=== PATIENT | male | born 1985 | race Caucasian/White ===

== ENCOUNTER 2021-06-02 09:42 | Outpatient (REF) | payer MEDICAID, SELFPAY ==
[2021-06-02 10:25] LABS: Estimated Average Glucose 269 mg/dL
[2021-06-02 10:48] LABS: Anion Gap 13 (12-20); Blood Urea Nitrogen 10 mg/dL (9-16); Calcium 9.7 mg/dL (8.4-10.2); Carbon Dioxide 25 mmol/L (22-29); Chloride 104 mmol/L (96-108); Estimated Glomerular Filt Rate > 60; Glucose Fasting 270 mg/dL (60-99); Potassium 4.9 mmol/L (3.3-5.1); Sodium 137 mmol/L (135-145)
== END 2021-06-02 09:43 | disposition home or self-care (01) ==
LOC: HO.LAB 09:42
PROVIDERS: Visit Provider Psychiatry & Neurology Child & Adolescent Psychiatry
DX: F25.1 Schizoaffective disorder, depressive type (principal)
CPT/HCPCS: 36415; 80048; 83036

== ENCOUNTER 2021-09-20 09:02 | Outpatient (REF) | payer OTHER, SELFPAY ==
--- NOTE | ~2021-09-20 | XR_ITS ---
EXAMINATION: XR KNEE, LEFT CLINICAL INFORMATION: Sprain COMPARISON: None TECHNIQUE: Four views of the left knee. FINDINGS: Bones and soft tissues are normal. No fracture or joint effusion. Alignment is anatomic. Joint spaces are well maintained. No abnormal soft tissue calcification. XR/XR knee LT 4V IMPRESSION: Normal left knee.
== END 2021-09-20 09:03 | disposition home or self-care (01) ==
LOC: HO.HMGCX 09:02
PROVIDERS: Visit Provider Internal Medicine
DX: S83.92XD Sprain of unspecified site of left knee, subsequent encounter (principal)
CPT/HCPCS: 73564

== ENCOUNTER 2021-10-14 07:26 | Outpatient (REF) | payer OTHER, SELFPAY ==
--- NOTE | ~2021-10-14 | MR_ITS ---
EXAMINATION: MR SHOULDER WITHOUT CONTRAST, RIGHT CLINICAL INFORMATION: Pain in the right shoulder. COMPARISON: None TECHNIQUE: MRI of the shoulder without contrast was performed on a high-field scanner. FINDINGS: ROTATOR CUFF: There is a small articular sided insertional tear of the supraspinatus tendon measuring 0.8 cm AP and involving approximately one third of the tendon thickness. There is associated articular cortical irregularity at the footprint on the greater tuberosity. Subscapularis, infraspinatus, and teres minor are normal. No muscle atrophy or fatty infiltration. BICEPS: Normal. CORACOACROMIAL ARCH: The undersurface of the acromion is curved with no subacromial spur. The acromioclavicular joint is normal. Mild subacromial subdeltoid bursitis. LABRUM/CAPSULE: There is a subtle cleft of intermediate signal intensity undercutting the posteroinferior labrum between the 8 o'clock position and 7 o'clock position (image 13/24 of series 2). A small adjacent 2 mm paralabral cyst is suspected in this region. GLENOHUMERAL JOINT/MARROW: Small marginal osteophyte at the glenoid rim posteriorly. Articular cartilage appears well-preserved. No joint effusion. Subtle subcortical edema at the greater tuberosity humerus is reactive to the overlying rotator cuff tendinopathy. MR/MR shoulder RT wo con IMPRESSION: 1. Small 0.8 cm (AP) articular sided insertional tear of the supraspinatus tendon. 2. Possible small posteroinferior labral tear with a 2 mm paralabral cyst. 3. Mild subacromial subdeltoid bursitis.
== END 2021-10-14 07:27 | disposition home or self-care (01) ==
LOC: HO.MRI 07:26
PROVIDERS: Visit Provider Nurse Practitioner Family
DX: M25.511 Pain in right shoulder (principal)
CPT/HCPCS: 73221

== ENCOUNTER 2021-11-08 07:37 | Outpatient (REF) | payer OTHER, SELFPAY ==
--- NOTE | ~2021-11-08 | XR_ITS ---
EXAMINATION: XR SHOULDER, RIGHT CLINICAL INFORMATION: Pain. COMPARISON: Portions of the right shoulder MRI dated 10/14/2021. TECHNIQUE: AP neutral,, scapular Y, and axillary views of the right shoulder. FINDINGS: The bones and soft tissues are normal. No fracture. Glenohumeral and acromioclavicular alignment is anatomic with normal joint space. No abnormal soft tissue calcifications. XR/XR shoulder RT min 2V IMPRESSION: Normal right shoulder.
== END 2021-11-08 07:38 | disposition home or self-care (01) ==
LOC: HO.HOSX 07:37
PROVIDERS: Visit Provider Physician Assistant
DX: M75.101 Unspecified rotator cuff tear or rupture of right shoulder, not specified as traumatic (principal); M54.50 Low back pain, unspecified
CPT/HCPCS: 73030; 99202

== ENCOUNTER 2021-11-23 08:00 | Outpatient (REF) | payer OTHER, SELFPAY ==
[2021-11-23 11:41] LABS: MANUAL DIFF FLAG NO
[2021-11-23 11:44] LABS: Appearance Urine CLEAR; Color Urine YELLOW; Glucose Urine UA NEG (NEG); Leukocyte Esterase Urine NEG (NEG); Nitrite Urine NEG (NEG); Specific Gravity - Urine >= 1.030 (1.005-1.025); Urine Blood NEG (NEG); Urine Ketones NEG (NEG); Urine Protein NEG (NEG-TRACE)
[2021-11-23 11:52] LABS: Basophils Absolute Auto 0.1 X10*3/uL (0.0-0.2); Basophils Percent Auto 0.9 % (0-2); Eosinophils Absolute Auto 0.3 X10*3/uL (0.0-0.4); Eosinophils Percent Auto 2.5 % (0-4); Hematocrit 47.1 % (42.0-52.0); Hemoglobin 16.7 g/dl (14.0-18.0); Imm Gran Abs Auto 0.23 X10*3/uL (0.00-0.03); Imm Gran Pct Auto 2.3 % (0.0-0.4); Lymphocytes Absolute Auto 3.1 X10*3/uL (1.2-4.9); Lymphocytes Percent Auto 30.9 % (20-40); Mean Corpuscular HGB Conc 35.5 g/dl (31.0-36.0); Mean Corpuscular Hemoglobin 31.1 pg (27.0-33.0); Mean Corpuscular Volume 87.7 fL (80.0-98.0); Mean Platelet Volume 10.1 fL (9.4-12.4); Monocytes Absolute Auto 0.8 X10*3/uL (0.1-1.2); Monocytes Percent Auto 7.5 % (2-11); Neutrophils Absolute Auto 5.6 x10*3/uL (2.0-8.3); Neutrophils Percent Auto 55.9 % (45-73); Platelet Count 297 X10*3/uL (160-400); Red Blood Count 5.37 X10*6/uL (4.60-5.80); Red Cell Distribution Width 12.6 % (11.0-16.0)
[2021-11-23 12:00] LABS: Estimated Average Glucose 140 mg/dL; Hemoglobin A1c % 6.5 %
[2021-11-23 12:15] LABS: Alanine Aminotransferase 38 U/L (0-40); Albumin Level 4.6 g/dL (3.5-5.0); Alkaline Phosphatase 65 U/L (39-117); Anion Gap 15 (12-20); Aspartate Amino Transferase 27 U/L (5-37); Bilirubin Total 0.5 mg/dL (0.0-1.0); Blood Urea Nitrogen 13 mg/dL (9-16); Calcium 9.3 mg/dL (8.4-10.2); Carbon Dioxide 25 mmol/L (22-29); Chloride 104 mmol/L (96-108); Cholesterol 178 mg/dL; Estimated Glomerular Filt Rate > 60; Glucose Fasting 163 mg/dL (60-99); HDL Cholesterol 37 mg/dL; LDL Cholesterol Calculated 117 mg/dl; Potassium 4.7 mmol/L (3.3-5.1); Sodium 139 mmol/L (135-145); Total Protein 7.2 g/dL (6.5-8.0); Triglycerides 120 mg/dL
[2021-11-23 12:23] LABS: TSH reflex Free T4 1.52 uIU/mL (0.32-4.0)
[2021-11-23 12:26] LABS: Microalbum/Creatinine Ratio Ur 3.7 ug/mg cr
== END 2021-11-23 08:01 | disposition home or self-care (01) ==
LOC: HO.HMGCLDS 08:00
PROVIDERS: PCP Nurse Practitioner Family; Visit Provider Nurse Practitioner Family
DX: Z00.00 Encounter for general adult medical examination without abnormal findings (principal); E11.9 Type 2 diabetes mellitus without complications
CPT/HCPCS: 36415; 80053; 80061; 81003; 82043; 83036; 84443; 85025

== ENCOUNTER → 2021-12-12 09:23 | Outpatient (BNVA) | payer OTHER, SELFPAY | PROVIDERS: PCP Nurse Practitioner Family; Visit Provider Internal Medicine | DX: M54.50 Low back pain, unspecified (principal); M25.552 Pain in left hip; M53.3 Sacrococcygeal disorders, not elsewhere classified | CPT/HCPCS: 99202 ==

== ENCOUNTER 2022-01-18 09:00 | Outpatient (RCR) | payer OTHER, SELFPAY ==
--- NOTE | 2022-01-03 08:54 | MHC.PT.EP ---
[facility] [place] [facility] [place] [facility] [place] [facility] [address] Mai [address] [phone] F: [phone] F: [phone] F: [phone] F: [phone] Physical Therapy Plan of Care Date of Evaluation: Date of Surgery: n/a Diagnosis: low back pain, pain in L hip Assessment: Patient is a 36 year old male presenting to PT with complaints of pain in his low back and L hip. Pt reports onset of pain began as a child due to shattering his tailbone . He presents today with impairments in pain, lumbar ROM, hip strength, core strength, and posture. 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 Pt expresses terminal make up operator goal of reducing pain, and is motivated to work towards this in PT. Clinical presentation today is most consistent with signs and sx associated with chronic hip and back pain likely as a result of injuries as a child and pt will benefit from skilled PT to address the following problems and impairments noted upon evaluation: pain, lumbar ROM, hip strength, core strength, and posture. Recommend following up with ortho regarding his L hip and feeling like it is popping out at times. These problems limit the patient with the following functional activities: standing, sitting, ADLs, work. The prescribed treatment plan of care is medically necessary. Co-morbidities of DM were identified and taken into considerations of plan of care. Pt was educated on HEP, role of PT, prognosis, POC. Frequency and Duration: The patient will be seen 2 x week x 4 weeks Short Term Goals: Pt will demosntrate improved hip MMT strength by 1/3 grade in 2 weeks for improved lumbopelvic stability. Pt will demonstrate ability to perform PPT with good TA recruitment in 2 weeks. Pt will demonstrate improved postural awareness by sitting with biomechanically correct posture without cues throughout session to improve overall postural function in 2 weeks. Quality Process Lead Goals: Pt will demonstrate improved Herminio score by 10% in 4 weeks for improved functional mobility. Pt will demonstrate ability to stand with minimal to no pain in 4 weeks for improved tolerance to work. Pt will demonstrate ability to complete all ADLs with min to no pain in 4 weeks for return to PLOF. Treatment Plan: Modalities to reduce pain, spasms and effusion. Manual therapy to restore motion and function. Therapeutic exercise to improve strength and flexibility. Neuromuscular re-education for posture and balance. Therapeutic activities to return to functional activities of daily living. Electronically signed by: Dari Garza, PT, DPT, ATC Please sign and return to therapist. Thank you for your referral.
--- NOTE | 2022-01-27 08:54 | MHC.PT.DC ---
[facility] [place] [facility] [place] Office [place] Office [address] [phone] F: [phone] F: [phone] F: [phone] F: [phone] Physical Therapy Discharge Report Diagnosis: low back pain, pain in L hip Date of Surgery: n/a Date of Evaluation: 01/03/22 Date of Discharge: 01/27/22 Treatments to Date: 5 Cancellations to Date: 1 No Shows to Date: 0 Discharge Status: Patient Elected to Stop Discharge Summary: Pt self d/c. Called stating he would like to stop therapy at this time. Electronically signed by: Dari Garza, PT, DPT, ATC Please sign and return to therapist. Thank you for your referral.
== END 2022-01-27 08:55 | disposition home or self-care (01) ==
LOC: HO.PTCHIC 09:00
PROVIDERS: PCP Nurse Practitioner Family; Visit Provider Internal Medicine
DX: M54.50 Low back pain, unspecified (principal); M53.3 Sacrococcygeal disorders, not elsewhere classified; M25.552 Pain in left hip
CPT/HCPCS: 97110; 97161

== ENCOUNTER 2022-02-06 08:30 | Outpatient (REF) | payer OTHER, SELFPAY ==
--- NOTE | ~2022-02-06 | XR_ITS ---
EXAMINATION: XR HIP, LEFT CLINICAL INFORMATION: Pain. COMPARISON: None TECHNIQUE: AP and frog-leg lateral views of the left hip. FINDINGS: Bony alignment and mineralization are normal. The left acetabular joint space is well-maintained. There is minimal peripheral osteophyte formation of the left acetabular roof. The left femoral head appears smooth. There is no fracture or dislocation. A sclerotic, well marginated bone island is seen within the left ischium. No foreign body is seen. XR/XR hip LT min 2V IMPRESSION: Minimal osteoarthritic change is seen of the left hip. No fracture or dislocation is seen.
== END 2022-02-06 08:31 | disposition home or self-care (01) ==
LOC: HO.HMGCX 08:30
PROVIDERS: PCP Nurse Practitioner Family; Visit Provider Internal Medicine
DX: M25.552 Pain in left hip (principal); M54.50 Low back pain, unspecified; Z79.899 Other long term (current) drug therapy
CPT/HCPCS: 73502; 99212

== ENCOUNTER → 2022-04-10 15:31 | Outpatient (BNVA) | payer OTHER, SELFPAY | PROVIDERS: PCP Nurse Practitioner Family; Visit Provider Internal Medicine | DX: M54.50 Low back pain, unspecified (principal); M25.552 Pain in left hip | CPT/HCPCS: 99212 ==

== ENCOUNTER 2022-06-08 08:00 | Outpatient (RCR) | payer OTHER, SELFPAY ==
--- NOTE | 2022-05-17 16:17 | MHC.PT.EP ---
[facility] [place] Office [place] Office [place] Office [address] [phone] F: [phone] F: [phone] F: [phone] F: [phone] Physical Therapy Plan of Care Date of Evaluation: Date of Surgery: Diagnosis: LBP Assessment: Pt is a 36 y/o male referred to PT for eval and treat of low back pain resulting in decreased tolerance for sitting, walking and standing, performing heavy HH chores, as well as disturbed sleep secondary to decreased trunk ROM and strength, decreased hip strength, L LE radicular Sx, TTP of + L lower extremity neural tension test, and pain. Pt is deemed an appropriate candidate to receive skilled PT services to address their physical impairments in order to improve thier functional ability. Frequency and Duration: The patient will be seen 4 x/ wk x 4 wks. Short Term Goals: Initiate HEP LE radicular/ sciatic Sx abolished. Cap Blocker Goals: Initiate HEP Improve core strength to > good; initial Good (-) (diastasis recti noted) Pt will be able to sit > 1 hour with managed Sx; initial: < 10 min. Pt will be able to walk long distances with some pain; initial: Pain limits from walking even short distances. Treatment Plan: Modalities to reduce pain, spasms and effusion. Manual therapy to restore motion and function. Therapeutic exercise to improve strength and flexibility. Neuromuscular re-education for posture and balance. Therapeutic activities to return to functional activities of daily living. Electronically signed by: José Miguel Fine PT Please sign and return to therapist. Thank you for your referral.
--- NOTE | 2022-07-11 14:24 | MHC.PT.DC ---
[facility] [place] [facility] [place] [facility] [place] [facility] [address] Mai [address] [facility] [phone] F: [phone] F: [phone] F: [phone] F: [phone] Physical Therapy Discharge Report Diagnosis: LBP Date of Surgery: Date of Evaluation: 05/17/22 Date of Discharge: 07/11/22 Treatments to Date: 7 Cancellations to Date: 3 No Shows to Date: Discharge Status: Improved Function Independent with HEP Patient Elected to Stop Discharge Summary: Pt logged 3 cancellations at the end of his therapy electing to end his treatment after making some improvements. Electronically signed by: José Miguel Fine PT. Please sign and return to therapist. Thank you for your referral.
== END 2022-07-11 14:26 | disposition home or self-care (01) ==
LOC: HO.PTCHIC 08:00
PROVIDERS: PCP Nurse Practitioner Family; Visit Provider Internal Medicine
DX: M54.50 Low back pain, unspecified (principal)
CPT/HCPCS: 97110; 97161

== ENCOUNTER 2022-06-24 11:01 | Outpatient (REF) | payer OTHER, SELFPAY ==
--- NOTE | ~2022-06-24 | XR_ITS ---
EXAMINATION: XR CHEST CLINICAL INFORMATION: Cough. COMPARISON: None TECHNIQUE: 2 views of the chest were obtained. FINDINGS: No significant abnormality is noted involving the heart, lungs, mediastinum, bony thorax or soft tissues. XR/XR chest 2V IMPRESSION: Unremarkable chest examination.
== END 2022-06-24 11:02 | disposition home or self-care (01) ==
LOC: HO.HMGCX 11:01
PROVIDERS: PCP Nurse Practitioner Family; Visit Provider Physician Assistant Medical
DX: R05.9 Cough, unspecified (principal)
CPT/HCPCS: 71046

== ENCOUNTER 2022-06-24 11:14 | Outpatient (REF) | payer OTHER, SELFPAY ==
[2022-06-24 14:58] LABS: Influenza A PCR NEGATIVE (Negative); Influenza B PCR NEGATIVE (Negative); Resp Syncy Virus RNA Qual PCR NEGATIVE (Negative); SARS COV2 PCR INHOUSE NEGATIVE (Negative)
== END 2022-06-24 11:15 | disposition home or self-care (01) ==
LOC: HO.LAB 11:14
PROVIDERS: Visit Provider Physician Assistant Medical
DX: Z20.822 Contact with and (suspected) exposure to COVID-19 (principal); R05.9 Cough, unspecified
CPT/HCPCS: 0241U

== ENCOUNTER 2022-09-20 08:00 | Outpatient (REF) | payer OTHER, SELFPAY ==
[2022-09-20 11:13] LABS: Appearance Urine Turbid; Color Urine Yellow; Glucose Urine UA Negative (Negative); Leukocyte Esterase Urine Negative (Negative); Nitrite Urine Negative (Negative); PH 5.5 (5.0-9.0); Specific Gravity - Urine 1.025 (1.005-1.025); Urine Blood Negative (Negative); Urine Ketones Negative (Negative); Urine Protein Negative (Neg-Trace)
[2022-09-20 11:20] LABS: MANUAL DIFF FLAG NO
[2022-09-20 11:46] LABS: Basophils Absolute Auto 0.1 X10*3/uL (0.0-0.2); Basophils Percent Auto 0.8 % (0-2); Eosinophils Absolute Auto 0.1 X10*3/uL (0.0-0.4); Eosinophils Percent Auto 1.2 % (0-4); Hematocrit 44.3 % (42.0-52.0); Imm Gran Abs Auto 0.09 X10*3/uL (0.00-0.03); Lymphocytes Absolute Auto 2.7 X10*3/uL (1.2-4.9); Mean Corpuscular HGB Conc 36.1 g/dl (31.0-36.0); Mean Corpuscular Hemoglobin 30.5 pg (27.0-33.0); Mean Corpuscular Volume 84.5 fL (80.0-98.0); Mean Platelet Volume 10.3 fL (9.4-12.4); Monocytes Absolute Auto 0.6 X10*3/uL (0.1-1.2); Monocytes Percent Auto 6.8 % (2-11); Neutrophils Absolute Auto 5.8 x10*3/uL (2.0-8.3); Neutrophils Percent Auto 61.2 % (45-73); Platelet Count 283 X10*3/uL (160-400); Red Blood Count 5.24 X10*6/uL (4.60-5.80); Red Cell Distribution Width 12.3 % (11.0-16.0); White Blood Count 9.4 X10*3/uL (4.8-10.8)
[2022-09-20 11:57] LABS: Estimated Average Glucose 128 mg/dL; Hemoglobin A1c % 6.1 %
[2022-09-20 12:01] LABS: Alanine Aminotransferase 38 U/L (0-40); Albumin Level 4.7 g/dL (3.5-5.0); Alkaline Phosphatase 72 U/L (39-117); Anion Gap 14 (12-20); Aspartate Amino Transferase 27 U/L (5-37); Bilirubin Total 0.7 mg/dL (0.0-1.0); Blood Urea Nitrogen 15 mg/dL (9-16); Calcium 9.5 mg/dL (8.4-10.2); Carbon Dioxide 22 mmol/L (22-29); Chloride 109 mmol/L (96-108); Cholesterol 165 mg/dL; Estimated Glomerular Filt Rate > 60; Glucose Fasting 145 mg/dL (60-99); HDL Cholesterol 33 mg/dL; LDL Cholesterol Calculated 116 mg/dl; Potassium 4.5 mmol/L (3.3-5.1); Sodium 140 mmol/L (135-145); TSH reflex Free T4 1.52 uIU/mL (0.32-4.0); Total Protein 7.1 g/dL (6.5-8.0); Triglycerides 82 mg/dL
== END 2022-09-20 08:01 | disposition home or self-care (01) ==
LOC: HO.HMGCLDS 08:00
PROVIDERS: Absent Provider Clinical Nurse Specialist Psychiatric/Mental Health, Adult; PCP Nurse Practitioner Family; Visit Provider Nurse Practitioner Family
DX: F25.1 Schizoaffective disorder, depressive type (principal); E11.9 Type 2 diabetes mellitus without complications
CPT/HCPCS: 36415; 80053; 80061; 81003; 83036; 84443; 85025

== ENCOUNTER → 2022-09-20 09:37 | Outpatient (REF) | payer OTHER, SELFPAY ==
--- NOTE | 2022-09-20 09:43 | ECG_ITS ---
Test Reason : 279.899 Blood Pressure : / mmHG Vent. Rate : 070 BPM Atrial Rate : 070 BPM P-R Int : 178 ms QRS Dur : 082 ms QT Int : 384 ms P-R-T Axes : -05 -05 016 degrees QTc Int : 414 ms Sinus rhythm with marked sinus arrhythmia Otherwise normal ECG No previous ECGs available Referred By: Salina Gil Electronically Signed By:Jamir Orozco
== END ==
LOC: HO.CARD 09:37
PROVIDERS: PCP Nurse Practitioner Family; Visit Provider Clinical Nurse Specialist Psychiatric/Mental Health, Adult
DX: Z79.899 Other long term (current) drug therapy (principal)
CPT/HCPCS: 93005

== ENCOUNTER 2023-04-11 07:52 | Outpatient (REF) | payer OTHER, SELFPAY ==
[2023-04-11 11:31] LABS: MANUAL DIFF FLAG NO
[2023-04-11 11:37] LABS: Basophils Absolute Auto 0.1 X10*3/uL (0.0-0.2); Basophils Percent Auto 1.1 % (0-2); Eosinophils Absolute Auto 0.2 X10*3/uL (0.0-0.4); Eosinophils Percent Auto 1.9 % (0-4); Hematocrit 45.6 % (42.0-52.0); Hemoglobin 16.6 g/dl (14.0-18.0); Imm Gran Abs Auto 0.44 X10*3/uL (0.00-0.03); Imm Gran Pct Auto 4.2 % (0.0-0.4); Lymphocytes Absolute Auto 3.8 X10*3/uL (1.2-4.9); Mean Corpuscular HGB Conc 36.4 g/dl (31.0-36.0); Mean Corpuscular Hemoglobin 31.2 pg (27.0-33.0); Mean Corpuscular Volume 85.7 fL (80.0-98.0); Monocytes Absolute Auto 0.6 X10*3/uL (0.1-1.2); Neutrophils Absolute Auto 5.4 x10*3/uL (2.0-8.3); Neutrophils Percent Auto 50.8 % (45-73); Platelet Count 262 X10*3/uL (160-400); Red Blood Count 5.32 X10*6/uL (4.60-5.80); Red Cell Distribution Width 12.7 % (11.0-16.0); White Blood Count 10.6 X10*3/uL (4.8-10.8)
[2023-04-11 11:39] LABS: Appearance Urine Clear; Color Urine Yellow; Glucose Urine UA Negative (Negative); Leukocyte Esterase Urine Negative (Negative); Nitrite Urine Negative (Negative); PH 5.5 (5.0-9.0); Urine Blood Negative (Negative); Urine Ketones Negative (Negative); Urine Protein Negative (Neg-Trace)
[2023-04-11 12:39] LABS: Creatinine Urine 190.67 mg/dL; Microalbum/Creatinine Ratio Ur 5.7 ug/mg cr (<30)
[2023-04-11 12:40] LABS: Alanine Aminotransferase 59 U/L (0-40); Albumin Level 4.5 g/dL (3.5-5.0); Alkaline Phosphatase 63 U/L (39-117); Anion Gap 15 (12-20); Aspartate Amino Transferase 39 U/L (5-37); Bilirubin Total 0.6 mg/dL (0.0-1.0); Blood Urea Nitrogen 12 mg/dL (9-16); Calcium 9.4 mg/dL (8.4-10.2); Carbon Dioxide 22 mmol/L (22-29); Chloride 104 mmol/L (96-108); Cholesterol 184 mg/dL (<200); Estimated Glomerular Filt Rate > 60; Glucose Fasting 199 mg/dL (60-99); HDL Cholesterol 37 mg/dL (>40); LDL Cholesterol Calculated 105 mg/dL (<100); Potassium 4.2 mmol/L (3.3-5.1); Sodium 137 mmol/L (135-145); Total Protein 7.5 g/dL (6.5-8.0); Triglycerides 213 mg/dL (<150)
[2023-04-11 13:00] LABS: TSH reflex Free T4 1.75 uIU/mL (0.32-4.0)
[2023-04-16 15:07] LABS: Testosterone, Total 226 ng/dL (250-1100)
== END 2023-04-11 07:53 | disposition home or self-care (01) ==
LOC: HO.HMGCLDS 07:52
PROVIDERS: PCP Nurse Practitioner Family; Visit Provider Nurse Practitioner Family
DX: Z00.00 Encounter for general adult medical examination without abnormal findings (principal); E11.9 Type 2 diabetes mellitus without complications; R53.83 Other fatigue
CPT/HCPCS: 36415; 80053; 80061; 81003; 82043; 82570; 84402; 84403; 84443; 85025

== ENCOUNTER 2023-04-11 08:42 | Outpatient (AMB) | payer OTHER, SELFPAY ==
--- NOTE | 2023-04-11 08:44 | MHC.PC.OV ---
Vital Signs 04/11/23 08:46 Height 5 ft 4 in Weight 222 lb 2 oz BMI 38.1 BP 118/78 Blood Pressure Location Lt brachial Position Sitting Pulse 102 H Pulse Source Pulse Oximeter Pulse Oximetry (%) 98 Oxygen Delivery Method Room Air Intake Visit Reasons: 4M follow up Allergies cefaclor [From Ceclor] Allergy (Mild, Verified 04/11/23 08:47) Rash sulfamethoxazole [From Bactrim] Allergy (Mild, Verified 04/11/23 08:47) Rash trimethoprim [From Bactrim] Allergy (Mild, Verified 04/11/23 08:47) Rash metformin Adverse Reaction (Intermediate, Verified 04/11/23 08:47) Nausea cillins Allergy (Intermediate, Uncoded 04/11/23 08:47) Anaphylaxis Medication List - Last Reconciled 04/11/23 by Luis Rojas [employer] W[employer] ATTENDANT- paliperidone palmitate (Invega Sustenna) mg IM Tobacco use date assessed: 12/13/22 HPI 4M follow up HPI Details Pt is a diabetic. A1C in office today is 7.0. Due for microalbumin, will order. Denies polyuria, polydipsia, and neuropathy. Pt denies any signs and symptoms of hypoglycemia and does know how to correct it. Due for eye exam, will refer to optometry. Pt has not been checking his blood sugar. Refuses pneumonia vaccine. Will start jardiance today. awaiting lab results, which were drawn this am. Highly encouraged pt start taking his sugars more often PFSH Social History Housing: House Patient Tobacco Use Status: Former Tobacco user Cigarettes Per Day: 4 e-Cigarette/Vaping Use: Currently Using Second Hand Smoke Exposure: No service: No Current occupational status: employed Cognitive needs: No Hearing needs: No Vision needs: No Questionnaire Thrive Questionnaire Date Thrive assessed: 08/15/22 KATIE-7 AMB Questionnaire KATIE-7 Date KATIE - 7 assessed: 08/15/22 Source: Developed by Drs. Ld Miller, Talia Gu, Isaac Hooks and colleagues, with an educational alfonso from [employer]. Review of Systems Const Reports as per HPI Physical exam (Primary Care) Vital Signs: Last Vital Signs Pulse 102 H 04/11/23 08:46 BP 118/78 04/11/23 08:46 Pulse Ox 98 04/11/23 08:46 Oxygen Delivery Method Room Air 04/11/23 08:46 BMI result Body Mass Index 38.1 Tobacco/Smoking Status: Tobacco use Status Tobacco use date assessed 12/13/22 04/11/23 08:46 Patient Tobacco Use Status Former Tobacco user 04/11/23 08:46 e-Cigarette/Vaping Use Currently Using 04/11/23 08:46 Thrive Assessment: Date of Thrive Assessment Date Thrive assessed 08/15/22 04/11/23 08:46 Const General: cooperative Nutritional Appearance: obese Orientation/consciousness: patient oriented x3 Resp Effort & Inspection: normal respiratory effort Auscultation: clear to auscultation bilaterally Cardio Rate: regular rate Rhythm: regular rhythm Heart sounds: S1 normal heart sound present and S2 normal heart sound present Neuro General: patient oriented x3 Extrem Other: bilat feet: + sensation of use of monofilament, no ulcerations or lesions Psych Appearance: grossly normal Mental Status: mental status grossly normal Speech and movement: Normal speech and movement present Affect: normal affect Attitude: cooperative Thought process: Normal thought process present Thought content: Normal thought content present Insight: Good insight present (Psych) Judgement: Good judgement present (Psych) Results AMB Hemoglobin A1c AMB Hemoglobin A1c 7.0 % Last Edit by EMANUEL Herring on 04/11/23 09:06 Assessment and Plan Assessment & Plan (1) Diabetes: Code(s): E11.9 - Type 2 diabetes mellitus without complications Plan: Labs ordered Plan The patient agreed to the use of a medical management specialist for this encounter. Scribed for SERGIO Summers by Cyndy Olivo medical management specialist, on 04/11/2023 at 08:55 EST Orders: Orders AMB Hemoglobin A1c Today Z13.9 - Encounter for screening, unspecified Referrals Optometry Referral E11.9 - Type 2 diabetes mellitus without complications Medications: New empagliflozin (Jardiance) 10 mg PO DAILY 30 days 30 tabs 3RF Coding Level of Care Code Est Pt Level 3 (77122) Diagnoses Diabetes E11.9
[2023-04-11 08:46] VITALS: BP 118/78; PULSE 102; O2SAT 98; BMI 38.1
== END 2023-04-11 11:38 | disposition home or self-care (01) ==
PROVIDERS: PCP Nurse Practitioner Family; Visit Provider Nurse Practitioner Family
DX: E11.9 Type 2 diabetes mellitus without complications (principal)
CPT/HCPCS: 83036; 99213

== ENCOUNTER 2023-05-18 07:58 | Outpatient (AMB) | payer OTHER, SELFPAY ==
--- NOTE | 2023-05-18 08:13 | MHC.OFFWIV ---
Intake Vital Signs 05/18/23 08:14 Height 5 ft 4 in Weight 222 lb BMI 38.1 BP 120/70 Blood Pressure Location Lt brachial Position Sitting Pulse 73 Pulse Source Pulse Oximeter Temp 98.0 F Temp Source Oral Pulse Oximetry (%) 98 Oxygen Delivery Method Room Air Intake Visit Reasons: EST/back pain right side (lobby) Intake Note: Pt is here today c/o lower Rt back pain, woke up with pain x1week ago Patient Tobacco Use Status: Former Tobacco user Allergies cefaclor [From Ceclor] Allergy (Mild, Verified 05/18/23 08:15) Rash sulfamethoxazole [From Bactrim] Allergy (Mild, Verified 05/18/23 08:15) Rash trimethoprim [From Bactrim] Allergy (Mild, Verified 05/18/23 08:15) Rash metformin Adverse Reaction (Intermediate, Verified 05/18/23 08:15) Nausea cillins Allergy (Intermediate, Uncoded 05/18/23 08:15) Anaphylaxis Do you need a note to return to daycare/school/sports/work: No HPI HPI Comments History of Present Illness Details This is a 37-year-old male who presents to the office today for sick visit. Patient complaining of right-sided low back pain x1 week. patient states he has a history of left-sided sciatica, which has been under good control with physical therapy and stretching exercises. He states that he has been extremely busy for the past 1 month and he has not been doing his exercises as much as he should be. He started to develop mild right-sided low back pain with radiation into his right buttock. He denies any specific trauma or injury that occurred 1 week ago. he denies any red flag symptoms such as fever/chills, saddle anesthesias, numbness/weakness / paresthesias of extremities, or bowel / bladder incontinence/ retention. He has no urinary symptoms such as urinary frequency/ urgency or hematuria. Patient is requesting a physical therapy referral. [facility] Social History Housing: House Patient Tobacco Use Status: Former Tobacco user Cigarettes Per Day: 4 e-Cigarette/Vaping Use: Currently Using Second Hand Smoke Exposure: No service: No Current occupational status: employed Cognitive needs: No Hearing needs: No Vision needs: No Review of Systems Const All systems reviewed & are unremarkable except as noted in HPI and below Reports no additional complaints Eyes Reports no additional complaints ENT Reports no additional complaints Card Reports no additional complaints Resp Reports no additional complaints GI Reports no additional complaints Reports no additional complaints Musc Reports no additional complaints Skin/Breast Reports system reviewed and no additional complaints, except as documented Neuro Reports no additional complaints Psych Reports no additional complaints Endo Reports no additional complaints Tomy/Lymph Reports no additional complaints Aller/Immun Reports no additional complaints Physical Exam Vital Signs: Last Vital Signs Temp 98.0 F 05/18/23 08:14 Pulse 73 05/18/23 08:14 BP 120/70 05/18/23 08:14 Pulse Ox 98 05/18/23 08:14 Oxygen Delivery Method Room Air 05/18/23 08:14 BMI result Body Mass Index 38.1 Const Other: Vital signs reviewed. Constitutional: Non-toxic appearing. No acute distress. Well-developed and well-nourished. HEENT: Normocephalic and atraumatic. Skin: Warm and dry. No rashes or lesions noted. Neck: Full and painless range of motion. No cervical lymphadenopathy. Cardio: Regular rate. No lower extremity edema. No JVD. Pulmonary: No respiratory distress. No accessory muscle usage. Gastrointestinal: Soft, nontender, and nondistended in all 4 quadrants. Normoactive bowel sounds in all 4 quadrants. Genitourinary: No CVA tenderness. Musculoskeletal: Mild tenderness to palpation of the right lumbar paraspinal musculature. No midline or spinous process tenderness to palpation. Neuro: Alert and oriented x4. Cranial nerves 2-12 grossly intact. No focal deficits appreciated. Psych: Normal mood and affect. Assessment & Plan Assessment & Plan (1) Right sided sciatica: Code(s): M54.31 - Sciatica, right side Plan: This is a 37-year-old male presenting to the office complaining of right-sided low back pain x1 week. on physical examination, he is mild tenderness to palpation of the right lumbar paraspinal musculature but no midline / spinous process tenderness to palpation. Patient has no red flag symptoms to suggest a neurosurgical emergency. Patient has been given a referral to physical therapy. Patient has been given a prescription for p.o. cyclobenzaprine 10 mg every night at bedtime as needed for muscle spasms. Recommended acetaminophen/ibuprofen for pain management. Recommended heat to the area. Patient was advised to follow-up here or proceed to the emergency room if he were to develop persistent/worsening symptoms. Patient verbalizes understanding and he is in agreement with the plan. Orders: Orders PT Evaluation and Treatment Today M54.31 - Sciatica, right side Medications: New cyclobenzaprine 10 mg PO BEDTIME PRN 30 tabs 0RF muscle spasm Coding Level of Care Code Est Pt Level 3 (53729) Diagnoses Right sided sciatica M54.31
[2023-05-18 08:14] VITALS: BP 120/70; PULSE 73; TEMP 36.7; O2SAT 98; BMI 38.1
== END 2023-05-18 08:40 | disposition home or self-care (01) ==
PROVIDERS: PCP Nurse Practitioner Family; Visit Provider Physician Assistant Medical
DX: M54.31 Sciatica, right side (principal); F17.290 Nicotine dependence, other tobacco product, uncomplicated
CPT/HCPCS: 99213

== ENCOUNTER 2023-05-25 08:15 | Outpatient (REF) | payer OTHER, SELFPAY ==
[2023-05-25 12:22] LABS: MANUAL DIFF FLAG NO
[2023-05-25 12:31] LABS: Basophils Absolute Auto 0.1 X10*3/uL (0.0-0.2); Basophils Percent Auto 1.2 % (0-2); Eosinophils Absolute Auto 0.1 X10*3/uL (0.0-0.4); Eosinophils Percent Auto 1.4 % (0-4); Hematocrit 46.5 % (42.0-52.0); Hemoglobin 16.6 g/dl (14.0-18.0); Imm Gran Abs Auto 0.41 X10*3/uL (0.00-0.03); Imm Gran Pct Auto 4.1 % (0.0-0.4); Lymphocytes Absolute Auto 3.8 X10*3/uL (1.2-4.9); Lymphocytes Percent Auto 38.1 % (20-40); Mean Corpuscular HGB Conc 35.7 g/dl (31.0-36.0); Mean Corpuscular Hemoglobin 30.5 pg (27.0-33.0); Mean Corpuscular Volume 85.3 fL (80.0-98.0); Mean Platelet Volume 9.8 fL (9.4-12.4); Monocytes Absolute Auto 0.6 X10*3/uL (0.1-1.2); Monocytes Percent Auto 6.4 % (2-11); Neutrophils Absolute Auto 4.9 x10*3/uL (2.0-8.3); Neutrophils Percent Auto 48.8 % (45-73); Platelet Count 269 X10*3/uL (160-400); Red Blood Count 5.45 X10*6/uL (4.60-5.80); Red Cell Distribution Width 12.8 % (11.0-16.0)
[2023-05-25 14:58] LABS: Alanine Aminotransferase 63 U/L (0-40); Albumin Level 4.7 g/dL (3.5-5.0); Alkaline Phosphatase 59 U/L (39-117); Anion Gap 17 (12-20); Aspartate Amino Transferase 41 U/L (5-37); Bilirubin Total 0.7 mg/dL (0.0-1.0); Blood Urea Nitrogen 17 mg/dL (9-16); Calcium 9.6 mg/dL (8.4-10.2); Carbon Dioxide 20 mmol/L (22-29); Chloride 108 mmol/L (96-108); Estimated Glomerular Filt Rate > 60; Glucose Fasting 175 mg/dL (60-99); Potassium 4.4 mmol/L (3.3-5.1); Sodium 141 mmol/L (135-145); Thyroid Stimulating Hormone 1.03 uIU/mL (0.32-4.0); Total Protein 7.8 g/dL (6.5-8.0)
== END 2023-05-25 08:16 | disposition home or self-care (01) ==
LOC: HO.HMGCLDS 08:15
PROVIDERS: PCP Nurse Practitioner Family; Visit Provider Clinical Nurse Specialist Psychiatric/Mental Health, Adult
DX: F43.21 Adjustment disorder with depressed mood (principal); F25.1 Schizoaffective disorder, depressive type; Z79.899 Other long term (current) drug therapy
CPT/HCPCS: 36415; 80053; 84443; 85025

== ENCOUNTER 2023-08-07 08:19 | Outpatient (AMB) | payer OTHER, SELFPAY ==
--- NOTE | 2023-08-07 08:20 | AM.OFFWIN_ITS ---
Intake Intake Visit Reasons: 4 Month follow up Patient Tobacco Use Status: Former Tobacco user Allergies cefaclor [From Ceclor] Allergy (Mild, Verified 05/18/23 08:15) Rash sulfamethoxazole [From Bactrim] Allergy (Mild, Verified 05/18/23 08:15) Rash trimethoprim [From Bactrim] Allergy (Mild, Verified 05/18/23 08:15) Rash metformin Adverse Reaction (Intermediate, Verified 05/18/23 08:15) Nausea cillins Allergy (Intermediate, Uncoded 05/18/23 08:15) Anaphylaxis PFSH Social History Housing: House Patient Tobacco Use Status: Former Tobacco user Cigarettes Per Day: 4 e-Cigarette/Vaping Use: Currently Using Second Hand Smoke Exposure: No service: No Current occupational status: employed Cognitive needs: No Hearing needs: No Vision needs: No Coding
[2023-08-07 08:21] VITALS: BP 120/74; PULSE 83; O2SAT 98; BMI 37.7
--- NOTE | 2023-08-07 08:22 | MHC.PC.OV ---
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 Allergies cefaclor [From Ceclor] Allergy (Mild, Verified 08/07/23 08:37) Rash sulfamethoxazole [From Bactrim] Allergy (Mild, Verified 08/07/23 08:37) Rash trimethoprim [From Bactrim] Allergy (Mild, Verified 08/07/23 08:37) Rash metformin Adverse Reaction (Intermediate, Verified 08/07/23 08:37) Nausea cillins Allergy (Intermediate, Uncoded 08/07/23 08:37) Anaphylaxis Medication List - Last Reconciled 08/07/23 by SERGIO Ray atorvastatin 10 mg PO BEDTIME 90 days blood sugar diagnostic (FreeStyle Lite Strips) tid testing blood-glucose meter (FreeStyle Lite Meter kit) TID testing cyclobenzaprine 10 mg PO BEDTIME PRN empagliflozin 25 mg PO DAILY 30 days lancets (FreeStyle Lancets) TID testing losartan 25 mg PO DAILY 90 days paliperidone palmitate (Invega Sustenna) mg IM Tobacco use date assessed: 08/07/23 Dental Screening Dental Screen Date: 08/07/23 Did you have a dental visit in the last 12 months?: Yes Did you have a dental problem in the last 6 months where you did not have access to dental care?: No Was dental information given to patient?: Patient has dentist HPI 4 Month follow up HPI Details Pt is a diabetic, on an ARB and a statin. A1C in office today is 7.5. Microalbumin is up to date. Denies polyuria, polydipsia, and neuropathy. Pt denies any signs and symptoms of hypoglycemia and does know how to correct it. Pt has not been checking his blood sugar. Will increase jardiance from 10mg to 25mg. Pt reports eating more fast food lately. Pt verbalizes understanding the consequences of a poor diet Optometry referral has already been placed. refuses pneumo-vaccines currently [facility] Surgical History S/P tonsillectomy S/P panniculectomy Social History Housing: House Patient Tobacco Use Status: Former Tobacco user Cigarettes Per Day: 4 e-Cigarette/Vaping Use: Currently Using Second Hand Smoke Exposure: No service: No Current occupational status: employed Cognitive needs: No Hearing needs: No Vision needs: No Questionnaire PHQ-9 Over the last 2 weeks, how often have you been bothered by any of the following problems? 1. Little interest or pleasure in doing things: not at all 2. Feeling down, depressed, or hopeless: not at all 3. Trouble falling or staying asleep, or sleeping too much: not at all 4. Feeling tired or having little energy: not at all 5. Poor appetite or overeating: not at all 6. Feeling bad about yourself - or that you are a failure or have let yourself or your family down: not at all 7. Trouble concentrating on things, such as reading the newspaper or watching television: not at all 8. Moving or speaking so slowly that other people could have noticed. Or the opposite - being so fidgety or restless that you have been moving around a lot more than usual: not at all 9. Thoughts that you would be better off or of hurting yourself in some way: not at all Total score: 0 Depression Screening Interpretation: Negative Depression Screening Done: Yes 52784 - PHQ-9 Billing: Yes Source: Developed by Drs. Ld Miller, Talia Gu, Isaac Hooks and colleagues, with an educational alfonso from [employer]. Thrive Questionnaire Date Thrive assessed: 08/07/23 I am a: Patient What is your living situation today?: I have a steady place to live Within the past 12 months, did the food you bought not last and you didn't have the money to get more?: Never true Within the past 12 months, did you worry whether your food would run out before you got money to buy more?: Never true Do you have trouble paying for medicines?: No Do you have trouble getting transportation to medical appointments?: No Do you have trouble paying your heating and electricity bill?: No Do you have trouble taking care of your child, family member or friend?: No Do you have trouble with day-to-day activities such as bathing, preparing meals, shopping, managing finances, etc.?: No Are you currently unemployed and looking for a job?: No Are you interested in more education?: No Please select the resources that you would like help with: None Currently or been in a relationship where the following occur: no concerns reported THRIVE Score: 0 AUDIT C Alcohol Use Questionnaire (AUDIT-C) 1. How often do you have a drink containing alcohol?: Never 3. How often do you have six or more drinks on one occasion?: Never Total Score: 0 Score Reviewed/Action Taken: Yes KATIE-7 AMB Questionnaire KATIE-7 Date KATIE - 7 assessed: 08/07/23 Feeling nervous, anxious, or on edge: 0 = Not at all Not being able to stop or control worryin = Not at all Worrying too much about different things: 1 = Several days Trouble relaxin = Not at all Being so restless that it is hard to sit still: 0 = Not at all Becoming easily annoyed or irritable: 0 = Not at all Feeling afraid as if something awful might happen: 0 = Not at all Total KATIE-7 score (0-4 normal; 5-9 mild; 10-14 moderate; 15-21 severe): 1 Source: Developed by Drs. Ld Miller, Talia Gu, Isaac Hooks and colleagues, with an educational alfonso from [employer]. KATIE-7 Assessment Billing KATIE-7 Assessment Tool: KATIE-7 Assessment 59951 Review of Systems Const Reports as per HPI Physical exam (Primary Care) Vital Signs: Last Vital Signs Pulse 83 08/07/23 08:21 BP 120/74 08/07/23 08:21 Pulse Ox 98 08/07/23 08:21 Oxygen Delivery Method Room Air 08/07/23 08:21 BMI result Body Mass Index 37.7 Tobacco/Smoking Status: Tobacco use Status Tobacco use date assessed 08/07/23 08/07/23 08:25 Patient Tobacco Use Status Former Tobacco user 08/07/23 08:25 e-Cigarette/Vaping Use Currently Using 08/07/23 08:25 Depression Screening Interpretation: Negative Thrive Assessment: Date of Thrive Assessment Date Thrive assessed 08/15/22 08/07/23 08:25 Currently or been in a relationship where the following occur: no concerns reported Const General: cooperative Nutritional Appearance: obese Orientation/consciousness: patient oriented x3 Resp Effort & Inspection: normal respiratory effort Auscultation: clear to auscultation bilaterally Cardio Rate: regular rate Rhythm: regular rhythm Heart sounds: S1 normal heart sound present and S2 normal heart sound present Neuro General: patient oriented x3 Extrem Other: bilat feet: + sensation with use of monofilament, feet intact Psych Appearance: grossly normal Mental Status: mental status grossly normal Speech and movement: Normal speech and movement present Affect: normal affect Attitude: cooperative Thought process: Normal thought process present Thought content: Normal thought content present Insight: Good insight present (Psych) Judgement: Good judgement present (Psych) Assessment and Plan Assessment & Plan (1) Diabetes: Code(s): E11.9 - Type 2 diabetes mellitus without complications Plan work on diet, increase jardiance from 10mg to 25mg daily. Orders: Orders Complete Blood Count Auto Diff Today E11.9 - Type 2 diabetes mellitus without complications TSH reflex Free T4 Today E11.9 - Type 2 diabetes mellitus without complications Lipid Panel Today E11.9 - Type 2 diabetes mellitus without complications Comprehensive [place]. Panel Fast Today E11.9 - Type 2 diabetes mellitus without complications UA CC w/rflx Micro + Cult Today E11.9 - Type 2 diabetes mellitus without complications Medications: Changed From empagliflozin (Jardiance) 10 mg PO DAILY 30 days 30 tabs 3RF To empagliflozin 25 mg PO DAILY 30 days 30 tabs 3RF Coding Level of Care Code Est Pt Level 3 (14885) Diagnoses Diabetes E11.9 Additional Codes KATIE-7 Assessment Billing - KATIE-7 Assessment Tool: KATIE-7 Assessment 12131 ([id number])
== END 2023-08-07 09:26 | disposition home or self-care (01) ==
PROVIDERS: PCP Nurse Practitioner Family; Visit Provider Nurse Practitioner Family
DX: E11.9 Type 2 diabetes mellitus without complications (principal)
CPT/HCPCS: 83036; 99213

== ENCOUNTER 2023-12-25 07:27 | Outpatient (AMB) | payer OTHER, SELFPAY ==
[2023-12-25 07:40] VITALS: BP 112/70; PULSE 86; O2SAT 97; BMI 35.7
--- NOTE | 2023-12-25 07:40 | A.OFFPC_ITS ---
Vital Signs 12/25/23 07:40 Height 5 ft 4 in Weight 208 lb BMI 35.7 BP 112/70 Blood Pressure Location Lt brachial Position Sitting Pulse 86 Pulse Source Pulse Oximeter Pulse Oximetry (%) 97 Oxygen Delivery Method Room Air Intake Visit Reasons: PE Intake Note: Pt is here today for his PE Allergies cefaclor [From Ceclor] Allergy (Mild, Verified 12/25/23 07:41) Rash sulfamethoxazole [From Bactrim] Allergy (Mild, Verified 12/25/23 07:41) Rash trimethoprim [From Bactrim] Allergy (Mild, Verified 12/25/23 07:41) Rash metformin Adverse Reaction (Intermediate, Verified 12/25/23 07:41) Nausea cillins Allergy (Intermediate, Uncoded 12/25/23 07:41) Anaphylaxis Tobacco use date assessed: 12/25/23 Dental Screening Dental Screen Date: 12/25/23 Did you have a dental visit in the last 12 months?: No Did you have a dental problem in the last 6 months where you did not have access to dental care?: No Was dental information given to patient?: Patient has dentist HPI PE HPI Details Pt is here for a PE. Will order labs. Pt was recently admitted to psych with passive SI and intentional overdose, see notes. Pt is doing better and currently has no SI. Pt is a diabetic, on an ARB and a statin. A1C in office today is 6.5. Microalbumin is up to date. Denies polyuria, polydipsia, and neuropathy. Pt denies any signs and symptoms of hypoglycemia and does know how to correct it. Due for eye exam, will refer. [facility] Medical History (Updated 12/25/23 @ 08:22 by SERGIO Ray) Suicidal ideation Schizo affective schizophrenia Surgical History S/P tonsillectomy S/P panniculectomy Social History Housing: House Patient Tobacco Use Status: Former Tobacco user Cigarettes Per Day: 4 e-Cigarette/Vaping Use: Currently Using Second Hand Smoke Exposure: No service: No Current occupational status: employed Cognitive needs: No Hearing needs: No Vision needs: No Questionnaire PHQ-9 Over the last 2 weeks, how often have you been bothered by any of the following problems? 63579 - PHQ-9 Billing: Patient declined-do not bill Source: Developed by Drs. Ld Miller, Talia Gu, Isaac Hooks and colleagues, with an educational alfonso from [employer]. Thrive Questionnaire Date Thrive assessed: 08/07/23 KATIE-7 AMB Questionnaire KATIE-7 Date KATIE - 7 assessed: 08/07/23 Source: Developed by Drs. Ld Miller, Talia Gu, Isaac Hooks and colleagues, with an educational alfonso from [employer]. KATIE-7 Assessment Billing KATIE-7 Assessment Tool: pt declined-do not bill Review of Systems Const Denies chills and Denies fever(s) Eyes Denies blurry vision ENT Denies vertigo, Denies dizziness and Denies sore throat Card Denies chest pain at rest, Denies chest pain with activity, Denies diaphoresis, Denies dyspnea and Denies dyspnea on exertion Resp Denies cough, Denies dyspnea, Denies dyspnea on exertion and Denies wheezing GI Denies abdominal pain, Denies melena, Denies hematochezia, Denies constipation, Denies diarrhea and Denies loose stools Denies hematuria Musc Denies numbness and Denies tingling Skin/Breast Denies lesions Neuro Denies vertigo, Denies dizziness, Denies numbness and Denies tingling Psych Denies anxiety, Denies depression, Denies homicidal ideation, Denies suicidal ideation and Denies other (substance abuse) Aller/Immun Denies wheezing Physical exam (Primary Care) Vital Signs: Last Vital Signs Pulse 86 12/25/23 07:40 BP 112/70 12/25/23 07:40 Pulse Ox 97 12/25/23 07:40 Oxygen Delivery Method Room Air 12/25/23 07:40 BMI result Body Mass Index 35.7 Tobacco/Smoking Status: Tobacco use Status Tobacco use date assessed 12/25/23 12/25/23 07:54 Patient Tobacco Use Status Former Tobacco user 12/25/23 07:41 e-Cigarette/Vaping Use Currently Using 12/25/23 07:41 Thrive Assessment: Date of Thrive Assessment Date Thrive assessed 08/07/23 12/25/23 07:41 Const General: cooperative Nutritional Appearance: obese Orientation/consciousness: patient oriented x3 HENMT Head: Yes normal to inspection, Yes normocephalic and Yes atraumatic Ears: TM's normal bilaterally Eyes General: appearance normal, both eyes and all related structures Alignment and Position: alignment normal and position normal Neck Neck: Yes normal visual inspection and Yes no lymphadenopathy Thyroid: Thyroid normal Resp Effort & Inspection: normal respiratory effort Auscultation: clear to auscultation bilaterally Cardio Rate: regular rate Rhythm: regular rhythm Heart sounds: S1 normal heart sound present, S2 normal heart sound present and no murmurs GI Palpation (GI): Soft to palpation and nontender Auscultation: normal bowel sounds Male General Exam: Yes normal external exam Penis: normal penis Scrotum: scrotum normal, testes descended bilaterally and no inguinal hernias Testes: no testicular mass Skin Rashes: no rashes Neuro General: patient oriented x3, moves all extremities, no focal motor deficits and deep tendon reflexes 2+ bilaterally Romberg Test: Negative Extrem Other: bilat feet: + sensation with use of monofilament, feet intact Psych Appearance: grossly normal Mental Status: mental status grossly normal Speech and movement: Normal speech and movement present Affect: normal affect Attitude: cooperative Thought process: Normal thought process present Thought content: Normal thought content present Insight: Good insight present (Psych) Judgement: Good judgement present (Psych) Results AMB Hemoglobin A1c AMB Hemoglobin A1c 6.5 % Last Edit by Brittany Christiansen CMA on 12/25/23 08:08 Immunizations pneumoc 20-venkat conj-dip cr(PF) 0.5 mL IM syringe Performing Provider: SERGIO Ray Performing Location: [facility] Administered by: Brittany Christiansen CMA on 12/25/23 08:13 Dose Route Admin Location Dispensed Lot Number Expiration Date NDC [employer] 0.5 mL IM Left Deltoid 0.5 mL [id number] 02/15/25 1244-5520-70 [employer]el[employer] VIS Given Date VIS Provided VIS Publication Date 12/25/23 Single Vaccine 21 Eligibility Eligibility Date Funding Source Not VFC Eligible 12/25/23 Private Results Reviewed Results Reviewed: Laboratory Last Values Hgb A1c (Clinic) 6.5 % (4.0-6.0) H 12/25/23 08:05 Assessment and Plan Assessment & Plan (1) Encounter for routine adult physical exam with abnormal findings: Code(s): Z00.01 - Encounter for general adult medical examination with abnormal findings (2) Diabetes: Code(s): E11.9 - Type 2 diabetes mellitus without complications (3) Suicidal ideation: Code(s): R45.851 - Suicidal ideations Plan: no signs of SI, pt reports doing we Plan The patient agreed to the use of a medical insurance collector for this encounter. Scribed for KRISTAL Summers-BLAKE by Cyndy Olivo medical insurance collector, on 12/25/2023 at 07:55 EST. Orders: Orders Complete Blood Count Auto Diff Today Z00.01 - Encounter for general adult medical examination with abnormal findings Comprehensive [place]. Panel Fast Today Z00.01 - Encounter for general adult medical examination with abnormal findings TSH reflex Free T4 Today Z00.01 - Encounter for general adult medical examination with abnormal findings UA CC w/rflx Micro + Cult Today Z00.01 - Encounter for general adult medical examination with abnormal findings AMB Hemoglobin A1c Today E11.9 - Type 2 diabetes mellitus without complications Lipid Panel Today Z00.01 - Encounter for general adult medical examination with abnormal findings Microalbumin, Random (w Creat) Today Z00.01 - Encounter for general adult medical examination with abnormal findings Referrals Ophthalmology Referral E11.9 - Type 2 diabetes mellitus without complications Coding Level of Care Code Est Pt Level 3 (20255) Complex EM visit Add On G2211 Diagnoses Encounter for routine adult physical exam with abnormal findings Z00.01 Diabetes E11.9 Suicidal ideation R45.851
== END 2023-12-25 08:18 | disposition home or self-care (01) ==
PROVIDERS: PCP Nurse Practitioner Family; Visit Provider Nurse Practitioner Family
DX: Z00.00 Encounter for general adult medical examination without abnormal findings (principal); E11.9 Type 2 diabetes mellitus without complications; R45.851 Suicidal ideations; Z23 Encounter for immunization
CPT/HCPCS: 83036; 90471; 90677; 99395

== ENCOUNTER 2024-03-06 08:03 | Outpatient (AMB) | payer OTHER, SELFPAY ==
[2024-03-06 08:08] VITALS: BP 126/80; PULSE 73; O2SAT 98; BMI 36.6
--- NOTE | 2024-03-06 08:08 | AM.OFFWIN_ITS ---
Intake Vital Signs 03/06/24 08:08 Height 5 ft 4 in Weight 213 lb BMI 36.6 BP 126/80 Blood Pressure Location Lt brachial Position Sitting Pulse 73 Pulse Source Pulse Oximeter Pulse Oximetry (%) 98 Oxygen Delivery Method Room Air Intake Visit Reasons: EP-rt arm lump Intake Note: Patient here lumo on right arm that has been present for some time now and ellis and can be itchy. Patient Tobacco Use Status: Former Tobacco user Allergies cefaclor [From Ceclor] Allergy (Mild, Verified 03/06/24 08:14) Rash sulfamethoxazole [From Bactrim] Allergy (Mild, Verified 03/06/24 08:14) Rash trimethoprim [From Bactrim] Allergy (Mild, Verified 03/06/24 08:14) Rash metformin Adverse Reaction (Intermediate, Verified 03/06/24 08:14) Nausea cillins Allergy (Intermediate, Uncoded 03/06/24 08:14) Anaphylaxis Do you need a note to return to daycare/school/sports/work: No HPI HPI Comments History of Present Illness Details Patient is a 38-year-old male complaining of a hard lump on his right forearm that has been present for 2 weeks. He said he tried to squeeze it several times and have it come to ahead so he could get the fluid out but he has been unable to do that. He states now it is just hard but still is tender. He states he thinks it is an ingrown hair that got infected, he denies any bug bites or fevers. [facility] Medical History (Updated 03/06/24 @ 09:09 by Mallory Kyle PA-C) Suicidal ideation Schizo affective schizophrenia Surgical History S/P tonsillectomy S/P panniculectomy Social History Housing: House Patient Tobacco Use Status: Former Tobacco user Cigarettes Per Day: 4 e-Cigarette/Vaping Use: Currently Using Second Hand Smoke Exposure: No service: No Current occupational status: employed Cognitive needs: No Hearing needs: No Vision needs: No Review of Systems Const All systems reviewed & are unremarkable except as noted in HPI and below Physical Exam Vital Signs: Last Vital Signs Pulse 73 03/06/24 08:08 BP 126/80 03/06/24 08:08 Pulse Ox 98 03/06/24 08:08 Oxygen Delivery Method Room Air 03/06/24 08:08 BMI result Body Mass Index 36.6 Const General: cooperative, healthy appearing, comfortable, no acute distress and well developed Orientation/consciousness: patient oriented x3 Limitations: no limitations Eyes General: appearance normal, both eyes and all related structures Resp Effort & Inspection: normal respiratory effort and able to speak in complete sentences Skin Other: Right forearm has a 1 cm circular raised indurated area of erythema, no purulence noted, no warmth however it is tender to touch Neuro General: patient oriented x3 Assessment & Plan Assessment & Plan (1) Abscess: Code(s): L02.91 - Cutaneous abscess, unspecified Plan: As this abscesses not drainable, we will treat with antibiotics, patient has Bactrim and penicillin allergies so I have sent clindamycin. Plan see above Medications: New clindamycin HCl 450 mg (3 x 150 mg) PO Q8H 15 caps 0RF Coding Level of Care Code Est Pt Level 3 (17376) Diagnoses Abscess L02.91
== END 2024-03-06 09:11 | disposition home or self-care (01) ==
PROVIDERS: PCP Nurse Practitioner Family; Visit Provider Physician Assistant
DX: L02.91 Cutaneous abscess, unspecified (principal)

== ENCOUNTER → 2024-03-06 08:03 | Outpatient (BNVA) | payer OTHER, SELFPAY | PROVIDERS: PCP Nurse Practitioner Family | DX: L02.91 Cutaneous abscess, unspecified (principal) | CPT/HCPCS: 99212 ==

== ENCOUNTER 2024-03-12 08:02 | Outpatient (AMB) | payer OTHER, SELFPAY ==
[2024-03-12 08:03] VITALS: BP 114/76; PULSE 78; TEMP 36.8; O2SAT 98; BMI 37.1
--- NOTE | 2024-03-12 08:03 | AM.OFFWIN_ITS ---
Intake Vital Signs 3 03/12/24 08:03 Height 5 ft 4 in Weight 216 lb BMI 37.1 BP 114/76 Blood Pressure Location Lt brachial Position Sitting Pulse 78 Pulse Source Pulse Oximeter Temp 98.3 F Temp Source Oral Pulse Oximetry (%) 98 Oxygen Delivery Method Room Air Intake Visit Reasons: EP-rt arm lump Intake Note: pt c/o abscess RT forearm. Clindamycin did not clear Patient Tobacco Use Status: Former Tobacco user Allergies cefaclor [From Ceclor] Allergy (Mild, Verified 03/12/24 08:15) Rash sulfamethoxazole [From Bactrim] Allergy (Mild, Verified 03/12/24 08:15) Rash trimethoprim [From Bactrim] Allergy (Mild, Verified 03/12/24 08:15) Rash metformin Adverse Reaction (Intermediate, Verified 03/12/24 08:15) Nausea cillins Allergy (Intermediate, Uncoded 03/12/24 08:15) Anaphylaxis Medication List - Last Reconciled 03/12/24 by Scout Schmid MD aripiprazole 5 mg PO DAILY atorvastatin 10 mg PO BEDTIME 90 days blood sugar diagnostic (FreeStyle Lite Strips) tid testing blood-glucose meter (FreeStyle Lite Meter kit) TID testing empagliflozin 25 mg PO DAILY lamotrigine 50 mg PO DAILY lancets (FreeStyle Lancets) TID testing losartan 25 mg PO DAILY 90 days paliperidone ER 3 mg PO BEDTIME paliperidone palmitate (Invega Sustenna) mg IM potassium chloride ER 20 mEq PO DAILY Do you need a note to return to daycare/school/sports/work: Yes HPI EP-rt arm lump 2 HPI0 Details Patient is a 38-year-old gentleman who has developed an abscess cyst right forearm He was given clindamycin few days ago which did not help him Patient says that he get the cyst frequently at different locations in his body On examination the cyst feels like walled There is mild fluctuation but there is no surrounding erythema Patient does not want me to Suman the cyst He would rather see a surgeon to have it removed completely. I am prescribing doxycycline while he wait to see the surgery Patient tells me that he has taken doxycycline before [facility] Medical History Suicidal ideation Schizo affective schizophrenia Surgical History S/P tonsillectomy S/P panniculectomy Social History Housing: House Patient Tobacco Use Status: Former Tobacco user Cigarettes Per Day: 4 e-Cigarette/Vaping Use: Currently Using Second Hand Smoke Exposure: No service: No Current occupational status: employed Cognitive needs: No Hearing needs: No Vision needs: No Review of Systems Const All systems reviewed & are unremarkable except as noted in HPI and below Physical Exam Vital Signs: Last Vital Signs Temp 98.3 F 03/12/24 08:03 Pulse 78 03/12/24 08:03 BP 114/76 03/12/24 08:03 Pulse Ox 98 03/12/24 08:03 Oxygen Delivery Method Room Air 03/12/24 08:03 BMI result Body Mass Index 37.1 Const General: no acute distress Orientation/consciousness: patient oriented x3 Eyes General: appearance normal, both eyes and all related structures Resp Effort & Inspection: normal respiratory effort and able to speak in complete sentences Neuro General: patient oriented x3 Extrem Elbow/forearm/wrist images: 2 1. lump size of covarrubias, without surrounding erythema, slightly fluctuant in the middle Psych Mental Status: mental status grossly normal Assessment & Plan Assessment & Plan (1) Abscess of forearm: Code(s): L02.419 - Cutaneous abscess of limb, unspecified Plan Patient is a 38-year-old gentleman who has developed an abscess cyst right forearm He was given clindamycin few days ago which did not help him Patient says that he get the cyst frequently at different locations in his body On examination the cyst feels like walled There is mild fluctuation but there is no surrounding erythema Patient does not want me to Suman the cyst He would rather see a surgeon to have it removed completely. I am prescribing doxycycline while he wait to see the surgery Patient tells me that he has taken doxycycline before Orders: Referrals 2 General Surgery Referral L02.419 - Cutaneous abscess of limb, unspecified Medications: New 2 doxycycline hyclate 100 mg PO BID 10 days 20 caps 0RF Coding Level of Care Code Est Pt Level 4 (46961) Diagnoses Abscess of forearm L02.419
== END 2024-03-12 12:05 | disposition home or self-care (01) ==
PROVIDERS: PCP Nurse Practitioner Family; Visit Provider Internal Medicine
DX: L02.419 Cutaneous abscess of limb, unspecified (principal)

== ENCOUNTER → 2024-03-12 08:02 | Outpatient (BNVA) | payer OTHER, SELFPAY | PROVIDERS: PCP Nurse Practitioner Family | DX: L02.415 Cutaneous abscess of right lower limb (principal) | CPT/HCPCS: 99212 ==

== ENCOUNTER 2024-03-19 08:04 | Outpatient (AMB) | payer OTHER, SELFPAY ==
--- NOTE | 2024-03-19 08:05 | MHC.OFFWIV ---
Intake Vital Signs 03/19/24 08:06 Height 5 ft 4 in Weight 215 lb BMI 36.9 BP 128/84 Blood Pressure Location Rt brachial Position Sitting Pulse 81 Pulse Source Pulse Oximeter Pulse Oximetry (%) 98 Oxygen Delivery Method Room Air Intake Visit Reasons: EP-h Intake Note: Patient here for elevated BP which he noticed late last night, Patient Tobacco Use Status: Former Tobacco user Allergies cefaclor [From Ceclor] Allergy (Mild, Verified 03/19/24 08:14) Rash sulfamethoxazole [From Bactrim] Allergy (Mild, Verified 03/19/24 08:14) Rash trimethoprim [From Bactrim] Allergy (Mild, Verified 03/19/24 08:14) Rash metformin Adverse Reaction (Intermediate, Verified 03/19/24 08:14) Nausea cillins Allergy (Intermediate, Uncoded 03/19/24 08:14) Anaphylaxis Do you need a note to return to daycare/school/sports/work: No HPI HPI Comments History of Present Illness Details Patient is a 38-year-old male complaining of an elevated blood pressure yesterday. He states he is not quite sure why he decided to check his blood pressure but he did and it was 148 systolic, he was not sure what the diastolic number was. He states he did eat a little bit more salt the previous day than he normally does. He denies any headaches dizziness lightheadedness or visual changes. He states he was in respite and had 0.1 mg of clonidine which he tells me was prescribed for sleep and anxiety, so when he noticed his blood pressure being that high, he took 3 tablets of clonidine and it did not bring down his blood pressure. [facility] Medical History Suicidal ideation Schizo affective schizophrenia Surgical History S/P tonsillectomy S/P panniculectomy Social History Housing: House Patient Tobacco Use Status: Former Tobacco user Cigarettes Per Day: 4 e-Cigarette/Vaping Use: Currently Using Second Hand Smoke Exposure: No service: No Current occupational status: employed Cognitive needs: No Hearing needs: No Vision needs: No Review of Systems Const All systems reviewed & are unremarkable except as noted in HPI and below Physical Exam Vital Signs: Last Vital Signs Pulse 81 03/19/24 08:06 BP 128/84 03/19/24 08:06 Pulse Ox 98 03/19/24 08:06 Oxygen Delivery Method Room Air 03/19/24 08:06 BMI result Body Mass Index 36.9 Const General: cooperative, healthy appearing, comfortable, no acute distress and well developed Orientation/consciousness: patient oriented x3 Limitations: no limitations HEENT Head: Yes normal to inspection Ears: hearing grossly normal bilaterally General nose exam: Normal external nose present Face and sinus: Yes normal facial exam Eyes General: appearance normal, both eyes and all related structures Neck Neck: Yes normal visual inspection and Yes full ROM Resp Effort & Inspection: normal respiratory effort and able to speak in complete sentences Skin General skin exam: no rashes or lesions noted Neuro General: patient oriented x3 Extrem General: Yes normal to inspection Assessment & Plan Assessment & Plan (1) Elevated blood pressure reading: Code(s): R03.0 - Elevated blood-pressure reading, without diagnosis of hypertension Plan: Today, the patient's blood pressure is within normal limits. Educated patient on limiting his intake of salt. I asked him to keep a log of his blood pressures 2 to 3 times a day over the next few days and he will follow up with his PCP on Sunday. Plan See above Coding Level of Care Code Est Pt Level 3 (12056) Diagnoses Elevated blood pressure reading R03.0
[2024-03-19 08:06] VITALS: BP 128/84; PULSE 81; O2SAT 98; BMI 36.9
== END 2024-03-19 09:15 | disposition home or self-care (01) ==
PROVIDERS: PCP Nurse Practitioner Family; Visit Provider Physician Assistant
DX: R03.0 Elevated blood-pressure reading, without diagnosis of hypertension (principal)

== ENCOUNTER → 2024-03-19 08:04 | Outpatient (BNVA) | payer OTHER, SELFPAY | PROVIDERS: PCP Nurse Practitioner Family | DX: R03.0 Elevated blood-pressure reading, without diagnosis of hypertension (principal) | CPT/HCPCS: 99212 ==

== ENCOUNTER 2024-03-24 10:16 | Outpatient (AMB) | payer OTHER, SELFPAY ==
[2024-03-24 10:19] VITALS: BP 110/70; PULSE 77; O2SAT 97; BMI 37.6
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
== END 2024-03-24 11:31 | disposition home or self-care (01) ==
PROVIDERS: PCP Nurse Practitioner Family; Visit Provider Nurse Practitioner Family
DX: E11.9 Type 2 diabetes mellitus without complications (principal); Z13.9 Encounter for screening, unspecified

== ENCOUNTER → 2024-03-24 10:16 | Outpatient (BNVA) | payer OTHER, SELFPAY | PROVIDERS: PCP Nurse Practitioner Family; Visit Provider Nurse Practitioner Family | DX: E11.9 Type 2 diabetes mellitus without complications (principal) | CPT/HCPCS: 83036; 96127; 99212 ==

== ENCOUNTER 2024-04-30 08:00 | Outpatient (AMB) | payer OTHER, SELFPAY ==
[2024-04-30 08:06] VITALS: BP 130/78; PULSE 82; TEMP 37.4; O2SAT 98; BMI 37.6
--- NOTE | 2024-04-30 08:06 | MHC.OFFWIV ---
Intake Vital Signs 04/30/24 08:06 Height 5 ft 4 in Weight 219 lb BMI 37.6 BP 130/78 Blood Pressure Location Lt brachial Position Sitting Pulse 82 Pulse Source Pulse Oximeter Temp 99.4 F Temp Source Oral Pulse Oximetry (%) 98 Oxygen Delivery Method Room Air Intake Visit Reasons: EP Sore throat, cough, fever Intake Note: Pt is here for sore throat and cough and fever Patient Tobacco Use Status: Former Tobacco user Allergies cefaclor [From Ceclor] Allergy (Mild, Verified 04/30/24 08:06) Rash sulfamethoxazole [From Bactrim] Allergy (Mild, Verified 04/30/24 08:06) Rash trimethoprim [From Bactrim] Allergy (Mild, Verified 04/30/24 08:06) Rash metformin Adverse Reaction (Intermediate, Verified 04/30/24 08:06) Nausea cillins Allergy (Intermediate, Uncoded 03/19/24 08:14) Anaphylaxis Do you need a note to return to daycare/school/sports/work: No HPI EP Sore throat, cough, fever HPI Details This note is constructed using voice recognition software. While every effort has been made to ensure accuracy, shells inspector errors may have been included. The patient is a 38 year old male who presents to the clinic today with cough, sore throat, fever, body aches since Sunday. He states that he had mild symptoms on Sunday, but they worsened done Sunday with a temperature of 100.5 degrees. He has been taking Tylenol and Motrin around the clock to help with his symptoms. The symptoms are staying about the same, not improving. He denies dyspnea. [facility] Medical History Suicidal ideation Schizo affective schizophrenia Surgical History S/P tonsillectomy S/P panniculectomy Social History Housing: House Patient Tobacco Use Status: Former Tobacco user Cigarettes Per Day: 4 e-Cigarette/Vaping Use: Currently Using Second Hand Smoke Exposure: No service: No Current occupational status: employed Cognitive needs: No Hearing needs: No Vision needs: No Review of Systems Const All systems reviewed & are unremarkable except as noted in HPI and below Physical Exam Vital Signs: Last Vital Signs Temp 99.4 F 04/30/24 08:06 Pulse 82 04/30/24 08:06 BP 130/78 04/30/24 08:06 Pulse Ox 98 04/30/24 08:06 Oxygen Delivery Method Room Air 04/30/24 08:06 BMI result Body Mass Index 37.6 Const General: cooperative, healthy appearing, comfortable and no acute distress Orientation/consciousness: patient oriented x3 Limitations: no limitations HEENT Head: Yes normal to inspection Ears: hearing grossly normal bilaterally, external ears normal, TM normal on the left and TM abnormal bulging on the right and erythematous on the right General nose exam: Normal external nose present, Normal nares present and No nasal discharge present Face and sinus: Yes normal facial exam and Yes sinuses nontender Mouth: Normal oral and palatal mucosa present and moist mucous membranes Throat: Yes tonsils normal, Yes uvula midline and Yes posterior oropharynx abnormal (Erythema) Eyes General: appearance normal, both eyes and all related structures Neck Neck: Yes normal visual inspection Resp Effort & Inspection: normal respiratory effort, able to speak in complete sentences, Actively coughing, no respiratory distress, not tachypneic, no tripod positioning and no use of accessory muscles Auscultation: clear to auscultation bilaterally Cardio Jugular venous distension: no JVD Rate: regular rate Rhythm: regular rhythm Heart sounds: S1 normal heart sound present, S2 normal heart sound present, no click, no gallops, no murmurs and no rubs Skin General skin exam: no rashes or lesions noted, elasticity normal and turgor normal Neuro General: patient oriented x3 Extrem General: Yes normal to inspection and Yes no clubbing, cyanosis or edema Assessment & Plan Assessment & Plan (1) Otitis media: Code(s): H66.90 - Otitis media, unspecified, unspecified ear Qualifiers: Otitis media type: suppurative Chronicity: acute Laterality: right Recurrence: non-recurrent Spontaneous tympanic membrane rupture: without spontaneous rupture Qualified Code(s): H66.001 - Acute suppurative otitis media without spontaneous rupture of ear drum, right ear Plan: Supportive measures encouraged and reviewed. Antibiotic sent to requested pharmacy, advised patient to take antibiotics until completed and not to stop if feeling better, unless the patient has side effects. Advised patient to follow up with primary care provider with worsening or failure to resolve. (2) URI (upper respiratory infection): Code(s): J06.9 - Acute upper respiratory infection, unspecified Qualifiers: URI type: unspecified URI Qualified Code(s): J06.9 - Acute upper respiratory infection, unspecified Plan: Likely leading to otitis media. Viral swab obtained to rule out Covid based on symptoms. Advised mask wearing while symptomatic and quarantine per current CDC guidelines. Reviewed at home support methods including hydration, humidification, vix vapor rub, sinus rinse. Advised to consider Mucinex for symptomatic management. Advised follow up with worsening symptoms such as dyspnea at rest, which would require emergent evaluation. Plan See above for full details and plan. Orders: Orders SARS-CoV2/FLU/RSV Today J06.9 - Acute upper respiratory infection, unspecified Medications: New doxycycline hyclate 100 mg PO BID 10 days 20 caps 0RF Coding Level of Care Code Est Pt Level 3 (41323) Diagnoses Non-recurrent acute suppurative otitis media of right ear without spontaneous rupture of tympanic membrane H66.001 Otitis media type: suppurative Chronicity: acute Laterality: right Recurrence: non-recurrent Spontaneous tympanic membrane rupture: without spontaneous rupture Upper respiratory tract infection, unspecified type J06.9 URI type: unspecified URI
== END 2024-04-30 08:24 | disposition home or self-care (01) ==
PROVIDERS: PCP Nurse Practitioner Family; Visit Provider Registered Nurse
DX: H66.001 Acute suppurative otitis media without spontaneous rupture of ear drum, right ear (principal); J06.9 Acute upper respiratory infection, unspecified

== ENCOUNTER 2024-04-30 08:00 | Outpatient (REF) | payer OTHER, SELFPAY ==
[2024-04-30 12:43] LABS: Influenza A PCR NEGATIVE (Negative); Influenza B PCR NEGATIVE (Negative); Resp Syncy Virus RNA Qual PCR NEGATIVE (Negative); SARS COV2 PCR INHOUSE NEGATIVE (Negative)
== END 2024-04-30 08:01 | disposition home or self-care (01) ==
LOC: HO.LNP 08:00
PROVIDERS: PCP Nurse Practitioner Family; Visit Provider Registered Nurse
DX: J06.9 Acute upper respiratory infection, unspecified (principal); H66.001 Acute suppurative otitis media without spontaneous rupture of ear drum, right ear
CPT/HCPCS: 0241U; 99212

== ENCOUNTER 2024-05-21 07:44 | Outpatient (REF) | payer OTHER, SELFPAY ==
[2024-05-24 21:14] LABS: TS Negative Control Passed; TS Panel A 2; TS Panel B 1; TS Positive Control Passed; TSpotTB Negative (Negative)
== END 2024-05-21 07:45 | disposition home or self-care (01) ==
LOC: HO.HMGCLDS 07:44
PROVIDERS: PCP Nurse Practitioner Family; Visit Provider Nurse Practitioner Family
DX: Z11.1 Encounter for screening for respiratory tuberculosis (principal)
CPT/HCPCS: 36415; 86481

== ENCOUNTER 2024-06-12 08:02 | Outpatient (AMB) | payer OTHER, SELFPAY ==
--- NOTE | 2024-06-12 08:10 | MHC.OFFWIV ---
Intake Vital Signs 06/12/24 08:11 Weight 220 lb BP 110/72 Blood Pressure Location Lt brachial Position Sitting Pulse 81 Pulse Source Pulse Oximeter Temp 98.4 F Temp Source Oral Pulse Oximetry (%) 95 Oxygen Delivery Method Room Air Intake Visit Reasons: EP-rt upper abd pain Intake Note: Patient here for upper right quad pain that started earlier this week. Denies any nausea, vomiting or diarrhea. Patient Tobacco Use Status: Former Tobacco user Allergies cefaclor [From Ceclor] Allergy (Mild, Verified 06/12/24 08:24) Rash sulfamethoxazole [From Bactrim] Allergy (Mild, Verified 06/12/24 08:24) Rash trimethoprim [From Bactrim] Allergy (Mild, Verified 06/12/24 08:24) Rash metformin Adverse Reaction (Intermediate, Verified 06/12/24 08:24) Nausea cillins Allergy (Intermediate, Uncoded 06/12/24 08:24) Anaphylaxis Do you need a note to return to daycare/school/sports/work: Yes HPI HPI Comments History of Present Illness Details History of Present Illness - The patient is a 38-year-old male presenting with abdominal pain and discomfort. - Initial abdominal discomfort began weeks ago, worsening significantly two days prior to this consultation. - Postprandial exacerbation is noted by the patient. - With a history of an eating disorder, these symptoms may be intertwined with his longstanding condition. - He has been breathing shallowly to minimize discomfort, with an accompanying drop in oxygen saturation, previously noted at 95%. - Additional symptoms include transient chills but absent fever, nausea, vomiting, or diarrhea. - Attempts to alleviate the pain with ibuprofen have shown some success. Physical Exam General: Cooperative, healthy appearing, comfortable, no acute distress and well developed Orientation: Patient oriented x3 Limitations: No limitations Head: Normal to inspection Ears: Hearing grossly normal bilaterally Nose: Normal external nose present Face and sinus: Normal facial exam Eyes: Appearance normal, both eyes and all related structures Neck: Normal visual inspection and Yes full ROM Respiratory: Shallow breathing due to pain, able to speak in complete sentences. GI: RUQ TTP, + Toro's, otherwise unremarkable Skin: No rashes or lesions noted Neuro: Patient oriented x3 Extremities: Normal to inspection [facility] Medical History Suicidal ideation Schizo affective schizophrenia Surgical History S/P tonsillectomy S/P panniculectomy Social History Housing: House Patient Tobacco Use Status: Former Tobacco user Cigarettes Per Day: 4 e-Cigarette/Vaping Use: Currently Using Second Hand Smoke Exposure: No service: No Current occupational status: employed Cognitive needs: No Hearing needs: No Vision needs: No Review of Systems Const All systems reviewed & are unremarkable except as noted in HPI and below Physical Exam Vital Signs: Last Vital Signs Temp 98.4 F 06/12/24 08:11 Pulse 81 06/12/24 08:11 BP 110/72 06/12/24 08:11 Pulse Ox 94 06/12/24 08:11 Oxygen Delivery Method Room Air 06/12/24 08:11 Assessment & Plan Assessment & Plan (1) Postprandial RUQ pain: Code(s): R10.11 - Right upper quadrant pain Plan: The clinical presentation aligns with a likely gallbladder pathology, requiring diagnostic imaging via ultrasound to confirm the suspicion of cholecystitis or other gallbladder disease. Upon confirmation, treatment may range from antibiotics to surgical intervention, depending on severity. Coordination with [facility] for expedited care is planned. The patient's use of ibuprofen is discouraged until further evaluation is completed to avoid adverse kidney impacts. Patient was informed and verbally consented to the use of an ambient scribe for clinic note documentation during this visit. Coding Level of Care Code Est Pt Level 5 (78104) Diagnoses Postprandial RUQ pain R10.11
[2024-06-12 08:11] VITALS: BP 110/72; PULSE 81; TEMP 36.9; O2SAT 95
== END 2024-06-12 08:51 | disposition home or self-care (01) ==
PROVIDERS: PCP Nurse Practitioner Family; Visit Provider Physician Assistant
DX: R10.11 Right upper quadrant pain (principal)

== ENCOUNTER → 2024-06-12 08:02 | Outpatient (BNVA) | payer OTHER, SELFPAY | PROVIDERS: PCP Nurse Practitioner Family; Visit Provider Physician Assistant | DX: R10.11 Right upper quadrant pain (principal) | CPT/HCPCS: 99212 ==

== ENCOUNTER 2024-08-02 06:41 | Outpatient (REF) | payer OTHER, SELFPAY ==
[2024-08-02 11:20] LABS: MANUAL DIFF FLAG NO
[2024-08-02 11:30] LABS: Basophils Absolute Auto 0.1 X10*3/uL (0.0-0.2); Eosinophils Absolute Auto 0.2 X10*3/uL (0.0-0.4); Eosinophils Percent Auto 2.1 % (0-4); Hematocrit 51.1 % (42.0-52.0); Hemoglobin 18.2 g/dl (14.0-18.0); Imm Gran Pct Auto 4.8 % (0.0-0.4); Lymphocytes Absolute Auto 3.6 X10*3/uL (1.2-4.9); Lymphocytes Percent Auto 34.3 % (20-40); Mean Corpuscular HGB Conc 35.6 g/dl (31.0-36.0); Mean Corpuscular Hemoglobin 30.9 pg (27.0-33.0); Mean Corpuscular Volume 86.8 fL (80.0-98.0); Mean Platelet Volume 9.9 fL (9.4-12.4); Monocytes Absolute Auto 0.6 X10*3/uL (0.1-1.2); Monocytes Percent Auto 6.1 % (2-11); Neutrophils Absolute Auto 5.4 x10*3/uL (2.0-8.3); Neutrophils Percent Auto 51.7 % (45-73); Platelet Count 296 X10*3/uL (160-400); Red Blood Count 5.89 X10*6/uL (4.60-5.80); Red Cell Distribution Width 12.5 % (11.0-16.0); White Blood Count 10.5 X10*3/uL (4.8-10.8)
[2024-08-02 11:39] LABS: Appearance Urine Clear; Color Urine Yellow; Glucose Urine UA >=1000 mg/dL (Negative); Leukocyte Esterase Urine Negative (Negative); Nitrite Urine Negative (Negative); PH 5.5 (5.0-9.0); Specific Gravity - Urine >= 1.030 (1.005-1.025); UMIC TRIGGER UACC YES; Urine Blood Negative (Negative); Urine Ketones Negative (Negative); Urine Protein Negative (Neg-Trace)
[2024-08-02 11:46] LABS: Bacteria Urine None Seen (None Seen); Hyaline Casts Urine 0-2 /LPF (0-2); RBC Urine 0-2 /HPF (0-2); Squamous Epithelial Cell Urine 0-2 /HPF (0-2); WBC Urine 0-5 /HPF (0-5)
[2024-08-02 11:52] LABS: Alanine Aminotransferase 69 U/L (0-40); Albumin Level 4.5 g/dL (3.5-5.0); Alkaline Phosphatase 84 U/L (39-117); Anion Gap 16 (12-20); Aspartate Amino Transferase 38 U/L (5-37); Bilirubin Total 0.5 mg/dL (0.0-1.0); Blood Urea Nitrogen 13 mg/dL (9-16); Calcium 9.4 mg/dL (8.4-10.2); Carbon Dioxide 18 mmol/L (22-29); Chloride 111 mmol/L (96-108); Cholesterol 173 mg/dL (<200); Estimated Glomerular Filt Rate > 60; Glucose Fasting 198 mg/dL (60-99); HDL Cholesterol 34 mg/dL (>40); LDL Cholesterol Calculated 92 mg/dL (<100); Potassium 4.2 mmol/L (3.3-5.1); Sodium 141 mmol/L (135-145); Total Protein 7.5 g/dL (6.5-8.0); Triglycerides 237 mg/dL (<150)
[2024-08-02 12:00] LABS: Creatinine Urine 83.41 mg/dL; Microalbum/Creatinine Ratio Ur 11.9 ug/mg cr (<30)
== END 2024-08-02 06:42 | disposition home or self-care (01) ==
LOC: HO.HMGCLDS 06:41
PROVIDERS: PCP Nurse Practitioner Family; Visit Provider Nurse Practitioner Family
DX: E11.9 Type 2 diabetes mellitus without complications (principal)
CPT/HCPCS: 36415; 80053; 80061; 81001; 82043; 82570; 84443; 85025

== ENCOUNTER 2024-08-04 13:52 | Outpatient (AMB) | payer OTHER, SELFPAY ==
--- OUTSIDE RECORDS SUMMARY | 2024-08-04 13:55 | XMS_ITS | Data Portability ---
Author Organization [facility], , [facility] Address [address] [place] [address] Assessment Encounter Date Assessment Date Assessment LastModified by Organization Details LastModified Time 02/25/2021 02/25/2021 Same day prep time start: 1236 Same day prep time end: 1251 total 15 Same day prep time start: 1522 Same day prep time end: 1533 total 11 Visit start time: 1533 Visit end time: 1554 total 21 Same day documentation start: 1702 Same day documentation end: 1713 total 11 My total time spent today documenting and providing coordinated care for this patient is 58 minutes. I have reviewed, collected, and updated relevant history and performed a physical exam. I have coordinated care with IBH, Nutrition, Specialist and or family members I have reviewed labs, x-rays and/or specialty notes Below is my assessment and plan for this patient? s care today. [email or web address] Not available 02/25/2021 17:13:12 Plan of Treatment Reminders Order Date Submit Date Provider Last Modified By Organization Details Last Modified Time Details Appointments None recorded. Lab None recorded. Referral dermatolog ist referral - Worsening Hydradenit is despite systemic antibiotic s 2020 021 RENAE Crooks MD, [address] [place] [address] Rd, Professional [address], [place], [address], 14:31:16 Procedures None recorded. Surgeries None recorded. Imaging None recorded. Medication Orders cyclobenza grzegorz 10 mg tablet 2020 021 [email or web address] [facility]/Pharmacy #[id number], [address] [facility] [place], [address], 1 10:50:58 cyclobenza grzegorz 10 mg tablet 2020 021 [facility]/Pharmacy #[id number], [address] [facility] [place], [address], 12:00:33 clindamyci n 1 % topical gel 2020 021 [email or web address] [facility]/Pharmacy #[id number], [address] [facility] [place], [address], 1 12:00:50 clindamyci n HCl 300 mg capsule 2020 021 [facility]/Pharmacy #[id number], [address] [facility] [place], [address], 15:53:19 rifampin 300 mg capsule 2020 021 [facility]/Pharmacy #[id number], [address] [place], [address], 15:53:19 doxycyclin e hyclate 100 mg capsule 2020 021 [email or web address] [facility]/Pharmacy #[id number], [address] [place], [address], 10:20:49 Patient TargetsNo targets recorded. Patient Instructions Encounter Date Encounter Id Patient Instructions Last Modified By Organization Details Last Modified Time 02/02/2021 [id number] Counseling done {{Patient not ready to quit Contemplatin g quitting Tapering Cigarettes signed up for support prescript ion for stop smoking medication given}} {{Patient not ready to quit Contemplatin g quitting Tapering Cigarettes signed up for support prescript ion for stop smoking medication given}} Goal for follow up visit {{adding exercise regular meals stress management improv ing sleep therapist identifying sponsor}} {{adding exercise regular meals stress management improv ing sleep therapist identifying sponsor}} {{adding exercise regular meals stress management improv ing sleep therapist identifying sponsor}}My Inspirotec To Do List {{go to [employer] [email or web address] or call si gn up for robbie text 2 quit or other stop smoking robbie contact [email or web address]}} {{go to [employer] or call si gn up for robbie text 2 quit or other stop smoking robbie contact [email or web address]}} {{go to [employer] or call si gn up for robbie text 2 quit or other stop smoking robbie contact [email or web address]}} Not available 02/02/2021 07:46:45 02/21/2021 [id number] deciding about using medicines to quit smoking [email or web address] Not available 02/21/2021 10:41:08 Quitting Tobacco : Care Instructions [email or web address] Not available 02/21/2021 10:41:08 The care for thi s patient today involved the following: I have reviewed, collected, and updated relevant history and performed a physical exam. An independent historian was used to obtain history . My assessment of Social Determinants of health: . At risk due to . My care of this patient involved: straightforward l ow Assessment of problems. Review of data straightforward l ow Complexity of risk from disease or treatments Below is my assessment and plan for this patient? s care today. [email or web address] Not available 02/21/2021 10:44:02 Counseling done {{Patient not ready to quit Contemplatin g quitting Tapering Cigarettes signed up for support prescript ion for stop smoking medication given}} {{Patient not ready to quit Contemplatin g quitting Tapering Cigarettes signed up for support prescript ion for stop smoking medication given}} Goal for follow up visit {{adding exercise regular meals stress management improv ing sleep therapist identifying sponsor}} {{adding exercise regular meals stress management improv ing sleep therapist identifying sponsor}} {{adding exercise regular meals stress management improv ing sleep therapist identifying sponsor}}My Health To Do List {{go to [employer] or call si gn up for robbie text 2 quit or other stop smoking robbie contact [email or web address]}} {{go to [employer] or call si gn up for robbie text 2 quit or other stop smoking robbie contact [email or web address]}} {{go to [employer] or call si gn up for robbie text 2 quit or other stop smoking robbie contact [email or web address]}} [email or web address] Not available 02/21/2021 10:21:19 03/10/2021 [id number] Counseling done {{Patient not ready to quit Contemplatin g quitting Tapering Cigarettes signed up for support prescript ion for stop smoking medication given}} {{Patient not ready to quit Contemplatin g quitting Tapering Cigarettes signed up for support prescript ion for stop smoking medication given}} Goal for follow up visit {{adding exercise regular meals stress management improv ing sleep therapist identifying sponsor}} {{adding exercise regular meals stress management improv ing sleep therapist identifying sponsor}} {{adding exercise regular meals stress management improv ing sleep therapist identifying sponsor}}My Health To Do List {{go to [employer] or call si gn up for robbie text 2 quit or other stop smoking robbie contact [email or web address]}} {{go to [employer] or call si gn up for robbie text 2 quit or other stop smoking robbie contact [email or web address]}} {{go to [employer] or call si gn up for robbie text 2 quit or other stop smoking robbie contact [email or web address]}} [email or web address] Not available 03/10/2021 11:49:27 03/17/2021 [id number] healthy upper back: exercises [email or web address] Not available 03/17/2021 10:56:10 Reason for Referral 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 Tripper Referral for H idradenitis suppurativa Worsening Hydradenitis despite systemic antibiotics Referring Physician: Raj Blair, Family Medicine, Encounter Date: 02/25/2021 Problems Name Problem SNOMED Code Status Onset Date Resolution Date Notes Provider Name and Address Organization Details Recorded Time Diabetes mellitus 03542876 Completed 201503/28/2019 Ruth Ann young [facility] 9 08:55:51 Schizoaf fective disorder 71893443 Active 2016 Stiven Whitley PA-C [address] [place] [address], , [facility] 7 16:26:06 Tobacco user 415704061 Completed 201710/14/2018 Betsy Mcneal NP [address] [place] [address], , [facility] 9 16:06:19 Benign essentia l hyperten brittnee 1968375 Completed 201703/01/2018 Sohail Hassan Jr. MD [address] [place] [address], , [facility] 8 12:40:48 Proteinu juna 63802535 Active 2017 Stiven Whitley PA-C [address] [place] [address], , [facility] 8 15:32:45 Renal disorder due to type 2 diabetes mellitus 457698799 Completed 201803/28/2019 Mable Alcantara MD [address] [place] [address], , [facility] 9 09:28:03 Cigarett e smoker 62492074 Active 2018 Betsy Mcneal NP [address] [place] [address], , [facility] 9 16:06:12 Diabetes mellitus 13017551 Active 2018 [facility] 08:55:51 Uncontro lled type 2 diabetes mellitus 682718835 Active 2020 Jacqui Vega PA-C [address] [place] [address], , [facility] 1 08:06:43 Hidraden itis suppurat fede 02696973 Active 2020 RAJ Carrillo MD [address] [place] [address], , [facility] 1 12:41:15 Morbid obesity 419356663 Active 2021 BMI > or = 35 plus diagnosi s of diabetes . PETRA Hussein, [facility] 2 08:00:44 Headache 80307869 Completed 200006/22/2016 Stiven Whitley PA-C [address] [place] [address], [phone] , [facility] 7 09:04:03 Obesity 549375592 Completed 03/28/2022 PETRA Hussein, [facility] 2 08:00:13 Major depressi on, melancho lic type 954218325 Completed 05/11/2019 Mable Alcantara MD [address] [place] [address], [phone] , [facility] 9 13:43:57 Neck pain 35246461 Completed 199905/07/2013 Not Available [facility] 3 02:00:34 Disorder of upper respirat ory system 232211547 Completed 200005/07/2013 Not Available [facility] 3 02:03:48 Problem Notes None recorded. Procedures Surgical History Date Name Laterality Status Provider Name and Address Organization Details Recorded Time 01/01/20 21 Smoking cessation counseling completed Silvia Macdonald [facility] 12/31/2020 14:26:25 01/01/20 21 Smoking cessation counseling cancelled Silvia Macdonald [facility] 12/31/2020 13:30:30 01/01/20 21 Carbon Monoxide Testing cancelled Silvia Macdonald [facility] 12/31/2020 13:30:30 02/10/20 20 24856: Therapeutic Exercise cancelled Jerrell Mar PT [address] [place], [address], [facility] 02/10/2020 14:31:26 02/03/20 20 55397: Therapeutic Exercise completed Jerrell Mar PT [address] [place], [address], [facility] 02/04/2020 15:39:51 01/27/20 20 Physical Activity Counselling completed Jerrell Mar, PT [address] [place], [address], [facility] 01/27/2020 14:08:37 01/27/20 20 33346: PT Eval, Moderate Complexity completed Jerrell Mar, PT [address] [place], [address], [facility] 01/27/2020 14:08:40 01/21/20 20 Smoking cessation counseling completed Leslie Turk [facility] 01/21/2020 13:49:26 09/02/19 20 Smoking cessation counseling completed Sohail Hassan Jr. MD [address] [place] [address], [phone], [facility] 09/03/2019 05:17:21 02/08/20 19 Smoking cessation counseling completed Sohail Hassan Jr. MD [address] [place] [address], [phone], [facility] 02/09/2019 09:55:50 02/01/20 19 Smoking cessation counseling completed Lelia Young MD [address] [place] [address], [phone], [facility] 01/31/2019 13:03:40 02/01/20 19 Carbon Monoxide Testing completed Lelia Young MD [address] [place], [address], [facility] 01/31/2019 13:03:40 02/01/20 19 POC HA1C completed TRAVIS Gutierrez [facility] 01/31/2019 13:01:08 10/15/19 19 Smoking cessation counseling completed Aliza Bhat [facility] 10/14/2018 14:43:25 09/10/19 19 Smoking cessation counseling completed Zakiya Lane LPN [facility] 09/09/2018 12:54:43 07/08/19 19 Smoking cessation counseling completed Sohail Hassan Jr. MD [address] [place] [address], [phone], [facility] 07/09/2018 05:06:04 03/01/20 18 Smoking cessation counseling completed Elaine Quinonez MA [facility] 03/01/2018 09:10:24 03/01/20 18 Carbon Monoxide Testing completed Elaine Quinonez MA [facility] 03/01/2018 09:10:25 03/01/20 18 Diabetic Retinal Exam completed Roslyn Aguirre LPN [facility] 03/04/2018 09:58:19 02/07/20 18 Smoking cessation counseling completed Shantell Mariscal MA [facility] 02/06/2018 12:59:57 02/07/20 18 Carbon Monoxide Testing completed Shantell Mariscal MA [facility] 02/06/2018 12:59:57 12/04/19 18 Smoking cessation counseling completed Talia Watts MA [facility] 12/03/2017 15:44:21 12/04/19 18 Carbon Monoxide Testing completed Talia Watts MA [facility] 12/03/2017 15:44:21 11/07/19 18 Smoking cessation counseling completed HEAVENLY Soto [address] [place] [address], [phone], [facility] 11/06/2017 12:57:34 11/07/19 18 Carbon Monoxide Testing completed HEAVENLY Soto [address] [place] [address], [phone], [facility] 11/06/2017 12:57:34 09/14/19 18 Smoking cessation counseling completed Talia Watts MA [facility] 09/13/2017 11:06:55 09/14/19 18 Carbon Monoxide Testing completed Talia Watts MA [facility] 09/13/2017 11:06:55 09/14/19 18 POC Urinalysis Testing completed Talia Watts MA [facility] 09/13/2017 11:08:30 07/27/19 18 Smoking cessation counseling completed Prabha Son LPN [facility] 07/27/2017 08:45:12 07/27/19 18 Carbon Monoxide Testing completed Prabha Son LPN [facility] 07/27/2017 08:45:12 04/03/20 17 Smoking cessation counseling completed TRAVIS Romo [facility] 04/03/2017 14:59:49 04/03/20 17 Carbon Monoxide Testing completed Darrion BarrettkelTRAVIS gamboa [facility] 04/03/2017 14:59:49 03/08/20 17 Smoking cessation counseling completed Saritha Garnetttron [facility] 03/08/2017 15:51:38 03/08/20 17 Carbon Monoxide Testing completed Saritha Kruse [facility] 03/08/2017 15:51:38 09/12/19 17 Smoking cessation counseling completed Talia Watts MA [facility] 09/11/2016 08:59:57 09/12/19 17 Carbon Monoxide Testing completed Talia Watts MA [facility] 09/11/2016 09:06:03 08/02/19 17 Smoking cessation counseling completed Talia Watts MA [facility] 08/02/2016 13:49:57 08/02/19 17 Carbon Monoxide Testing completed Talia Watts MA [facility] 08/02/2016 14:02:46 06/22/19 17 Smoking cessation counseling completed Talia Watts MA [facility] 06/22/2016 08:55:11 06/22/19 17 Carbon Monoxide Testing completed Talia Watts MA [facility] 06/22/2016 08:58:07 05/03/20 16 Smoking cessation counseling completed Stiven Whitley PA-C [address] [place] [address], [address], [facility] 05/03/2016 09:56:53 02/08/20 16 Smoking cessation counseling completed Jurgen Whitehead LPN [facility] 02/08/2016 14:45:40 02/08/20 16 Carbon Monoxide Testing completed Jurgen Whitehead LPN [facility] 02/08/2016 14:58:52 07/23/19 15 Smoking cessation counseling completed Talia Watts MA [facility] 07/23/2014 11:08:07 05/14/20 13 Smoking cessation counseling completed Lory Arreguin MA [facility] 05/14/2013 09:21:01 08/13/19 13 Smoking cessation counseling completed Sukumar Chavez [facility] 08/13/2012 09:18:46 02/15/20 12 Smoking cessation counseling completed Chidi Mcallister MD [address] [place], [address], [facility] 02/15/2012 11:52:15 06/13/20 11 Smoking cessation counseling completed Karly Cobos [facility] 06/13/2011 14:04:49 02/04/20 11 vasectomy/Esric k completed Mabel Mckenna [facility] 02/03/2011 15:00:52 Imaging Results None recorded. Procedure Notes None recorded. Medical Equipment None Reported. Allergies Allergen ID Allergen Name Allergen Category Reaction Reaction Severity Criticality Documentation Date Start Date Code Code System Note Provider Name and Address Organization Details Recorded Time 060913 risperido ne medicatio n Not available Not available Not available 05/14/2013 17335 RxNorm ?seiz ure activ ity 04/30 Stiven Whitley PA-C [address] [place], [address], [facility] 3 09:35:56 85316 Product containin g penicilli n (product) medicatio n anaphylax is Not available Not available 05/25/2009 90717 8001 SNOMED Not Available [facility] 1 06:05:20 08829 amoxicill in medicatio n anaphylax is Not available Not available 05/25/2009 723 RxNorm Not Available [facility] 1 06:05:20 200253 Ceclor medicatio n Not available Not available Not available 05/03/2016 25663 5 RxNorm TRAVIS Romo, [facility] 6 09:37:43 08295 Bactrim medicatio n rash Not available Not available 02/08/2011 05780 9 RxNorm Not Available [facility] 1 06:05:41 Medications Name Sig Start Date Stop Date Status Note LastModified by Organization Details LastModified Time olanzapin e 10 mg tabs active Not Available Not Available Not Available azithromy junito 250 mg tabs active Not Available Not Available Not Available sf 5000 plus 1.1 % crea active Not Available Not Available Not Available oxycodone /acetamin ophen 5-325 mg tabs active Not Available Not Available Not Available diclofena c sodium dr 75 mg tbec active Not Available Not Available Not Available clindamyc in hcl 150 mg caps active Not Available Not Available Not Available hydroxyzi ne hcl 25 mg tabs active Not Available Not Available Not Available cyclobenz aprine 10 mg tablet TAKE 1 TABLET BY MOUTH THREE TIMES A DAY NEEDED FOR 7 DAYS active Not Available Not Available No t Available metformin 500 mg tablet TAKE 2 TABLETS BY MOUTH TWICE A DAY 12/31 completed 2 tablets once per day 01/21/20 * 1=not taking. Pt reports he gets stomach upset and diarrhea . Not Available Not Available Not Available hydrocodo ne 7.5 mg-ibupro fen 200 mg tablet take 1 tablet by mouth four times a day if needed for pain 02/07 completed Not Available Not Available Not Available doxycycli ne hyclate 100 mg capsule TAKE 1 CAPSULE BY MOUTH TWICE A DAY FOR 7 DAYS 02/21 completed Not Available Not Available Not Available clindamyc in HCl 300 mg capsule TAKE 1 CAPSULE BY MOUTH TWICE A DAY active Not Available Not Available No t Available trazodone 50 mg tablet take 1 tablet by mouth at bedtime if needed for insomnia 08/02 completed Not Available Not Available Not Available clarithro mycin 250 mg tablet Take 1 tablet every 12 hours by oral route for 7 days. 09/13 completed Not Available Not Available Not Available Risperdal 1 mg tablet Take 1 tablet twice a day by oral route. 2013 active Is waiting for a call from [facility] for an intake appt. Last PHA 06/19 Not Available Not Available Not Available ibuprofen 800 mg tablet TAKE 1 TABLET BY MOUTH 3 TO 4 TIMES A DAY 12/30 completed Not Available Not Available Not Available tramadol 37.5 mg-acetam inophen 325 mg tablet Take 1 tablet every 4 hours by oral route as needed. 06/06 completed Not Available Not Available Not Available Risperdal 2 mg tablet Take 1 tablet twice a day by oral route. 2013 active LAST PHA 06/19/13 LABS 09/26/13 Not Available Not Available Not Available benzonata te 200 mg capsule Take 1 capsule 3 times a day by oral route as needed. 08/02 completed Not Available Not Available Not Available clarithro mycin 500 mg tablet take 1 tablet by mouth every 12 hours for 10 days 12/03 completed Not Available Not Available Not Available FreeStyle Lancets 28 gauge active Not Available Not Available Not Available sertralin e 100 mg tablet Take 1 tablet every day by oral route. 2013 active LAST PHA 06/19/13 LABS 09/26/13 Not Available Not Available Not Available olanzapin e 5 mg tablet take 1 tablet by mouth once daily 02/07 completed Not Available Not Available Not Available Zithromax Z-Erich 250 mg tablet Take 2 tablets (500 mg) by oral route once daily for 1 day then 1 tablet (250 mg) by oral route once daily for 4 days 10/14 completed Not Available Not Available Not Available Lantus U-100 Insulin 100 unit/mL subcutane ous solution INJECT 15 UNITS SUBCUTAN EOUSLY EVERY MORNING 2020 active Not Available Not Available Not Avai lable clindamyc in HCl 150 mg capsule TAKE 2 CAPSULES 4 TIMES A DAY 01/07 completed Not Available Not Available Not Available olanzapin e 10 mg tablet take 1 tablet by mouth once daily active Not Available Not Available No t Available hydroxyzi ne HCl 50 mg tablet take 1 tablet by mouth three times a day active Not Available Not Available No t Available Nicotrol 10 mg inhalatio n cartridge INHALE DIRECTED 11/29 completed Not Available Not Available Not Available tramadol 50 mg tablet Take 1 tablet every 6 hours by oral route as needed. 06/06 completed Not Available Not Available Not Available acetamino phen ER 650 mg tablet,ex tended release TAKE 1 TABLET BY MOUTH EVERY 6 8 HOURS NEEDED PAIN MAX 4 TABLETS PER DAY 12/30 completed Not Available Not Available Not Available K-Efferve scent 25 mEq tablet take 1 tablet by mouth once daily active Not Available Not Available No t Available oxycodone -acetamin ophen 5 mg-325 mg tablet TAKE 1 TO 2 TABLETS BY MOUTH EVERY 4 TO 6 HOURS NEEDED FOR PAIN 12/03 completed Not Available Not Available Not Available rifampin 300 mg capsule TAKE 1 CAPSULE BY MOUTH TWICE A DAY active Not Available Not Available No t Available ofloxacin 0.3 % ear drops INSTILL 10 DROPS INTO THE AFFECTED EAR(S) TWICE DAILY FOR 7 DAYS 09/13 completed Not Available Not Available Not Available clindamyc in 1 % topical gel active Not Available Not Available Not Available trazodone 100 mg tablet take 1 tablet by mouth at bedtime if needed for sleep 10/14 completed reports he is no longer taking 09/09/18 Not Available Not Available Not Available Humalog U-100 Insulin 100 unit/mL subcutane ous solution Injected 10units of Humalog SC into the RUQ of Abdomen 12/03 completed Not Available Not Available Not Available Nicoderm CQ 14 mg/24 hr daily transderm al patch Apply 1 PATCH EVERY DAY by transder mal route. IF EFFECTIV E THEN 7 MG PATCN 2012 active Not Available Not Available Not Avai lable omeprazol e 20 mg capsule,d elayed release take 1 capsule by mouth once daily 12/30 completed Not Available Not Available Not Available diclofena c sodium 75 mg tablet,de layed release take 1 tablet by mouth twice a day for 10 days active Not Available Not Available No t Available hydroxyzi ne HCl 25 mg tablet TAKE 1 TABLET BY MOUTH FOUR TIMES A DAY active Not Available Not Available No t Available Culturell e 10 billion cell capsule Take 1 capsule 3 times a day by oral route for 14 days. 02/14 completed Not Available Not Available Not Available lisinopri l 5 mg tablet take 1 tablet by mouth once daily 10/14 completed Not Available Not Available Not Available mupirocin 2 % topical ointment APPLY TO AFFECTED AREA 3 TIMES A DAY 02/25 completed Not Available Not Available Not Available levofloxa junito 500 mg tablet take 1 tablet by mouth every 24 hours for 5 days 02/14 completed Not Available Not Available Not Available Valium 10 mg tablet Take 1 tablet (10 mg) by oral route 1 hour prior to procedur e 2010 active Not Available Not Available Not Avai lable SF 5000 Plus 1.1 % dental cream BRUSH WITH TOOTHPAS TE TWICE DAILY FOR 2 MINUTES , DO NOT EAT, DRINK OR RINSE FOR 30 MINUTES 12/31 completed one time Rx*lb Not Available Not Available Not Available fluticaso ne propionat e 50 mcg/actua tion nasal spray,mary beth pension instill 2 sprays into each nostril once daily for 10 days 03/08 completed Not Available Not Available Not Available clotrimaz ole 1 % topical cream APPLY TO THE AFFECTED AND SURROUND ING AREAS OF SKIN BY TOPICAL ROUTE 2 TIMES PER DAY IN THE MORNING AND EVENING 11/29 completed Not Available Not Available Not Available doxycycli ne hyclate 100 mg tablet TAKE 1 TABLET BY MOUTH EVERY 12 HOURS FOR 7 DAYS 02/25 completed Not Available Not Available Not Available hydroxyzi ne pamoate 25 mg capsule take 1 capsule by mouth twice a day 02/07 completed Not Available Not Available Not Available clindamyc in 1 % lotion 03/08 completed Not Available Not Available Not Available potassium 25 mEq effervesc ent tablet Take 1 tablet every day by oral route. 2014 active LAST PHA 06/19/13 LABS 09/26/13 Not Available Not Available Not Available cyclobenz aprine 5 mg tablet TAKE 1 TABLET BY MOUTH THREE TIMES A DAY NEEDED 12/31 completed one time Rx Not Available Not Available Not Available Alcohol Wipes Use twice daily as directed for monitori ng glucose, Dx Code E11.9 2019 active Not Available Not Available Not Avai lable Flovent HFA 110 mcg/actua tion aerosol inhaler inhale 2 puffs by mouth twice a day 11/29 completed Not Available Not Available Not Available trazodone 5 mg 1 tab daily active Not Available Not Available No t Available potassium 20 daily active Not Available Not A vailable Not Available metformin 05/03 completed Not Available Not Available Not Available ProAir HFA 90 mcg/actua tion aerosol inhaler Inhale 2 puffs every 4-6 hours by inhalati on route as needed. 12/30 completed Not Available Not Available Not Available quetiapin e 50 mg tablet take 1 tablet by mouth once daily at bedtime 08/02 completed Not Available Not Available Not Available FreeStyle Lite Meter kit USE DIRECTED active Not Available Not Available No t Available FreeStyle Lite Strips Use twice daily as directed for monitori ng glucose, Dx Code E11.9 2019 active 12/31/20 =not currentl y using. Not Available Not Available Not Available Invega Sustenna 39 mg/0.25 mL intramusc ular syringe Inject 0.5 mL every month by intramus cular route. active Not Available Not Available No t Available Gavilax 17 gram/dose oral powder TAKE 17 GRAMS DISSOLVE D IN WATER AND DRINK DAILY 02/07 completed Not Available Not Available Not Available BD Insulin Syringe Ultra-Fin e 0.3 mL 31 gauge x 5/16 use to inject INSULIN once daily in THE AM active Not Available Not Available No t Available Vitals Date Recorded Body height Body mass index (BMI) Body weight Oxygen saturation Oxygen saturation in Arterial blood by Pulse oximetry Heart rate Systolic blood pressure Diastolic blood pressure Provider Name and Address Organization Details Last Updated DateTime 1 161.29 cm 37.8 kg/m2 68204.5 4 g 97 % 97 % 87 /min 120 mm[Hg] 90 mm[Hg] Shantell Mariscal [facility] 1 07:49:57 Date Recorded Systolic blood pressure Diastolic blood pressure Provider Name and Address Organization Details Last Updated DateTime 02/02/2021 138 mm[Hg] 86 mm[Hg] Jacqui Vega PA-C [address] [place] [address], [id number], [facility] 02/02/2021 08:03:30 Date Recorded Body height Body mass index (BMI) Body weight Systolic blood pressure Diastolic blood pressure Provider Name and Address Organization Details Last Updated DateTime 02/21/2021 161.29 cm 37.7 kg/m2 59055.35 g 124 mm[Hg] 76 mm[Hg] Ryann Almonte [facility] 1 10:23:14 Date Recorded Body height Body mass index (BMI) Body weight Oxygen saturation Oxygen saturation in Arterial blood by Pulse oximetry Heart rate Systolic blood pressure Diastolic blood pressure Provider Name and Address Organization Details Last Updated DateTime 1 161.29 cm 37.2 kg/m2 02448.5 7 g 97 % 97 % 102 /min 136 mm[Hg] 90 mm[Hg] Lashaun Pham LPN [facility] 1 15:29:48 Date Recorded Body height Body mass index (BMI) Body weight Heart rate Systolic blood pressure Diastolic blood pressure Provider Name and Address Organization Details Last Updated DateTime 1 161.29 cm 36.6 kg/m2 75806.4 g 88 /min 98 mm[Hg] 60 mm[Hg] Dagoberto Augustin MA [facility] 1 11:51:32 Date Recorded Body height Body mass index (BMI) Body weight Systolic blood pressure Diastolic blood pressure Provider Name and Address Organization Details Last Updated DateTime 03/17/2021 161.29 cm 36.6 kg/m2 55306.4 g 124 mm[Hg] 80 mm[Hg] Elaine Quinonez MA [facility] 1 10:33:41 Social History Question Answer Notes LastModified by Organizat ion Details LastModified Time Tobacco Smoking Status Current Every Day Smoker 06/21 PPD Not Available [facility] 11/10/2010 02:08:28 Do You Have An Advance Directive? No Given Form @ [facility] On 05/27/2009, 06/19/13 [email or web address] Information not available 05/27/2009 What Is Your Level Of Alcohol Consumption? None <1/month. Had Some Trouble W/etoh Early 20s Information not available 08/02/2016 Do You Wear A Helmet When Biking? No [email or web address] Information not available 08/26/2015 How Much Tobacco Do You Chew? None [email or web address] Information not available 05/04/2011 What Type Of Diet Are You Following? REGULAR [email or web address] Information not available 05/04/2011 Which Illicit Or Recreational Drugs Have You Used? MJ Weekly Past Hx Of Percocet Abuse/nasal Heroin. No Hx IVDA [email or web address] Information not available 04/07/2010 Do You Or Have You Ever Used E-cigarettes Or Vape? Former User Of Electronic Cigarettes Not Current 12/31/2019 Tmg Information not available 01/31/2019 Education 12 [place] [employer] [place]-gra d 04/01 Information not available 07/23/2014 How Many Days In The Past Year Have You Had A Heavy Drinking Consumption (4+ Female, 5+ Male)? 0 [email or web address] Information not available 08/13/2012 Are There Any Guns Present In Your Home? No [email or web address]_[email or web address] Information not available 05/04/2011 Live Alone Or With Others? With Others Parents. Partial Custody Of Kids [email or web address] Information not available 06/19/2013 Patient Has Health Care Proxy Signed And In Chart Yes Manjula Winslow [email or web address] Information not available 02/10/2019 DM Disease Process Post-needs More Instruction Information not available 02/14/2016 Nutrition Post-needs More Instruction Information not available 02/14/2016 Physical Activity Post-needs More Instruction Information not available 02/14/2016 Medications Post-needs Review Information not available 02/14/2016 Monitoring Post-needs Review Information not available 02/14/2016 Acute Complications Post-needs More Instruction Information not available 02/14/2016 Chronic Complications Post-needs More Instruction Information not available 02/14/2016 Coping Post-needs Review Information not available 02/14/2016 Behavior Change Post-needs More Instruction Information not available 02/14/2016 DSME Plan Goal Healthy Eating: Information not available 02/14/2016 DSME Plan Goal Success 50%-half The Time: Information not available 02/14/2016 DSME Plan Goal Evaluation: 02/14/2016 Information not available 02/14/2016 DSME 2nd Goal Monitoring Information not available 02/14/2016 DSME 2nd Goal Success 50%-half The Time: Information not available 02/14/2016 DSME 2nd Goal Evaluation: 02/14/2016 Information not available 02/14/2016 DSME Plan Status In Progress - Infor mation not available 02/14/2016 Marital Status '15 [email or web address] Informatio n not available 07/23/2014 Mosquito Repellent Used Routinely Yes [email or web address] Information not available 08/26/2015 What Was The Date Of Your Most Recent Tobacco Screening? 02/21/2021 [email or web address] Information not available 02/21/2021 How Many Children Do You Have? 2 Sons B' [email or web address] Information not available 05/25/2009 What Is Your Current Pack Years? [email or web address] Information not available 08/02/2016 Seat Belts Used Routinely Yes [email or web address] Information not available 05/04/2011 Are You Sexually Active? Yes DBA_[email or web address] Information not available 05/04/2011 Smoke Alarm In Home Yes [email or web address]_[email or web address] Information not available 05/04/2011 At What Age Did You Start Smoking Tobacco? 18 Information not available 07/23/2014 Do You Or Have You Ever Used Smokeless Tobacco? Never Used Smokeless Tobacco Information not available 01/31/2019 How Much Tobacco Do You Smoke? 0.25 PPD [email or web address] Information not available 09/02/2019 General Stress Level Medium Information not available 02/14/2016 Do You Use Sunscreen Routinely? Yes [email or web address] Information not available 05/04/2011 How Many Years Have You Smoked Tobacco? 25 Smoked Since Age 18 Information not available 02/07/2019 Sex: Unknown Functional Status None recorded. Mental Status None recorded. Family History Relationship Description Onset Age of this Age Resolved Age Notes LastModified by Organization Details LastModified Time Mother Diabetes mellitus type II, smoker [email or web address] Not available 03/28/2019 09:33:05 Maternal Grandmother Malignant neoplastic disease mother piverson Not available 03/28/2019 09:34:04 Father Diabetes mellitus type II piverson Not available 03/28/2019 09:33:09 Son Problem A&W [email or web address] Not available 0 09/26/2013 13:46:42 Paternal Grandfather Myocardial infarction x 6 [email or web address] Not available 09/26 13:46:42 Paternal Grandfather Malignant tumor of lung welder production line combination , remove d asbest os. non-sm oker piverson Not available 03/28/2019 09:34:18 Brother Problem obesit y rmidler Not available 09/26/2013 13:46:42 Paternal Grandmother Cerebrovascu lar accident as an older woman piverson Not available 03/28/2019 09:34:29 Paternal Grandmother Diabetes mellitus type II piverson Not available 03/28/2019 09:33:12 Paternal Aunt Diabetes mellitus type II piverson Not available 03/28/2019 09:33:22 Notes:No known family h/o HT N, hyperlipidemia, breast cancer, prostate cancer, colon cancer. Mother adopted d/t substance abuse in parents. Father's side with substance abuse. Medical History No medical history recorded. Immunizations Vaccine Type Date Status Note Provider Nam e and Address Organization Details Recorded Time Influenza, split virus, trivalent, preservative 1 completed Not Available [facility] 07/05/2019 02:18:31 OPV 08/25/198 6 completed Not Available [facility] 05/03/2011 05:22:13 Td(adult) unspecified formulation 0 completed Not Available [facility] 05/03/2011 05:22:13 Hep B, unspecified formulation 7 completed Not Available [facility] 05/03/2011 05:22:13 OPV 6 completed Not Available [facility] 05/03/2011 05:22:41 Hep B, unspecified formulation 7 completed Not Available [facility] 05/03/2011 05:22:13 OPV 8 completed Not Available [facility] 05/03/2011 05:22:13 DTP 6 completed Not Available [facility] 05/03/2011 05:22:13 OPV 0 completed Not Available [facility] 05/03/2011 05:22:13 MMR 1 completed Not Available [facility] 05/03/2011 05:22:13 DTP 6 completed Not Available [facility] 05/03/2011 05:22:13 MMR 7 completed Not Available [facility] 05/03/2011 05:22:13 DTP 7 completed Not Available [facility] 05/03/2011 05:22:13 Hep B, unspecified formulation 8 completed Not Available [facility] 05/03/2011 05:22:13 Hib, unspecified formulation 8 completed Not Available [facility] 05/03/2011 05:22:13 DTP 8 completed Not Available [facility] 05/03/2011 05:22:13 DTP 1 completed Not Available [facility] 05/03/2011 05:22:41 Novel [id number] 9 completed Not Available [facility] 07/05/2019 02:28:15 Td (adult), 5 Lf tetanus toxoid, preservative free, adsorbed 9 completed Not Available [facility] 07/05/2019 02:36:22 influenza, unspecified formulation 0 completed Not Available [facility] 05/03/2011 05:22:41 Influenza, split virus, trivalent, PF 4 completed Not Available [facility] 07/05/2019 02:36:26 Influenza, split virus, quadrivalent, PF 5 completed Not Available [facility] 07/05/2019 02:26:43 pneumococcal polysaccharide PPV23 6 completed Not Available [facility] 07/05/2019 02:20:41 Influenza, split virus, quadrivalent, PF 6 completed Not Available [facility] 07/05/2019 02:33:42 Influenza, split virus, quadrivalent, PF 8 completed Not Available [facility] 07/05/2019 02:22:59 pneumococcal polysaccharide PPV23 0 completed TRAVIS Gutierrez, [facility] 09/04/2019 10:46:18 COVID-19, mRNA, LNP-S, PF, 30 mcg/0.3 mL dose 1 completed ZEENAT Keita [facility] 02/02/2021 07:48:06 COVID-19, mRNA, LNP-S, PF, 30 mcg/0.3 mL dose 1 completed ZEENAT Keita, [facility] 02/02/2021 07:48:18 Past Encounters Encounter ID Performer Location Encounter Start Date Encounter Closed Date Diagnosis/Indication Diagnosis SNOMED-CT Code Diagnosis ICD10 Code Diagnosis Note [id number] Radiology , [address] [place] [address] 08/23/2000 16:30:00 07/08/2008 02:02:29 [id number] Radiology , [address] [place] [address] 04/19/2000 13:30:00 07/08/2008 02:02:29 [id number] , [facility], OFFICE [address] [place] [address] 05/25/2009 09:42:40 05/25/2009 10:40:44 [id number] [facility], OFFICE [address] [place] [address] 05/27/2009 08:10:52 05/27/2009 09:44:16 [id number] , [facility], [address] [facility] [place] [address] 01/14/2010 13:25:53 01/17/2010 10:45:55 [id number] [facility], OFFICE [address] [place] [address] 04/07/2010 10:30:43 04/07/2010 12:46:32 [id number] [facility], OFFICE [address] [place] [address] 08/30/2010 08:09:14 08/30/2010 10:46:30 [id number] [facility], OFFICE [address] [place] [id number] 01/02/2011 11:01:29 01/03/2011 12:37:40 [id number] [facility], OFFICE [address] [place] [address] 02/03/2011 14:30:48 02/03/2011 16:13:45 [id number] [facility], OFFICE [address] [place] [address] [place] [address] 02/08/2011 09:38:28 02/08/2011 10:42:06 [id number] [facility], OFF[address] [place], [place] [address] 06/13/2011 13:57:16 06/13/2011 15:35:30 [id number] ZEENAT Loo, [facility], OFFICE [address] [place] [address] 02/15/2012 11:12:47 02/15/2012 11:49:36 [id number] Annabel Miller LPN , [facility], OFFICE [address] [place] [address] 08/13/2012 09:07:21 08/13/2012 10:38:26 [id number] Dayna Mcpherson Physical Therapy, [facility] [address] [place] [address] 08/20/2012 09:01:15 08/21/2012 09:54:13 [id number] ZEENAT Loo, [facility], OFFICE [address] [place] [address] 04/29/2013 16:46:14 04/30/2013 09:34:28 Tobacco user [id number] Seizure 60680330 ?Seiszu re twice over the weekend. Denies drug/alcoh ol use. Unclear exactly what happened. Will get records. Mom will dispense ativan one at a time so he can take it. Has hx opiate abuse. Will get recoerds from [facility] and [facility] and try to get in stat to neuro. Pt cannot drive until this is cleared by neuro. Pt and mom understand this. >50% 45 min coordinati care [id number] [facility], [place]ICE [address] [place] [address] 05/14/2013 09:14:15 05/19/2013 09:08:59 Tobacco user [id number] encouraged to quit Seizure 49209272 Still unclear what exactly happened. Aileen and I both seem to think this is less likely true seizure and perhaps a response to stress/anx iety, sleeplessn ess, benadryl, other meds, etc. Will be getting testing for Jane within the next few weeks. Will follow his lead on this. Encouraged to avoid benadryl. Does have sleepig issues. I informed him can try otc valerian or melatonin at lowest possible dose. [id number] [facility], OFFICE [address] [place] [address] 06/19/2013 13:41:50 06/19/2013 15:52:36 Adult health examination 100950151 Benign exam. FHx DM and very high TGL Influenza vaccine needed [id number] 106 Seizure 02908026 Still unclear what exactly happened. Aileen is following him. [id number] Stiven Whitley PA-C [facility], OFFICE [address] [place] [address] 09/03/2013 08:59:22 09/03/2013 09:37:47 Anxiety 80020994 Seems more stable since admission and new meds. To call [facility] to make sure has routine f/u for adjustment of meds as needed Epidermoid cyst of skin 907055180 not much to see here. If recurs, use warm compresses , abx ointment and band aid to avoid chaffing and return to let me see it. [id number] Jelly Chappell RN , [facility], OFFICE [address] [place] [address] 09/26/2013 13:08:12 09/29/2013 08:24:11 Epidermoid cyst of skin 021508343 [id number] Diaz [facility], OFFICE [address] [place] [address] 07/23/2014 11:06:01 07/23/2014 12:00:58 Adult health examination 845395151 Exam done. Check labs Was on K+ for low potassium. now off it 3 days. Will repeat next week. Tobacco user 017649514 E ncouragd to quit Influenza vaccine needed [id number] 106 Anxiety 31607027 Startin g partial hospitaliz ation tomorrow to help adjust meds/suppo rt. On hydroxyzin e/zyprexa/ trazodone now. Risperadal was stopped. [id number] Sunil Rodríguez , [facility], OFFICE [address] [place] [address] 03/11/2015 16:18:28 03/11/2015 21:43:53 Insomnia 698697502 Trazodone has helped in past, I'd rx this but now ok with hydroxyzin e only Urge incon tinence of urine 99628630 Suspect distractio n plus cayenne peppers or nicotine. Cut out these and see how doing. If not improving, consider uro referral Hypokalemia 44721770 omid ck today. If low, consider repleting again. [id number] Ld Faith MD , [facility], OFFICE [address] [place] [address] 07/07/2015 08:26:05 07/07/2015 14:47:32 Insomnia 951049547 G47.00 told to take atarax just at bedtime to aid in sleep Trazodone has helped in past, I'd rx this but now ok with hydroxyzin e only Schizoaffe ctive disorder 95355198 F25.9 needs Rx from [facility] restarted Daytime somnolence 47156 81523 00 R40.0 likely due to taking atarax thrice daily, poss concurrren t viral syndrome asked him to take only at night as needed He and i agree he is too sleepy to drive, we will call mother to pick him up observe him [id number] Yen Harper , [facility], [address]ICE [address] [place] [address] 07/12/2015 14:37:40 07/13/2015 08:47:14 Schizoaffective disorder 88940197 F25.9 Seems to do well with zyprexa 5mg bid and hydroxyzin e 25mg tid. Continue working on getting a therapist/ psychiatri st. [id number] Ld Faith MD , [facility], OFFICE [address] [place] [address] 08/16/2015 08:48:03 08/18/2015 09:20:20 Schizoaffective disorder 62216502 F25.9 Seems to do well with zyprexa 5mg bid and hydroxyzin e 25mg tid. Continue working on getting a therapist/ psychiatri st. Excessive somnolence 372 660333 R40.0 likely med related i asked him to stop the hydroxyzin e, though surely he is getting the common over sedation/m asked facies/hyp okinesia/ parkinsons gait from zyprexa. his father came here to pick him up., he again, as has been his habit, came here from work, slept some in an exam room and left without c/o. f/u with PCP to consider changing from zyprexa, i am to unfamiliar with his Hx to make such change. zyprexa=ol anzapine 10% Central nervous system: Drowsiness (dose dependent; adolescent s and adults 20% to 39%), extrapyram idal reaction (dose dependent; adults ?32%; adolescent s ?10%), akathisia (adolescen ts and adults 3% to 27%), parkinsoni an-like syndrome (14% to 20%; includes akinesia, cogwheel rigidity, extrapyram idal syndrome, hypertonia , hypokinesi a, maked facies, and tremor), [id number] Yen Harper , [facility], [address] [place] [address] 08/18/2015 14:35:24 08/18/2015 15:22:05 Schizoaffective disorder 75494494 F25.9 Feels like getting too tired but also anxiety is up. Try olanzepine 5mg at night and hydroxyzin e in am and in afternoon prn. If still too sleepy, stop olanzepine . Continue working on getting a psychiatri st. Excessive somnolence 372 354284 R40.0 likely med related [id number] Yen Vallecillo Leroy , [facility], [address] [place] [address] 08/26/2015 08:46:27 08/26/2015 09:59:28 Acute upper respiratory infection 70120118 J06.9 Seems like sinusitis. Will tx. continue mucinex and nasal saline [id number] Stiven Whitley PA-C , [facility], [address]ICE [address] [place] [address] 02/08/2016 14:40:58 02/08/2016 15:22:50 Cigarette smoker 21267249 F17.210 Tobacco user 481244913 Z 72.0 Encouragd to quit Diabetes mellitus 375885 09 E11.9 New dx. Now on metformin and lantus. He will call w/ needles and lancets when he knows specs.Refe r to DM ed. Standing orders Cellulitis and abscess of thigh 213830173 L02.415 Repacked. Still quite indurated. Repack at home q2 days and fu 1 week. [id number] KRISTAL Ramon DM Education , [facility] [address] [place] [address] 02/14/2016 13:16:57 02/22/2016 13:54:06 Uncontrolled type 2 diabetes mellitus 675554244 E11.65 [id number] Stiven Whitley PA-C , [facility], OFFICE [address] [place] [address] 02/15/2016 10:27:15 02/15/2016 11:05:38 Active or passive immunization 537981051 Z23 Diabetes mellitus 122086 09 E11.9 Improving. On lantus. Will max metformin. Informed s/s of low sugarsBook ing f/u w/ DM ed Cellulitis and abscess of thigh 152681791 L02.415 Improving. Will not pack again. If worsening, return Cigarette smoker 2265307 7 F17.210 Tobacco user 793807575 Z 72.0 Encouraged to quit. Precontemp lative [id number] Stiven Whitley PA-C , [facility], [address]ICE [address] [place] [address] 05/03/2016 09:28:17 05/03/2016 11:10:56 Acute upper respiratory infection 56245230 J06.9 Viral illness. Some RAD. Try albuterol and tesalon Diabetes mellitus 038498 09 E11.9 due for labs- will do today Cigarette smoker 5161420 7 F17.210 Tobacco user 967465028 Z 72.0 Encouraged to quit. Precontemp lativeHas decreased. Encouraged to keep this up [id number] CYNTHIA Miles, [facility], OFFICE [address] [place] [address] 06/22/2016 08:44:05 06/22/2016 14:35:21 Cigarette smoker 11073751 F17.210 Tobacco user 612405008 Z 72.0 Encouraged to quit. Has decreased. Encouraged to keep this up Diabetes mellitus 806510 09 E11.9 A1C 7.6. Now on 20 units for past month. Will wait til next A1C Acute otitis media 12304 03 H66.92 improving. finish abx [id number] CYNTHIA Miles, [facility], OFFICE [address] [place] [address] 08/02/2016 13:46:58 08/03/2016 13:52:34 Adult health examination 421142899 Z00.00 Exam done Counseling 058280709 Z71 .9 Cigarette smoker 0627875 7 F17.210 see below Tobacco user 841297832 Z 72.0 Encouraged to quit. 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 Can help w/ job options and clothing Diabetes mellitus 088167 09 E11.9 A1C 7.6. Now on 20 units for past month. Due for A1C Gastroesop hageal reflux disease 107216811 K21.9 on and off for a while now. Try PPI regularly for 2 wks then as needed. [id number] Stiven Whitley PA-C , [facility], OFFICE [address] [place] [address] 09/11/2016 08:55:58 09/12/2016 08:31:14 Cigarette smoker 75049950 F17.210 see below Tobacco user 554504980 Z 72.0 Encouraged to quit. Working with his son to decrease his moking and get healthier. Cellulitis and abscess of groin 814142581 L03.044 [id number] Prabha Son LPN , [facility], [address] [place] [address] 03/08/2017 15:45:41 03/09/2017 09:27:53 Cigarette smoker 82934715 F17.210 see below Tobacco user 877125059 Z 72.0 Encouraged to decrease Diabetes mellitus 378357 09 E11.9 Tolerating meds well. Come for labs. Major depr ession, melancholic type 741839790 F32.9 improved after psych admit Seizure 19256448 R56.9 Unclear dx, but seen by neurology for this Schizoaffe ctive disorder 92853027 F25.9 Followed by psych. on invega sustana with good response. [id number] Talia Watts MA , [facility], OFFICE [address] [place] [address] 04/03/2017 14:50:16 04/03/2017 15:26:15 Cigarette smoker 95375955 F17.210 Tobacco user 628845465 Z 72.0 Encouraged to quit Abdominal pain 94931112 R10.9 Unclear cause. Will repeat LFTs from ER and make sure not worsening. Get into GI- appt was made for a month or so Diabetes mellitus 758298 09 E11.9 Increase lantus to 12 units from 10 for now. Address more in 2 mos [id number] Angie Pollock PA-C , [facility], OFFICE [address] [place] [address] 07/27/2017 08:35:56 07/30/2017 08:22:22 Cigarette smoker 15290865 F17.210 Did not address today.Smok ing increases infection risk & prolongs healing. Tobacco user 333028629 Z 72.0 Otitis media 03032525 H6 6.92 L OM with ruptured TM. Infection still present after finishing azithromyc in course. Will use clarithrom ycin due to numerous allergies & topical ear drops to protect ruptured TM. Insomnia 589627624 G47.0 0 Needs refill. [id number] Stiven Whitley PA-C , [facility], OFFICE [address] [place] [address] 09/13/2017 10:55:25 09/13/2017 14:28:00 Diabetes mellitus 09702250 E11.9 Increase lantus to 12 units from 10 for now. Address more in 2 mos Schizoaffe ctive disorder 02218629 F25.9 Followed by psych. refill Cigarette smoker 4067438 7 F17.210 Tobacco user 526618817 Z 72.0 Encouraged to quit [id number] HEAVENLY Soto , [facility], OFFICE [address] [facility] [place] [address] 11/06/2017 12:31:51 11/06/2017 13:37:45 Cigarette smoker 00770642 F17.210 We discussed the [employer] program. Handout was provided. We discussed the health risks of smoking and the benefits of quitting. : smoking 1-2 cigs daily; started age 18; quit cold turkey in past We discussed text message support from [employer].Farshad lobato will consider signing up Tobacco user 620112403 Z 72.0 Acute otitis media 90583 03 H66.91 A: right TM is red and bulging; patient having worsening right ear pain the past 2 days Patient is allergic to penicillin s and bactrim and ceclor P: will prescribe clarithrom ycin 500 mg bid x 10 days [id number] Talia Watts MA , [facility], OFFICE [address] [place] [address] 12/03/2017 15:03:06 12/03/2017 16:11:35 Benign essential hypertension 8436163 I10 See JOANNE below Mixed hyperlipidemia 267 327727 E78.2 Still a bit elevated Diabetes mellitus 449578 09 E11.9 Increase lantus to 18 units from 15 for now. Schizoaffe ctive disorder 29618434 F25.9 [facility]ed by [facility] . Last Invega Sustina shot was midd Jul 2017, usually monthly.Ne w therapist at [facility] . Luis Mehta. Last saw him 11/28 and another 12/05. After that thinks will be able to see prescriber . Will see if [facility] can help move this ahead Proteinuria 41563592 R80 .9 start JOANNE Cigarette smoker 7266032 7 F17.210 Tobacco user 365557484 Z 72.0 Encouraged to quit [id number] Sohail Hassan Jr. MD , [facility], OFFICE [address] [facility] [place] [address] 02/06/2018 12:57:08 02/06/2018 15:07:01 Cigarette smoker 82451193 F17.210 Encouraged patient to cut back and consider cessation. Discussed risks associated with prolonged tobacco exposure. Discussed possibilit y of medication options to assist in cessation. Reviewed cessation support options available through [facility]. Approximat jj 3 minutes spent discussing smoking and strategies / reasons to quit. Long-term drug therapy 598455728 Z79.899 Normal QT intervals. [id number] Roslyn Aguirre LPN , [facility], OFFICE [address] [facility] [place] [address] 03/01/2018 09:04:23 03/01/2018 12:51:39 Cigarette smoker 36452924 F17.210 Encouraged patient to cut back and consider cessation. Discussed risks associated with prolonged tobacco exposure. Discussed possibilit y of medication options to assist in cessation. Reviewed cessation support options available through [facility]. Approximat jj 3 minutes spent discussing smoking and strategies / reasons to quit. Mixed hyperlipidemia 267 843629 E78.2 continue to work on diet and exercise as discussed Active or passive immunization 139323589 Z23 Proteinuria 89708968 R80 .9 Improved. Encouraged patient to resume lisinopril and take regularly. Diabetes mellitus 951552 09 E11.9 Reviewed results of A1c. Discussed importance of remaining physically active. Suggested taking metformin 4 tablets all at the same time once a day to improve compliance . Foot exam and retinal exam updated today. [id number] Jr. MD ED Mckeon, [facility], OFF[address] [facility] [place] [address] 06/27/2018 14:50:06 06/27/2018 17:07:00 Schizoaffective disorder 76222011 F25.9 Symptomati c. Meets with therapist regularly. Would benefit from resuming medication s. May require evaluation by horticultural worker. Diabetes mellitus 255587 09 E11.9 Poorly controlled . Does not appear to be taking metformin regularly. Proteinuria 31061922 R80 .9 Encouraged patient to resume lisinopril Chest pain 34177123 R07. 9 In the setting of poorly controlled diabetes and history of cocaine abuse. Patient is agreeable to emergency room evaluation . Spoke with emergency room physician regarding patient's symptoms and potential workup. [id number] Sohail Hassan Jr. MD , [facility], [address] [place] [address] 07/08/2018 12:52:33 07/08/2018 13:42:43 Acute bronchospasm 9768508487 9100 J98.01 Discussed treatment options to include prednisone burst versus inhaled corticoste roid. Reviewed risks and benefits of both medication s as well as red flag symptoms and when to seek emergency care. Decision made to avoid prednisone at this time due to potential side effects of insomnia, exacerbati on of mood symptoms, and hyperglyce donna. Will initiate Flovent. Advised rinsing mouth with water after each use to avoid thrush. Thoracic back pain 19659 8004 M54.6 Advise conservati ve measures including stretching , massage, Acetaminop hen. Suggested options of chiropract ic care versus to physical therapy if symptoms persist. Nicotine dependence 5629 4008 F17.200 Encouraged patient to cut back and consider complete cessation. Discussed risks associated with prolonged tobacco exposure. Discussed possibilit y of medication options to assist in cessation. Reviewed cessation support options available through [facility]. Fredy gardner 3 minutes spent discussing smoking and strategies / reasons to quit. Schizoaffe ctive disorder 33092253 F25.9 Symptomati c/Improved . Meets with therapist regularly. Verbally contracts for safety. Further management as determined by psychiatry .. Proteinuri a due to type 2 diabetes mellitus 4068843312 46987 E11.29 Blood sugar control has improved now that medication s are being taken more regularly. Plan to update labs prior to next visit. Patient requested to bring glucose monitoring log to that visit. Patient to continue with regular exercise. Will update urine microalbum in. If positive, may need to consider resuming lower dose of lisinopril versus alternativ e agent. At this point he has had only one positive result. [id number] CYNTHIA Sepulveda, [facility], [address] [place] [address] 07/15/2018 17:06:44 07/15/2018 17:46:01 Acute otitis media 6182709 H66.92 left otitis media [id number] Sohail Hassan Jr. MD , [facility], [address] [place] [address] 09/09/2018 12:39:54 09/09/2018 18:03:20 Cigarette smoker 24948816 F17.210 Encouraged patient to cut back and consider cessation. Discussed risks associated with prolonged tobacco exposure. Discussed possibilit y of medication options to assist in cessation. Reviewed cessation support options available through [facility]. Fredy gardner 3 minutes spent discussing smoking and strategies / reasons to quit. Cellulitis of foot 98660 6007 L03.119 Clinically improving with clindamyci n. Encouraged completing antibiotic s. Infection complicate d by presence of diabetes diagnosis. Tinea pedis 5508656 B35. 3 Could consider additional prescripti on for topical corticoste roid. Lateral epicondylitis 20 9558461 M77.11 Advised relative rest, stretching , anti-infla mmatory medication s. Tennis elbow strap during work hours. Could consider formal physical therapy evaluation and treatment if symptoms not improving Diabetes mellitus 397995 09 E11.9 Has been taking metformin more consistent ly. Denies hypoglycem ia. Will update A1c test today. [id number] Betsy Mcneal NP , [facility], [address] [place] [address] 10/14/2018 14:32:33 10/14/2018 16:54:24 Cigarette smoker 57924980 F17.210 3+ minutes spent in smoking josé miguel liz. Rx given for nicotrol inhalers. Right uppe r quadrant pain 922586838 R10.11 Reviewed ddx including gastritis, GERD, cholelithi asis, kidney stone. Pt is nontoxic in appearance . Reviewed red flag sxs and when to RTO. Labs and ultrasound pending. [id number] DAVE Petreson, [facility], OFFICE [address] [place] [address] 11/29/2018 07:46:21 11/29/2018 12:53:20 Abscess 249207922 L02.91 s/p I&D in the ER. Healing well. Continue routine wound care. [id number] MD ED Peterson, [facility], [address] [place] [address] 01/31/2019 12:37:31 01/31/2019 13:15:33 Renal disorder due to type 2 diabetes mellitus 073414000 E11.22 POC A1C is 9 today. Reports missing diabetes medication a couple times a week and not checking blood sugars regularly. Would likely benefit from nutrition DM/Ed Cigarette smoker 5146834 7 F17.210 cutting back; only 1-2 cig a day; recommend complete cessation! Tobacco user 508729448 Z 72.0 Cellulitis of upper limb 277948071 L03.119 concerning for cellulitis ; I don't feel a clearly fluctuant abscess that can be drained. This has been a recurrent issue for He and I emphasized the fact that uncontroll ed sugars and smoking can put him more at risk-start doxy-start warm compresses x 20 min 3-4 times a day-f/u in 1 week-discu ssed reasons to go to ER Discussed indication s for new prescripti on, risks and benefits of medication , common side effects and how to manage, and reasons to notify prescriber of adverse effects or discontinu ation. [id number] Sohail Hassan Jr. MD FP, [facility], [address] [place] [address] 02/07/2019 09:19:23 02/07/2019 10:24:15 Cigarette smoker 85298601 F17.210 Encouraged patient to cut back and consider cessation. Discussed risks associated with prolonged tobacco exposure. Discussed possibilit y of medication options to assist in cessation. Reviewed cessation support options available through [employer]. Fredy gardner 3 minutes spent discussing smoking and strategies / reasons to quit. Abscess of upper limb 31 9831116 L02.419 Without evidence of abscess. Suspect diabetes is complicati ng symptom resolution . Patient with multiple medication allergies. Would recommend extending doxycyclin e as well as adding clindamyci n. Reviewed red flag symptoms and when to seek emergency care Body mass index 30+ - obesity 319324069 Z68.39 Discussed importance of increased physical activity. Encouraged eating regularly/ not skipping meals. Discussed importance of pain attention to portion size and making healthier selections with fresh fruits and vegetables . Encouraged minimizing empty calories found in soft drinks and alcoholic beverages. Discussed availabili ty of weight loss shared medical appointmen ts available through [employer]. Renal diso rder due to type 2 diabetes mellitus 536096743 E11.22 Continue with metformin and Lantus. Requested close follow-up for further evaluation and management of diabetes. [id number] Mable Alcantara MD , [facility], [address] [place] [address] 03/28/2019 08:56:22 03/28/2019 14:28:43 Acute upper respiratory infection 62932932 J06.9 Educated patient that URI is a viral illness of the upper airways. It is not bacterial and does not benefit from antibiotic s. Average duration of URI is 7-10 days but in a recent trial, treatment at 7-10 days of illness with antibiotic s, intranasal steroids, or placebo did not alter natural history at 3 weeks. Recommende d symptomati c treatments including NSAIDS, semi-uprig ht sleep position, antihistam beba at HS, limited course of nasal sympathomi metics and/or cough syrups, and nasal saline rinses with soft squeeze bottle or Neti pot. Return for fevers > 101 for 3 days, worsening sinus pain, or failure to resolve in 2-4 weeks. Given OOW note and reminded to push water daily. Cigarette smoker 9358800 7 F17.210 Recommend cessation Schizoaffe ctive disorder 85929893 F25.9 Clinically stable on qmo Invega, prn hydroxyzin e. Uncontroll ed type 2 diabetes mellitus 047343956 E11.65 Last A1c 6wks ago high at 10. No known lows on current regimen. Increase Lantus to 20U qd and f/u with Dr Hassan as planned next month. Do lipid panel, BMP today. Wheezing 67565381 R06.2 ProAir inhaler renewed [id number] Sohail Hassan Jr. MD , [facility], [address] [place] [address] 09/02/2019 08:40:50 09/02/2019 09:21:17 Diabetes mellitus 50643388 E11.9 Noncomplia nt with medication s. Refill sent to pharmacy. A1c attempted today. Plan to address further labs at follow-up visit in 2 days Cigarette smoker 3299646 7 F17.210 Encouraged patient to cut back and consider cessation. Discussed risks associated with prolonged tobacco exposure. Discussed possibilit y of medication options to assist in cessation. Reviewed cessation support options available through [facility]. Approximat jj 3 minutes spent discussing smoking and strategies / reasons to quit. Abscess of skin and/or subcutaneous tissue 38787645 L02.91 Reviewed culture results, advised to continue doxycyclin e & warm compresses . Requested follow up in two days. will speak ID specialist regarding antibiotic changes. Hidradenit is suppurativa 05517840 L73.2 Patient with recurrent infections and axilla and inguinal fold. Clinically suspicious for hidradenit is. In discussion with infectious disease specialist , will initiate topical clindamyci n. May require further evaluation by dermatolog y. [id number] Sohail Hassan Jr. MD , [facility], OFF[address] [facility] [place] [address] 09/04/2019 10:40:29 09/04/2019 11:05:30 Abscess of skin and/or subcutaneous tissue 67279040 L02.91 Clinically improving. Patient to complete course of doxycyclin e. Diabetes mellitus 198468 09 E11.9 Noncomplia nt with medication s. Patient to resume medication s. Would benefit from medical management follow-up within the next 3 months. Hidradenit is suppurativa 81533679 L73.2 Patient with recurrent infections and axilla and inguinal fold. Clinically suspicious for hidradenit is. In discussion with infectious disease specialist , will initiate topical clindamyci n. May require further evaluation by dermatolog y. [id number] KRISTAL Bee , [facility], OFFICE [address] [place] [address] 12/31/2019 15:16:51 01/01/2020 11:53:25 Type 2 diabetes mellitus 77136673 E11.9 Pt feeling weak, fatigued, dizzy, lightheade d, nauseous, chest discomfort , polyuria, SOB x several daysEviden ce of slowed speech over phone visit, unable to visually evaluate patient Has not taken DM meds in > 1 weekCannot find testing supplies at homeConcer n for hyperglyce donna or DKA, recommend he go to the ERMother is home, will drive himReport called to [facility] to notify of his arrivalWil l order new DM supplies and routine labsPlan for f/u with PCP Cigarette smoker 3986743 7 F17.210 did not address given current medical status Tobacco user 587465528 Z 72.0 as above [id number] Sohail Hassan Jr. MD FP, [facility], [address] [place] [address] 01/08/2020 14:42:10 01/08/2020 16:08:49 Schizoaffective disorder 48825678 F25.9 Symptomati c/Improved . Meets with therapist regularly. Verbally contracts for safety. Further management as determined by psychiatry .. Diabetes mellitus 923672 09 E11.9 Noncomplia nt with medication s. Patient to resume medication s. Advised appropriat e way to titrate metformin to avoid diarrhea symptoms. Continue with Lantus. Requested patient schedule labs soon and arrange medical management visit in 8 weeks. [id number] Yuliya Reilly , [facility], OFFICE [address] [place] [address] 01/21/2020 13:43:30 01/21/2020 15:25:23 Pain of right shoulder joint 2911635153 0191902 M25.511 continue ice, aleve--PT- -is work related injury, no lifting/ov erhead work for a week [id number] Jerrell Mar, PT Physical Therapy, [address] [address] 01/27/2020 14:02:18 01/28/2020 08:05:42 Tendinitis of right shoulder 3442069802 753780 M75.91 [id number] Jerrell Mar PT Physical Therapy, [address] [address] 02/03/2020 15:13:30 02/04/2020 16:06:19 Tendinitis of right shoulder 4998898491 418521 M75.91 [id number] Rosmery Aleman DNP , [facility], [address] [place] [address] 12/31/2020 14:24:40 01/03/2021 06:42:50 Cigarette smoker 45559808 F17.210 Tobacco user 807579801 Z 72.0 Nausea and vomiting 1693 1999 R11.2 mild nausea persists, emesis x 2 this am Diabetes mellitus 362651 09 E11.9 Diarrhea 11061590 R19.7 took one dose pepto this morning but did not help. will repeat. reports 10 BMs today, decreasing in frequency as day progressed . [id number] Jacqui Vega PA-C FP, [facility], OFFICE [address] [facility] [place] [address] 02/02/2021 07:38:24 02/02/2021 08:07:47 Cigarette smoker 29399480 F17.210 2-3 cigarettes a day, he works at [employer] discussed adverse effects coupled with DM, Obesity and how that leads to heart disease. Tobacco user 750914165 Z 72.0 above Infection of skin and/or subcutaneous tissue 04621481 L08.9 on the mons ubis there are 2 areas of erythema, mild induration , no drainage,a febrile Obesity 131368626 E66.9 BMI today 37.8 discussed need for decreasing , will follow up with dr. Hassan EMR/Labs/M edications /Consults reviewed Hypertriglyceridemia 302 477229 E78.1 last lipids 12/2019 167/343/28 LDL 89 discussed adverse effects of elevated triglyceri carrol, will get new labs fasting and follow up with Dr. Collazo/ Labs/Medic ations/Con sults reviewed Uncontroll ed type 2 diabetes mellitus 778612091 E11.65 A1c 10.4 12/2019 will repeat labs ( his brother recently , pneumonia and covid) He has not been taking. EMR/Labs/M edications /Consults reviewed [id number] KRISTAL Robles , [facility], OFFICE [address] [facility] [place] [address] 02/21/2021 09:57:37 02/21/2021 11:00:11 Cigarette smoker 20245137 F17.210 Currently smoking 3-4 cigarettes per day. Reviewed associatio n between HS and tobacco use. Has tried gum, patch. Declines additional support at this time. Tobacco user 086773622 Z 72.0 Hidradenit is suppurativa 43102308 L73.2 C/W hidradenit is suppurativ e. Reviewed diagnosis, management . Continue oral doxycyclin e, topical clindamyci n. Work note provided for today. Suspect that patient will be able to return 02/22/21. [id number] RAJ Carrillo MD , [facility], OFFICE [address] [facility] [place] [address] 02/25/2021 15:18:03 02/25/2021 17:19:40 Hidradenitis suppurativa 71963783 L73.2 Now seen for this issue for the 4th time in the last 3 weeks, with 2 prior clinic visits and an ED visit. His L axillary abscess has continued to worsen despite doxycyclin e, but he is still not having any signs or symptoms of systemic infection. We discussed risks and benefits of I+D today, and he would like to avoid this at all costs due to anxiety about the procedure. I will therefore attempt to adjust his oral antibiotic regimen: DC doxycyclin e, start daily clinda+rif ampin now. I will also switch back to topical clinda and DC mupirosin as this seemed to be helping more. He was referred to dermatolog y 08/2019 for this, but never made appt so will resend referral now. I gave him strict ED visit parameters for worsening symptoms and antibiotic side effects. Follow up with us if worsening or not improving. [id number] Brian Asnecio PA-C , [facility], OFFICE [address] [facility] [place] [address] 03/10/2021 11:42:23 03/10/2021 12:21:07 Cigarette smoker 68765683 F17.210 Considerin g quitting. Has the inhaler at home.Reinf orced benefits of quitting and reviewed NRT options. Tobacco user 092640456 Z 72.0 Thoracic back pain 95673 8004 M54.6 Discussed pathophysi ology of acute back pain/strai n. Natural history of gradual resolution over weeks to months reviewed. Recommend PT for review of ergonomics , strengthen ing, stretching , and modalities . May use over the counter nonsteroid al anti-infla mmatories as needed for pain; I suggest Ibuprofen 400-600 mg every 6 hours with food or Alleve 1-2 tabs twice a day with food unless contraindi cations exist. Discussed risks and benefits of muscle relaxants like cyclobenza grzegorz; recent data suggest they add little benefit when compared to NSAIDs. They can cause dizziness and sleepiness . They should not be mixed with alcohol or sedating drugs. Those under their influence should not drive or operate machinery as risk of injury or accident is increased. Avoid complete bed rest. Avoid lifting > 10 lbs repeatedly if this worsens pain. May participat e in usual activities unless they make pain worse. Follow-up if numbness, tingling, weakness, incontinen ce, or fever develop or if pain fails to resolve with conservati ve care. [id number] Jerrell Colbert MD , [facility], OFFICE [address] [facility] [place] [address] 03/17/2021 10:18:21 03/17/2021 11:37:36 Thoracic back pain 183144804 M54.6 resume flexeril. Reommend PT, will check into [place] area, lives there now. Continue heat/ice. Health Concerns Section Related Observation LastModified by Organization Detai ls LastModified Time None Recorded Concern Status LastModified by Organization Details LastModified Time None Recorded Advance Directives Directive N: Given Form @ [facility] on 05/27, 06/19/13 Payers Encounter Date Sequence Insurance Name Policy Number Policy Leonardo Covered Member ID Leonardo Member ID Guarantor Name 02/02/2021 1 [place] PR[place] 20[place] - [facility] (MEDICAID) He D Goldy [id number] He D Goldy 02/21/2021 1 [place] - [facility] (MEDICAID) He D [place] [id number] He D [place] 02/25/2021 1 [place] 20[place] - [facility] (MEDICAID) He D Goldy [id number] He D [place] 03/10/2021 1 [place] 20[place] - [facility] (MEDICAID) He D [place] [id number] He D [place] 03/17/2021 1 [place] - [facility] (MEDICAID) He D [place] [id number] He D Goldy Notes Date Note Type Note Provider Name and Address Organization Details Recorded Time 02/02/2021 text/html a/vmg-smoking [id number] bypatient.ImportanceOn a scale of 1-10 with 1 being not important and 10 being very important the patient rates importance of stopping smoking as 7 ConfidenceOn a scale of 1-10 with 1 being not confident and 10 being very confident the patient rates confidence on stopping smoking as 3 Readiness to quit smokingOn a scale of 1-10 with 1 being not ready and 10 being very ready the patient rates readiness to stop smoking as 3 Physiological Dependence/Health RiskCurrently smoking 5 cigarettes per day; Patient has first cigarette within 30 minutes after awakeningNotes:2-3 cigarettes a day 2 sores around his genital area, has been using some clindamycin creamno fever chills drainage. He is a diabetic and has not been taking any medications for this. Last labs 12/2019not checking sugar at home. His brother just from pneumonia and covid. he was diabetic and did not have control of it. He wants to get back on track.continues to smoke, only about 2-3 a day. Jacqui Vega PA-C [address] [place] [address], [phone] [facility] [place] 08:16:05 02/21/2021 text/html a/vmg-smoking [id number] bypatient.ImportanceOn a scale of 1-10 with 1 being not important and 10 being very important the patient rates importance of stopping smoking as 5 ConfidenceOn a scale of 1-10 with 1 being not confident and 10 being very confident the patient rates confidence on stopping smoking as 5 Readiness to quit smokingOn a scale of 1-10 with 1 being not ready and 10 being very ready the patient rates readiness to stop smoking as 5 Physiological Dependence/Health RiskCurrently smoking 5 cigarettes per day; Patient has first cigarette within 30 minutes after awakeningNotes:Currentl y smoking 3-4 cigarettes per day. Reviewed association between HS and tobacco use. Has tried gum, patch. Declines additional support at this time. 35-year-old male w/ PMH of T2DM.Seen in ED over the weekend for groin and axilla abscesses.Suspicious for hydranitus suppurita.Now having symptoms in his axilla.Placed on ABX.No drainage completed.Still having alot of pain.Doesnt feel like he can go to work today. Works at [employer]. Supposed to go in at 10:30am today.Started medication on Sunday. KRISTAL Robles [address] [place] [address], [phone], [facility] [place]/21/[place]21 10:44:44 02/25/2021 text/html 35M patient of Rambo Hassan with PMH DM2, obesity, schizoaffective DO, active smoker presents for same-day visit to discuss: #Hidradenitis suppurativaPatient with visits 02/02/21 and 02/21/21 for this same issueTaking doxycycline and mupirocin, stopped clindamycin.Never followed up with dermatology.No fevers, no nausea/vomiting. RAJ BLAIR MD [address] [place] [address], [phone], [facility] [place] 02/25/2021 17:13:27 03/10/2021 text/html a/VMG-Back PainR eported bypatient.Duration:Pres ent for 1-2 days Location:pain: in the lower back: midline; pain: in the upper back: midline Quality:Pain is constant;Pain is dull ache Severity:pain level 8/10 Context:Pt woke up with pain yesterday Aggravating factors:movement/positi oning Alleviating factors:Improved by rest; relieved by changing position; heating pad, IBU/naproxen helped a little Associated Symptoms:no fever; no weak limbs; no tingling; no numbness of the legs/feet; no incontinenceNotes:Worst pain between shoulder blades, radiating to neckRegular heavy lifting at work at [employer].No obvious injury.After high school injury 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; fractured tailbone around age 11a/vmg-smoking [id number] bypatient.ImportanceOn a scale of 1-10 with 1 being not important and 10 being very important the patient rates importance of stopping smoking as 9 ConfidenceOn a scale of 1-10 with 1 being not confident and 10 being very confident the patient rates confidence on stopping smoking as 1 Readiness to quit smokingOn a scale of 1-10 with 1 being not ready and 10 being very ready the patient rates readiness to stop smoking as 1 Physiological Dependence/Health RiskCurrently smoking 5 cigarettes per day Brian Asencio PA-C [address] [place] [address], [phone], [facility] [place] 03/10/[place]21 12:06:31 03/17/2021 text/html Started 03/08/21D oes a lot of lifting at work/[employer]. Doesn't recall specific injury but next day awoke with pain. Fx tailbone when younger, compressed vertebrae in neck. OOW since 03/09. Was to rtw today, was feeling better but now worse. Tried heat/cold. Finished flexeril yesterday. Was taking ibup & naproxen. Always carries stress in shoulders. Worse in car. No leg weakness/numbness. Jerrell Colbert MD [address] [place] [address], [phone], [facility] [place] 03/17/[place]21 10:56:39
[2024-08-04 14:03] VITALS: BP 124/80; PULSE 76; O2SAT 98; BMI 38.3
--- NOTE | 2024-08-04 14:03 | MHC.PC.OV ---
Vital Signs 08/04/24 14:03 Height 5 ft 4 in Weight 223 lb BMI 38.3 BP 124/80 Blood Pressure Location Rt brachial Position Sitting Pulse 76 Pulse Source Pulse Oximeter Pulse Oximetry (%) 98 Oxygen Delivery Method Room Air Intake Visit Reasons: 4 months f/up Intake Note: pt is here for dm f/up Medication Assistant Required: No Accompanied by: Self / Same As Patient Allergies cefaclor [From Ceclor] Allergy (Mild, Verified 08/04/24 14:03) Rash sulfamethoxazole [From Bactrim] Allergy (Mild, Verified 08/04/24 14:03) Rash trimethoprim [From Bactrim] Allergy (Mild, Verified 08/04/24 14:03) Rash metformin Adverse Reaction (Intermediate, Verified 08/04/24 14:03) Nausea cillins Allergy (Intermediate, Uncoded 06/12/24 08:24) Anaphylaxis Medication List - Last Reconciled 08/04/24 by Luis Rojas, DENTAL PATIENT COORDINATOR- aripiprazole 5 mg PO DAILY atorvastatin 10 mg PO BEDTIME 90 days blood sugar diagnostic (FreeStyle Lite Strips) tid testing blood-glucose meter (FreeStyle Lite Meter kit) TID testing bupropion HCl XL 150 mg PO DAILY empagliflozin (Jardiance) 25 mg PO DAILY lamotrigine 50 mg PO DAILY lancets (FreeStyle Lancets) TID testing losartan 25 mg PO DAILY 90 days paliperidone palm (3 month) (Invega Trinza) mg IM potassium chloride ER 20 mEq PO DAILY semaglutide (Ozempic) 0.25 mg (0.368 mL) subcut QWEEK Tobacco use date assessed: 08/04/24 Dental Screening Dental Screen Date: 08/04/24 Did you have a dental visit in the last 12 months?: Yes Did you have a dental problem in the last 6 months where you did not have access to dental care?: No Was dental information given to patient?: Patient has dentist HPI 4 months f/up HPI Details Chief Complaint Management of elevated hemoglobin A1c levels. History of Present Illness The patient is a 38-year-old male presenting with elevated hemoglobin A1c levels concerning diabetes management. He has a history of Type 2 Diabetes Mellitus, previously poorly controlled, with the most recent hemoglobin A1c measured at 9.1%. The patient's diet has been suboptimal, which likely contributes to poor glycemic control. No history of pain was reported. He has not experienced any complications such as neuropathy, as evidenced by intact foot sensation tested with monofilament. He understands the signs and symptoms to monitor for potential complications but currently denies any related concerns. A history of obesity is also pertinent, as it is a risk factor for diabetic complications. The patient is aware of the need to improve dietary habits to manage his diabetes more effectively. Elevated liver enzymes. I am going to have him get an abdominal ultrasound and hepatitis screen, pt reports his diet has been off. Social History - Nutritional intake is suboptimal with poor dietary habits. - Obesity is present, impacting overall health. Health Maintenance - Routine eye exam scheduled for the fall to monitor diabetic complications. Review of Systems -denies any sob or cp. polyuria, polydipsia, or neuropathy - Neurological: Denies pain. - Endocrine: Reports difficulty controlling blood glucose. Physical Exam General: Cooperative, healthy appearing, comfortable, no acute distress and well developed, obese Orientation: Patient oriented x3 Limitations: No limitations Head: Normal to inspection Ears: Hearing grossly normal bilaterally Nose: Normal external nose present Face and sinus: Normal facial exam Eyes: Appearance normal, both eyes and all related structures Neck: Normal visual inspection and Yes full ROM Respiratory: Normal respiratory effort and able to speak in complete sentences. Clear to auscultation bilaterally Cardiovascular: Regular rate and rhythm. Normal S1 and S2 GI: Normal to inspection. Soft to palpation and nontender Skin: No rashes or lesions noted Neuro: Patient oriented x3 Extremities: Normal to inspection, good sensation with use of monofilament, dssssssss Results - Labs: Hemoglobin A1c of 9.1% Plan - Initiate Ozempic for better glycemic control, scheduled dose increments. - Patient to have a follow-up appointment in three months to evaluate treatment efficacy and diabetes management. - Emphasize the need for dietary modifications to aid in managing blood glucose levels and weight reduction. Discussion Notes I discussed with the patient the elevated hemoglobin A1c levels and the importance of achieving better glycemic control. We reviewed the initiation of Ozempic and the intended gradual dose escalation to assess tolerance and effectiveness. The patient acknowledged the importance of monitoring for side effects. We discussed dietary changes necessary for improving blood glucose levels and obesity management. Current follow-up is scheduled in three months for a comprehensive review of diabetes management. I scheduled an eye examination for the upcoming fall to monitor potential diabetic retinopathy. Patient Instructions - Begin Ozempic as prescribed; follow dosing schedule given. - Monitor blood glucose regularly at home. - Aim to improve diet; focus on reducing carbohydrate intake. - Schedule and attend the upcoming eye exam in the fall. - Return for follow-up in three months for evaluation of diabetes management. - Notify immediately if experiencing any concerning side effects or symptoms related to diabetes. [facility] Medical History Suicidal ideation Schizo affective schizophrenia Surgical History S/P tonsillectomy S/P panniculectomy Social History Housing: House Patient Tobacco Use Status: Former Tobacco user Cigarettes Per Day: 4 e-Cigarette/Vaping Use: Currently Using Second Hand Smoke Exposure: No service: No Current occupational status: employed Cognitive needs: No Hearing needs: No Vision needs: No Questionnaire PHQ-9 Over the last 2 weeks, how often have you been bothered by any of the following problems? 1. Little interest or pleasure in doing things: several days 2. Feeling down, depressed, or hopeless: several days 3. Trouble falling or staying asleep, or sleeping too much: several days 4. Feeling tired or having little energy: several days 5. Poor appetite or overeating: more than half the days 6. Feeling bad about yourself - or that you are a failure or have let yourself or your family down: several days 7. Trouble concentrating on things, such as reading the newspaper or watching television: several days 8. Moving or speaking so slowly that other people could have noticed. Or the opposite - being so fidgety or restless that you have been moving around a lot more than usual: not at all 9. Thoughts that you would be better off or of hurting yourself in some way: not at all Total score: 8 Depression Screening Interpretation: Positive Depression Screening Done: Yes 19970 - PHQ-9 Billing: Yes Source: Developed by Drs. Ld Miller, Talia Gu, Isaac Hooks and colleagues, with an educational alfonso from [employer]. Thrive Questionnaire Date Thrive assessed: 08/04/24 I am a: Parent/Caregiver What is your living situation today?: I have a steady place to live Within the past 12 months, did the food you bought not last and you didn't have the money to get more?: Sometimes True Within the past 12 months, did you worry whether your food would run out before you got money to buy more?: Sometimes True Do you have trouble paying for medicines?: No Do you have trouble getting transportation to medical appointments?: No Do you have trouble paying your heating and electricity bill?: Yes Do you have trouble taking care of your child, family member or friend?: No Do you have trouble with day-to-day activities such as bathing, preparing meals, shopping, managing finances, etc.?: No Are you currently unemployed and looking for a job?: No Are you interested in more education?: No Please select the resources that you would like help with: Food and Utilities Currently or been in a relationship where the following occur: No concerns reported THRIVE Score: 3 AUDIT C Alcohol Use Questionnaire (AUDIT-C) 1. How often do you have a drink containing alcohol?: Never 3. How often do you have six or more drinks on one occasion?: Never Total Score: 0 Score Reviewed/Action Taken: Yes KATIE-7 AMB Questionnaire KATIE-7 Date KATIE - 7 assessed: 08/04/24 Feeling nervous, anxious, or on edge: 2 = More than half the days Not being able to stop or control worryin = Several days Worrying too much about different things: 2 = More than half the days Trouble relaxin = Several days Being so restless that it is hard to sit still: 1 = Several days Becoming easily annoyed or irritable: 0 = Not at all Feeling afraid as if something awful might happen: 0 = Not at all Total KATIE-7 score (0-4 normal; 5-9 mild; 10-14 moderate; 15-21 severe): 7 Source: Developed by Drs. Ld Miller, Talia Gu, Isaac Hooks and colleagues, with an educational alfonso from [employer]. KATIE-7 Assessment Billing KATIE-7 Assessment Tool: KATIE-7 Assessment 68250 Physical exam (Primary Care) Vital Signs: Last Vital Signs Pulse 76 08/04/24 14:03 BP 124/80 08/04/24 14:03 Pulse Ox 98 08/04/24 14:03 Oxygen Delivery Method Room Air 08/04/24 14:03 BMI result Body Mass Index 38.3 Tobacco/Smoking Status: Tobacco use Status Tobacco use date assessed 08/04/24 08/04/24 14:07 Patient Tobacco Use Status Former Tobacco user 08/04/24 14:07 e-Cigarette/Vaping Use Currently Using 08/04/24 14:07 PHQ-9: PHQ-9 Score PHQ-9: Total score 8 08/04/24 14:54 Depression Screening Interpretation: Positive Thrive Assessment: Date of Thrive Assessment Date Thrive assessed 08/04/24 08/04/24 14:07 Currently or been in a relationship where the following occur: No concerns reported Results AMB Hemoglobin A1c AMB Hemoglobin A1c 9.1 % Last Edit by Jun Blackman CMA on 08/04/24 14:27 Results Reviewed Results Reviewed: Laboratory Last Values Hgb A1c (Clinic) 9.1 % (4.0-6.0) H 08/04/24 14:13 Coding Level of Care Code Est Pt Level 3 (62172) Diagnoses Elevated liver enzymes R74.8 Diabetes E11.9 Additional Codes KATIE-7 Assessment Billing - KATIE-7 Assessment Tool: KATIE-7 Assessment 47578 ([id number]) PHQ-9 - 64555 - PHQ-9 Billing: Yes ([id number]) Assessment & Plan Assessment & Plan (1) Elevated liver enzymes: Code(s): R74.8 - Abnormal levels of other serum enzymes Category: Medical (2) Diabetes: Code(s): E11.9 - Type 2 diabetes mellitus without complications Category: Medical Plan . Orders: Orders US abdomen complete 08/04/24 R74.8 - Abnormal levels of other serum enzymes Hepatitis A,B,C Profile 08/04/24 R74.8 - Abnormal levels of other serum enzymes Comprehensive [place]. Panel Fast 08/04/24 R74.8 - Abnormal levels of other serum enzymes AMB Hemoglobin A1c 08/04/24 Z13.9 - Encounter for screening, unspecified Complete Blood Count Auto Diff 08/04/24 R74.8 - Abnormal levels of other serum enzymes Medications: New semaglutide (Ozempic) for 4 weeks 0.25 mg (0.368 mL) subcut QWEEK 3 mL 0RF
== END 2024-08-04 15:02 | disposition home or self-care (01) ==
PROVIDERS: PCP Nurse Practitioner Family; Visit Provider Nurse Practitioner Family
DX: R74.8 Abnormal levels of other serum enzymes (principal); E11.9 Type 2 diabetes mellitus without complications

== ENCOUNTER → 2024-08-04 13:52 | Outpatient (BNVA) | payer OTHER, SELFPAY | PROVIDERS: PCP Nurse Practitioner Family; Visit Provider Nurse Practitioner Family | DX: R74.8 Abnormal levels of other serum enzymes (principal); E11.9 Type 2 diabetes mellitus without complications | CPT/HCPCS: 83036; 96127; 99212 ==

== ENCOUNTER 2024-11-04 13:32 | Outpatient (AMB) | payer OTHER, SELFPAY ==
--- NOTE | 2024-11-04 13:38 | A.OFFPC_ITS ---
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 Accompanied by: Self / Same As Patient Allergies cefaclor [From Ceclor] Allergy (Mild, Verified 11/04/24 13:46) Rash sulfamethoxazole [From Bactrim] Allergy (Mild, Verified 11/04/24 13:46) Rash trimethoprim [From Bactrim] Allergy (Mild, Verified 11/04/24 13:46) Rash metformin Adverse Reaction (Intermediate, Verified 11/04/24 13:46) Nausea cillins Allergy (Intermediate, Uncoded 06/12/24 08:24) Anaphylaxis Medication List - Last Reconciled 11/04/24 by Luis Rojas, [facility]- aripiprazole 5 mg PO DAILY atorvastatin 10 mg PO BEDTIME 90 days blood sugar diagnostic (FreeStyle Lite Strips) tid testing blood-glucose meter (FreeStyle Lite Meter kit) TID testing bupropion HCl XL 150 mg PO DAILY empagliflozin (Jardiance) 25 mg PO DAILY lamotrigine 50 mg PO DAILY lancets (FreeStyle Lancets) TID testing losartan 25 mg PO DAILY 90 days paliperidone palm (3 month) (Invega Trinza) mg IM tirzepatide (Mounjaro) 2.5 mg (0.5 mL) subcut QWEEK Tobacco use date assessed: 11/04/24 Dental Screening Dental Screen Date: 11/04/24 Did you have a dental visit in the last 12 months?: No Did you have a dental problem in the last 6 months where you did not have access to dental care?: No Was dental information given to patient?: Yes HPI 3m follow up HPI Details Chief Complaint The patient is here for a follow-up regarding his diabetes management. History of Present Illness The patient is a 38-year-old male presenting with follow-up for diabetes mellitus. He reports persistent challenges with maintaining his medication regimen due to availability and insurance complications, particularly concerning the GLP-1 agonist therapy. Recently, Mounjaro has been deemed covered by insurance, making it a feasible option for future management. Non-adherence to Jardiance therapy has contributed to his A1c level of 10.8%, an indicator of suboptimal glycemic control. The patient confirms that his vaccinations are up-to-date and recalls having had an eye examination less than a year ago, with a subsequent exam scheduled for the summer or fall. He denies peripheral neuropathic symptoms, infection-like symptoms such as fever and chills, along with cardiorespiratory symptoms like chest pain and breathlessness. Additionally, he reports no polyuria or polydipsia. A recent monofilament test confirmed preserved sensation in his feet. The patient's clinical presentation signifies the implications of morbid obesity on his overall diabetes management. Social History - No specific social determinants of hea lth discussed. Health Maintenance - Immunizations are up-to-date. - Recent (within a year) eye examination ; follow-up due in summer/fall. - Diabetic foot assessment with monofila ment test shows intact sensation. Review of Systems - General: Denies fever and chills. - Cardiovascular/Respiratory: Denies omid st pain and shortness of breath. - Genitourinary: Denies polyuria and khoa ydipsia. - Neurological: Reports positive sensati on bilaterally in feet; denies n europathy. Physical Exam General: Cooperative, healthy appearing, comfortable, no acute distress and well developed, morbidly obese Orientation: Patient oriented x3 Limitations: No limitations Head: Normal to inspection Ears: Hearing grossly normal bilaterally Nose: Normal external nose present Face and sinus: Normal facial exam Eyes: Appearance normal, both eyes and all related structures Neck: Normal visual inspection and Yes full ROM Respiratory: Normal respiratory effort and able to speak in complete sentences. Clear to auscultation bilaterally Cardiovascular: Regular rate and rhythm. Normal S1 and S2 GI: Normal to inspection. Soft to palpation and nontender Skin: No rashes or lesions noted Neuro: Patient oriented x3 Extremities: Normal to inspection, positive sensation with use of monofilament, feet were intact bilaterally Results - Labs: Glycated hemoglobin (A1c) level at 10.8%. Plan 1. 8%. Mounjaro will be prescribed due t o insurance coverage. Re-initiation of Jardiance will involve titrating from half a tablet to a full tablet over two weeks. Emphasis on medication adherence was conveyed. Goals include achieving better glycemic control. Follow-up includes monitoring potential complications like neuropathy and cardiovascular issues. Eye exam and immunizations are current and due continued adherence is stressed to manage diabetes more effectively.: Discussion Notes I discussed with the patient that his current A1c level of 10.8% necessitates an adjustment in his diabetes management plan. He was advised on the initiation of Mounjaro, as insurance coverage is established. Regarding Jardiance, plans were made to resume therapy, starting with a half tablet and increasing to a full tablet to stabilize glucose levels. The importance of medication adherence and timing was highlighted to prevent further complications. Risk monitoring for neuropathy and cardiovascular symptoms, alongside immunization adherence and scheduled eye exams, were confirmed. The patient understood the plan, including the risks and benefits involved, and agreed to proceed as discussed. Patient Instructions - Start Mounjaro as prescribed. - Take half a tablet of Jardiance, incre asing to a full tablet after two weeks. - Stay current with your immunizations. - Schedule your eye exam for the summer or fall. - Report any signs of neuropathy, such a s numbness or tingling in your feet, to our office. - Contact our office if experiencing any chest pain or breathing difficulties. [facility] Medical History Suicidal ideation Schizo affective schizophrenia Surgical History S/P cholecystectomy S/P tonsillectomy S/P panniculectomy Social History Housing: House Patient Tobacco Use Status: Former Tobacco user Cigarettes Per Day: 4 e-Cigarette/Vaping Use: Currently Using Second Hand Smoke Exposure: No service: No Current occupational status: employed Cognitive needs: No Hearing needs: No Vision needs: No Questionnaire PHQ-9 Over the last 2 weeks, how often have you been bothered by any of the following problems? 1. Little interest or pleasure in doing things: several days 2. Feeling down, depressed, or hopeless: several days 3. Trouble falling or staying asleep, or sleeping too much: not at all 4. Feeling tired or having little energy: several days 5. Poor appetite or overeating: more than half the days 6. Feeling bad about yourself - or that you are a failure or have let yourself or your family down: several days 7. Trouble concentrating on things, such as reading the newspaper or watching television: several days 8. Moving or speaking so slowly that other people could have noticed. Or the opposite - being so fidgety or restless that you have been moving around a lot more than usual: not at all 9. Thoughts that you would be better off or of hurting yourself in some way: not at all Total score: 7 Depression Screening Interpretation: Negative Depression Screening Done: Yes 63031 - PHQ-9 Billing: Yes Source: Developed by Drs. Ld Miller, Talia Gu, Isaac Hooks and colleagues, with an educational alfonso from [employer]. Thrive Questionnaire Date Thrive assessed: 08/04/24 I am a: Parent/Caregiver What is your living situation today?: I have a steady place to live Within the past 12 months, did the food you bought not last and you didn't have the money to get more?: Sometimes True Within the past 12 months, did you worry whether your food would run out before you got money to buy more?: Sometimes True Do you have trouble paying for medicines?: No Do you have trouble getting transportation to medical appointments?: No Do you have trouble paying your heating and electricity bill?: Yes Do you have trouble taking care of your child, family member or friend?: No Do you have trouble with day-to-day activities such as bathing, preparing meals, shopping, managing finances, etc.?: No Are you currently unemployed and looking for a job?: No Are you interested in more education?: No Currently or been in a relationship where the following occur: No concerns reported THRIVE Score: 3 AUDIT C Alcohol Use Questionnaire (AUDIT-C) 1. How often do you have a drink containing alcohol?: Never 3. How often do you have six or more drinks on one occasion?: Never Total Score: 0 Score Reviewed/Action Taken: Yes KATIE-7 AMB Questionnaire KATIE-7 Date KATIE - 7 assessed: 11/04/24 Feeling nervous, anxious, or on edge: 1 = Several days Not being able to stop or control worryin = Several days Worrying too much about different things: 1 = Several days Trouble relaxin = Several days Being so restless that it is hard to sit still: 0 = Not at all Becoming easily annoyed or irritable: 0 = Not at all Feeling afraid as if something awful might happen: 1 = Several days Total KATIE-7 score (0-4 normal; 5-9 mild; 10-14 moderate; 15-21 severe): 5 Source: Developed by Drs. Ld Miller, Talia Gu, Isaac Hooks and colleagues, with an educational alfonso from [employer]. KATIE-7 Assessment Billing KATIE-7 Assessment Tool: KATIE-7 Assessment 81736 Physical exam (Primary Care) Vital Signs: Last Vital Signs Temp 98.6 F 11/04/24 13:43 Pulse 84 11/04/24 13:43 BP 120/70 11/04/24 13:43 Pulse Ox 94 11/04/24 13:43 Oxygen Delivery Method Room Air 11/04/24 13:43 BMI result Body Mass Index 36.6 Tobacco/Smoking Status: Tobacco use Status Tobacco use date assessed 11/04/24 11/04/24 13:51 Patient Tobacco Use Status Former Tobacco user 11/04/24 13:51 e-Cigarette/Vaping Use Currently Using 11/04/24 13:51 PHQ-9: PHQ-9 Score PHQ-9: Total score 7 11/04/24 13:58 Depression Screening Interpretation: Negative Thrive Assessment: Date of Thrive Assessment Date Thrive assessed 08/04/24 11/04/24 13:51 Currently or been in a relationship where the following occur: No concerns reported Results AMB Hemoglobin A1c AMB Hemoglobin A1c 10.8 % Last Edit by Jun Blackman CMA on 11/04/24 14 :01 Coding Level of Care Code Est Pt Level 3 (32968) Diagnoses Diabetes E11.9 Additional Codes KATIE-7 Assessment Billing - KATIE-7 Assessment Tool: KATIE-7 Assessment 71944 ([id number]) PHQ-9 - 71854 - PHQ-9 Billing: Yes ([id number]) Assessment & Plan Assessment & Plan (1) Diabetes: Code(s): E11.9 - Type 2 diabetes mellitus without complications Category: Medical Plan . Orders: Orders Complete Blood Count Auto Diff Today E11.9 - Type 2 diabetes mellitus without complications TSH reflex Free T4 Today E11.9 - Type 2 diabetes mellitus without complications UA CC w/rflx Micro + Cult Today E11.9 - Type 2 diabetes mellitus without complications AMB Hemoglobin A1c Today Z13.9 - Encounter for screening, unspecified Comprehensive [place]. Panel Fast Today E11.9 - Type 2 diabetes mellitus without complications Lipid Panel Today E11.9 - Type 2 diabetes mellitus without complications Referrals Endocrinology Referral E11.9 - Type 2 diabetes mellitus without complications Medications: New tirzepatide (Mounjaro) for 4 weeks 2.5 mg (0.5 mL) subcut QWEEK 2 mL 0RF Refilled empagliflozin (Jardiance) 25 mg PO DAILY 90 tabs 0RF
[2024-11-04 13:43] VITALS: BP 120/70; PULSE 84; TEMP 37; O2SAT 94; BMI 36.6
--- OUTSIDE RECORDS SUMMARY | 2024-11-04 14:46 | XMS_ITS | Data Portability ---
Author Organization [facility], [facility] Address [address] [place] [address] Assessment Encounter Date Assessment Date Assessment LastModified [...] plan for this patient? s care today. [email or web address] Not available 02/25/2021 17:13:12 Plan of Treatment Reminders Order Date Submit Date Provider Last Modified By Organization Details Last Modified Time Details Appointments None recorded. Lab None recorded. Referral dermatolog ist referral - Worsening Hydradenit is despite systemic antibiotic s 2020 021 RENAE Crooks MD, [address] [place] [address] Rd, Professional 2d, [place]ENAT Montaño, [address], 14:31:16 Procedures None recorded. Surgeries None recorded. Imaging None recorded. Medication Orders cyclobenza grzegorz 10 mg tablet 2020 021 socorro [facility]/Pharmacy #[id number], [address] [place], [address], 10:50:58 cyclobenza grzegorz 10 mg tablet 2020 021 [id number] [address] [facility] [place], [address], 12:00:33 clindamyci n 1 % topical gel 2020 021 [email or web address] [id number] [address] [facility] [place], [address], 12:00:50 clindamyci n HCl 300 mg capsule 2020 021 [id number] [address] [facility] [place], [address], 15:53:19 rifampin 300 mg capsule 2020 021 [id number], [address] [place], [address], 15:53:19 doxycyclin e hyclate 100 mg capsule 2020 021 [facility]/Ph[facility]acy #[id number], [address] [facility] [place], [address], 10:20:49 Patient TargetsNo targets recorded. Patient Instructions Encounter Date Encounter Id Patient Instructions Last Modified By Organization Details Last Modified Time 02/02/2021 [id number] Counseling done {{Patient not ready to quit [...] sponsor}}My Health To Do List {{go to WorldWinger www.MSI or call si gn up for robbie text 2 quit or other stop smoking robbie contact smokefree.gov}} {{go to Intuit or call si gn up for robbie text 2 quit or other stop smoking robbie contact PathoQuest.gov}} {{go to Intuit or call si gn up for robbie text 2 quit or other stop smoking robbie contact PathoQuest.gov}} Not available 02/02/2021 07:46:45 02/21/2021 [id number] deciding about using medicines to quit smoking [email or web address] Not available 02/21/2021 10:41:08 Quitting Tobacco : Care Instructions [email or web address] Not available 02/21/2021 10:41:08 The care for [...] plan for this patient? s care today. [email or web address] Not available 02/21/2021 10:44:02 Counseling done {{Patient [...] sponsor}}My Health To Do List {{go to Intuit or call si gn up for robbie text 2 quit or other stop smoking robbie contact PathoQuest.gov}} {{go to Intuit or call si gn up for robbie text 2 quit or other stop smoking robbie contact PathoQuest.gov}} {{go to Intuit or call si gn up for robbie text 2 quit or other stop smoking robbie contact PathoQuest.gov}} [email or web address] Not available 02/21/2021 10:21:19 03/10/2021 [id number] Counseling done {{Patient not ready to quit [...] sponsor}}My Health To Do List {{go to Intuit or call si gn up for robbie text 2 quit or other stop smoking robbie contact smokeHealth Gorilla.gov}} {{go to Intuit or call si gn up for robbie text 2 quit or other stop smoking robbie contact smokeHealth [place].gov}} {{go to Intuit or call si gn up for robbie text 2 quit or other stop smoking robbie contact [employer]oQuest.Enmotus}} [email or web address] Not available 03/10/2021 11:49:27 03/17/2021 [id number] healthy upper back: exercises [email or web address] Not available 03/17/2021 10:56:10 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 Referral for H idradenitis suppurativa Worsening Hydradenitis despite systemic antibiotics Referring Physician: Raj Galarza, Family Medicine, Encounter Date: 02/25/2021 Problems Name Problem SNOMED Code Status Onset Date Resolution Date Notes Provider Name and Address Organization Details Recorded Time Diabetes mellitus 11506422 Completed 201503/28/2019 Ruth Ann young [facility] 9 08:55:51 Schizoaf fective disorder 73126223 Active 2016 Stiven Whitley PA-C [address] [place] [address], , [facility] 7 16:26:06 Tobacco user 433806301 Completed 201710/14/2018 Betsy Mcneal NP [address] [place] [address], , [facility] 9 16:06:19 Benign essentia l hyperten brittnee 5503738 Completed 201703/01/2018 Sohail Hassan Jr. MD [address] [place] [address], , [facility] 8 12:40:48 Proteinu juan 35635220 Active 2017 Stiven Whitley PA-C [address] [place] [address], , [facility] 8 15:32:45 Renal disorder due to type 2 diabetes mellitus 493301029 Completed 201803/28/2019 Mable Alcantara MD [address] [place] [address], , [facility] 9 09:28:03 Cigarett e smoker 53361189 Active 2018 Betsy Mcneal NP [address] [place] [address], , [facility] 9 16:06:12 Diabetes mellitus 87028604 Active 2018 [facility] 08:55:51 Uncontro lled type 2 diabetes mellitus 437035098 Active 2020 Jacqui Vega PA-C [address] [place] [address], , [facility] 1 08:06:43 Hidraden itis suppurat fede 38472060 Active 2020 RAJ Carrillo MD [address] [place] [address], , [facility] 1 12:41:15 Morbid obesity 846346245 Active 10/11/ 2022 BMI > or = 35 plus diagnosi s of diabetes . PETRA Hussein, [facility] 2 08:00:44 Headache 43020861 Completed 200006/22/2016 Stiven Whitley PA-C [address] [place] [address], [address] , [facility] 7 09:04:03 Obesity 171732472 Completed 03/28/2022 Annabel Welch LPN null, [facility] 2 08:00:13 Major depressi on, melancho lic type 861417911 Completed 05/11/2019 Mable Alcantara MD [address] [place] [address], [phone] , [facility] 9 13:43:57 Neck pain 25819741 Completed 199905/07/2013 Not Available [facility] 3 02:00:34 Disorder of upper respirat ory system 535054750 Completed 200005/07/2013 Not Available [facility] 3 02:03:48 Problem Notes None recorded. Procedures Surgical History Date Name Laterality Status Provider Name and Address Organization Details Recorded Time 01/01/20 21 Smoking cessation counseling completed Silvia Macdonald [facility] 12/31/2020 14:26:25 01/01/20 21 Smoking cessation counseling cancelled Silvia Macdonald [facility] 12/31/2020 13:30:30 01/01/20 21 Carbon Monoxide Testing cancelled Silvia Macdonald [facility] 12/31/2020 13:30:30 02/10/20 20 63336: Therapeutic Exercise cancelled Jerrell Mar PT [address] [place] [address], [phone], [facility] 02/10/2020 14:31:26 02/03/20 20 13246: Therapeutic Exercise completed Jerrell Mar PT [address] [place], [address], [facility] 02/04/2020 15:39:51 01/27/20 20 Physical Activity Counselling completed Jerrell Mar PT [address] [place], [address], [facility] 01/27/2020 14:08:37 01/27/20 20 25272: PT Ayanna, Moderate Complexity completed Jerrell Mar, PT [address] [place] [address], [address], [facility] 01/27/2020 14:08:40 01/21/20 20 Smoking cessation counseling completed Leslie Turk [facility] 01/21/2020 13:49:26 09/02/19 20 Smoking cessation counseling completed Sohail Hassan Jr. MD [address] [place] [address], [phone], [facility] 09/03/2019 05:17:21 02/08/20 19 Smoking cessation counseling completed Sohail Hassan Jr. MD [address] [place] [address], [phone], [facility] 02/09/2019 09:55:50 02/01/20 19 Smoking cessation counseling completed Lelia Young MD [address] [place] [address], [phone], [facility] 01/31/2019 13:03:40 02/01/20 19 Carbon Monoxide Testing completed Lelia Young MD [address] [place] [address], [phone], [facility] 01/31/2019 13:03:40 02/01/20 19 POC HA1C completed TRAVIS Gutierrez [facility] 01/31/2019 13:01:08 10/15/19 19 Smoking cessation counseling completed Aliza Bhat [facility] 10/14/2018 14:43:25 09/10/19 19 Smoking cessation counseling completed Zakiya Lane LPN [facility] 09/09/2018 12:54:43 07/08/19 19 Smoking cessation counseling completed Sohail Hassan Jr. MD [address] [place] [address], [phone], [facility] 07/09/2018 05:06:04 03/01/20 18 Smoking cessation counseling completed Elaine Quinonez MA [facility] 03/01/2018 09:10:24 03/01/20 18 Carbon Monoxide Testing completed Elaine Quinonez MA [facility] 03/01/2018 09:10:25 03/01/20 18 Diabetic Retinal Exam completed Roslyn Aguirre LPN [facility] 03/04/2018 09:58:19 02/07/20 18 Smoking cessation counseling completed Shantell Mariscal MA [facility] 02/06/2018 12:59:57 02/07/20 18 Carbon Monoxide Testing completed Shantell Mariscal MA [facility] 02/06/2018 12:59:57 12/04/19 18 Smoking cessation counseling completed Talia Watts MA [facility] 12/03/2017 15:44:21 12/04/19 18 Carbon Monoxide Testing completed Talia Watts MA [facility] 12/03/2017 15:44:21 11/07/19 18 Smoking cessation counseling completed HEAVENLY Soto [address] [place] [address], [address], [facility] 11/06/2017 12:57:34 11/07/19 18 Carbon Monoxide Testing completed HEAVENLY Soto [address] [place] [address], [address], [facility] 11/06/2017 12:57:34 09/14/19 18 Smoking cessation counseling completed Talia Watts MA [facility] 09/13/2017 11:06:55 09/14/19 18 Carbon Monoxide Testing completed Talia Watts MA [facility] 09/13/2017 11:06:55 09/14/19 18 POC Urinalysis Testing completed Talia Watts MA [facility] 09/13/2017 11:08:30 07/27/19 18 Smoking cessation counseling completed Prabha Son LPN [facility] 07/27/2017 08:45:12 07/27/19 18 Carbon Monoxide Testing completed Prabha Son LPN [facility] 07/27/2017 08:45:12 04/03/20 17 Smoking cessation counseling completed TRAVIS Romo [facility] 04/03/2017 14:59:49 04/03/20 17 Carbon Monoxide Testing completed TRAVIS Romo [facility] 04/03/2017 14:59:49 03/08/20 17 Smoking cessation counseling completed Saritha Kruse [facility] 03/08/2017 15:51:38 03/08/20 17 Carbon Monoxide Testing completed Saritha Kruse [facility] 03/08/2017 15:51:38 09/12/19 17 Smoking cessation counseling completed Talia Watts MA [facility] 09/11/2016 08:59:57 09/12/19 17 Carbon Monoxide Testing completed Talia Watts [facility] 09/11/2016 09:06:03 08/02/19 17 Smoking cessation counseling completed Talia Watts [facility] 08/02/2016 13:49:57 08/02/19 17 Carbon Monoxide Testing completed Talia Watts [facility] 08/02/2016 14:02:46 06/22/19 17 Smoking cessation counseling completed Talia Watts [facility] 06/22/2016 08:55:11 06/22/19 17 Carbon Monoxide Testing completed Talia Watts [facility] 06/22/2016 08:58:07 05/03/20 16 Smoking cessation counseling completed Stiven Whitley PA-C [address] [place] [address], [address], [facility] 05/03/2016 09:56:53 02/08/20 16 Smoking cessation counseling completed Jurgen Whitehead LPN [facility] 02/08/2016 14:45:40 02/08/20 16 Carbon Monoxide Testing completed Jurgen Whitehead LPN [facility] 02/08/2016 14:58:52 07/23/19 15 Smoking cessation counseling completed Talia Watts [facility] 07/23/2014 11:08:07 05/14/20 13 Smoking cessation counseling completed Lory Arreguin [facility] 05/14/2013 09:21:01 08/13/19 13 Smoking cessation counseling completed Sukumar Chavez [facility] 08/13/2012 09:18:46 02/15/20 12 Smoking cessation counseling completed Chidi Mcallister MD [address] [place] [address], [phone], [facility] 02/15/2012 11:52:15 06/13/20 11 Smoking cessation counseling completed Karly Cobos MA [facility] 06/13/2011 14:04:49 02/04/20 11 vasectomy/Esric k completed Mabel Mckenna [facility] 02/03/2011 15:00:52 Imaging Results None recorded. Procedure Notes None recorded. Medical Equipment None Reported. Allergies Allergen ID Allergen Name Allergen Category Reaction Reaction Severity Criticality Documentation Date Start Date Code Code System Note Provider Name and Address Organization Details Recorded Time 009796 risperido ne medicatio n Not available Not available Not available 05/14/2013 52650 RxNorm ?seiz ure activ ity 04/30 Stiven Whitley PA-C [address] [place] [address], [place], [address], [facility] 3 09:35:56 69733 Product containin g penicilli n (product) medicatio n anaphylax is Not available Not available 05/25/2009 70465 8001 SNOMED Not Available [facility] 1 06:05:20 92967 amoxicill in medicatio n anaphylax is Not available Not available 05/25/2009 723 RxNorm Not Available [facility] 1 06:05:20 778789 Ceclor medicatio n Not available Not available Not available 05/03/2016 24642 5 RxNorm TRAVIS Romo, [facility] 6 09:37:43 86245 Bactrim medicatio n rash Not available Not available 02/08/2011 48931 9 RxNorm Not Available [facility] 1 06:05:41 Medications Name Sig Start Date [...] active Is waiting for a call from [facility] for an intake appt. Last PHA 06/19 [...] Ultra-Fin e 0.3 mL 31 gauge x 10/31 use to inject INSULIN once daily in THE AM active Not Available Not Available No t Available Vitals Date Recorded Body height Body mass index (BMI) Body weight Oxygen saturation Oxygen saturation in Arterial blood by Pulse oximetry Heart rate Systolic blood pressure Diastolic blood pressure Provider Name and Address Organization Details Last Updated DateTime 1 161.29 cm 37.8 kg/m2 83403.5 4 g 97 % 97 % 87 /min 120 mm[Hg] 90 mm[Hg] Shantell Mariscal [facility] 1 07:49:57 Date Recorded Systolic blood pressure Diastolic blood pressure Provider Name and Address Organization Details Last Updated DateTime 02/02/2021 138 mm[Hg] 86 mm[Hg] Jacqui Vega PA-C [address] [place] [address], [phone], [facility] 02/02/2021 08:03:30 Date Recorded Body height Body mass index (BMI) Body weight Systolic blood pressure Diastolic blood pressure Provider Name and Address Organization Details Last Updated DateTime 02/21/2021 161.29 cm 37.7 kg/m2 52684.35 g 124 mm[Hg] 76 mm[Hg] Ryann Almonte [facility] 1 10:23:14 Date Recorded Body height Body mass index (BMI) Body weight Oxygen saturation Oxygen saturation in Arterial blood by Pulse oximetry Heart rate Systolic blood pressure Diastolic blood pressure Provider Name and Address Organization Details Last Updated DateTime 1 161.29 cm 37.2 kg/m2 72488.5 7 g 97 % 97 % 102 /min 136 mm[Hg] 90 mm[Hg] Lashaun Pham LPN [facility] 1 15:29:48 Date Recorded Body height Body mass index (BMI) Body weight Heart rate Systolic blood pressure Diastolic blood pressure Provider Name and Address Organization Details Last Updated DateTime 1 161.29 cm 36.6 kg/m2 02328.4 g 88 /min 98 mm[Hg] 60 mm[Hg] Dagoberto Augustin [facility] 1 11:51:32 Date Recorded Body height Body mass index (BMI) Body weight Systolic blood pressure Diastolic blood pressure Provider Name and Address Organization Details Last Updated DateTime 03/17/2021 161.29 cm 36.6 kg/m2 28478.4 g 124 mm[Hg] 80 mm[Hg] Elaine Quinonez MA [facility] 1 10:33:41 Social History Question Answer Notes LastModified by Organizat ion Details LastModified Time Tobacco Smoking Status Current Every Day Smoker 06/21 PPD Not Available [facility] 11/10/2010 02:08:28 Do You Have An Advance Directive? No Given Form @ [facility] On 05/27/2009, 06/19/13 [email or web address] Information not available 05/27/2009 Do You Wear A Helmet When Biking? No Information not available 08/26/2015 How Much Tobacco Do You Chew? None [email or web address] Information not available 05/04/2011 What Type Of Diet Are You Following? REGULAR DBA_PATCH_ [email or web address] Information not available 05/04/2011 Which Illicit Or Recreational Drugs Have You Used? MJ Weekly Past Hx Of Percocet Abuse/nasal Heroin. No Hx IVDA [email or web address] Information not available 04/07/2010 Education 12 [employer]-migue [place] 04/01 Information not available 07/23/2014 How Many Days In The Past Year Have You Had A Heavy Drinking Consumption (4+ Female, 5+ Male)? 0 [email or web address] Information not available 08/13/2012 Are There Any Guns Present In Your Home? No DBA_PATCH_ [email or web address] Information not available 05/04/2011 Live Alone Or With Others? With Others Parents. Partial Custody Of Kids Information not available 06/19/2013 Patient Has Health [...] mation not available 02/14/2016 Marital Status '15 Informatio n not available 07/23/2014 Mosquito Repellent Used Routinely Yes Information not available 08/26/2015 What Was The Date Of Your Most Recent Tobacco Screening? 02/21/2021 [email or web address] Information not available 02/21/2021 How Many Children [...] Smoking Tobacco? 18 Information not available 07/23/2014 How Much Tobacco Do You Smoke? 0.25 PPD Information not available 09/02/2019 General Stress Level Medium Information not available 02/14/2016 Do You Use Sunscreen Routinely? Yes [email or web address] Information not available 05/04/2011 How Many Years Have You Smoked Tobacco? 25 Smoked Since Age 18 [email or web address] Information not available 02/07/2019 Sex: Unknown Functional Status Question Answer Note LastModified by Organizat ion Details LastModified Time What is your level of alcohol consumption? None <1/month. had some trouble w/etoh early 20s Information not available 08/02/2016 Do you or have you ever used smokeless tobacco? 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 Former user of electronic cigarettes not current 12/31/2019 tmg Information not available 01/31/2019 Mental Status None recorded. 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 non-sm oker [...] virus, trivalent, preservative 1 completed Not Available [facility] 07/05/2019 02:18:31 OPV 6 completed Not Available [facility] 05/03/2011 05:22:13 Td(adult) unspecified formulation 0 completed Not Available [facility] 05/03/2011 05:22:13 Hep B, unspecified formulation 7 completed Not Available [facility] 05/03/2011 05:22:13 OPV 6 completed Not Available [facility] 05/03/2011 05:22:41 Hep B, unspecified formulation 7 completed Not Available [facility] 05/03/2011 05:22:13 OPV 8 completed Not Available [facility] 05/03/2011 05:22:13 DTP 6 completed Not Available [facility] 05/03/2011 05:22:13 OPV 0 completed Not Available [facility] 05/03/2011 05:22:13 MMR 1 completed Not Available [facility] 05/03/2011 05:22:13 DTP 6 completed Not Available [facility] 05/03/2011 05:22:13 MMR 7 completed Not Available [facility] 05/03/2011 05:22:13 DTP 7 completed Not Available [facility] 05/03/2011 05:22:13 Hep B, unspecified formulation 8 completed Not Available [facility] 05/03/2011 05:22:13 Hib, unspecified formulation 8 completed Not Available [facility] 05/03/2011 05:22:13 DTP 8 completed Not Available [facility] 05/03/2011 05:22:13 DTP 1 completed Not Available [facility] 05/03/2011 05:22:41 Novel [id number] 9 completed Not Available [facility] 07/05/2019 02:28:15 Td (adult), 5 Lf tetanus toxoid, preservative free, adsorbed 9 completed Not Available [facility] 07/05/2019 02:36:22 influenza, unspecified formulation 0 completed Not Available [facility] 05/03/2011 05:22:41 Influenza, split virus, trivalent, PF 4 completed Not Available [facility] 07/05/2019 02:36:26 Influenza, split virus, quadrivalent, PF 5 completed Not Available [facility] 07/05/2019 02:26:43 pneumococcal polysaccharide PPV23 6 completed Not Available [facility] 07/05/2019 02:20:41 Influenza, split virus, quadrivalent, PF 6 completed Not Available [facility] 07/05/2019 02:33:42 Influenza, split virus, quadrivalent, PF 8 completed Not Available [facility] 07/05/2019 02:22:59 pneumococcal polysaccharide PPV23 0 [facility] 10:46:18 COVID-19, mRNA, LNP-S, PF, 30 mcg/0.3 mL dose 1 completed ZEENAT Keita [facility] 02/02/2021 07:48:06 COVID-19, mRNA, LNP-S, PF, 30 mcg/0.3 mL dose 1 [facility] 02/02/2021 07:48:18 Past Encounters Encounter ID Performer Location Encounter Start Date Encounter Closed Date Diagnosis/Indication Diagnosis SNOMED-CT Code Diagnosis ICD10 Code Diagnosis Note [id number] Samara Adams MD Radiology , [address] [address] 08/23/2000 16:30:00 07/08/2008 02:02:29 [id number] [facility] , [address] [address] 04/19/2000 13:30:00 07/08/2008 02:02:29 [id number] DAVE Magana, [facility] [place] [address] [place] [id number] 05/25/2009 09:42:40 05/25/2009 10:40:44 [id number] DAVE Magana, [facility] [place] [address] [place] [id number] 05/27/2009 08:10:52 05/27/2009 09:44:16 [id number] Jerrell Colbert MD , [facility], [address] [facility] [place] [address] 01/14/2010 13:25:53 01/17/2010 10:45:55 [id number] Debi Cedeno MD , [facility], [address] [facility] [place] [address] 04/07/2010 10:30:43 04/07/2010 12:46:32 [id number] Debi Cedeno MD , [facility], [address] [facility] [place] [address] 08/30/2010 08:09:14 08/30/2010 10:46:30 [id number] Robby Rivera MD , [facility], [address] [place] [address] 01/02/2011 11:01:29 01/03/2011 12:37:40 [id number] Robby Rivera MD , [facility], [address] [place] [address] 02/03/2011 14:30:48 02/03/2011 16:13:45 [id number] Milton Oquendo PA-C , [facility], [address] [facility] [place] [address] 02/08/2011 09:38:28 02/08/2011 10:42:06 [id number] Debi Cedeno MD , [facility], [address] [facility] [place] [address] 06/13/2011 13:57:16 06/13/2011 15:35:30 [id number] Chidi Mcallister MD , [facility] [address] [place] [id number] 02/15/2012 11:12:47 02/15/2012 11:49:36 [id number] Chidi Mcallister MD , [facility] [place] [address] [place] [id number] 08/13/2012 09:07:21 08/13/2012 10:38:26 [id number] Luis Duran i, PT Physical Therapy, [facility] [place] [address] [facility] [place] [id number] 08/20/2012 09:01:15 08/21/2012 09:54:13 [id number] Chidi Mcallister MD , [facility] [place] [address] [place] [address] 04/29/2013 16:46:14 04/30/2013 09:34:28 Tobacco user [id number] Seizure [id number] ?Seiszu re twice over the weekend. Denies drug/alcoh ol use. Unclear exactly what happened. Will get records. Mom will dispense ativan one at a time so he can take it. Has hx opiate abuse. Will get recoerds from [facility] and [facility] and try to get in stat to neuro. Pt cannot drive until this is cleared by neuro. Pt and mom understand this. >50% 45 min coordinati care [id number] Chidi Mcallister MD , [facility] [place] [address] [place] [address] 05/14/2013 09:14:15 05/19/2013 09:08:59 Tobacco user 944762098 encouraged to quit Seizure 07968565 Still unclear what exactly happened. Aileen and [...] valerian or melatonin at lowest possible dose. [id number] Chidi Mcallister MD , [facility] [place] [address] [place] [address] 06/19/2013 13:41:50 06/19/2013 15:52:36 Adult health examination 421446546 Benign exam. FHx DM and very high TGL Influenza vaccine needed [id number] 106 Seizure 69180906 Still unclear what exactly happened. Aileen is following him. [id number] Chidi Mcallister MD , [facility] [place] [address] [place] [address] 09/03/2013 08:59:22 09/03/2013 09:37:47 Anxiety 60574643 Seems more stable since admission and new meds. To call [employer] to make sure has routine f/u for adjustment of meds as needed Epidermoid cyst of skin 979945682 not much to see here. If recurs, use warm compresses , abx ointment and band aid to avoid chaffing and return to let me see it. [id number] Chidi Mcallister MD , [facility] [place] [address] [place] [address] 09/26/2013 13:08:12 09/29/2013 08:24:11 Epidermoid cyst of skin 607577105 [id number] Chidi Mcallister MD , [facility] [place] [address] [place] [address] 07/23/2014 11:06:01 07/23/2014 12:00:58 Adult health examination 473745506 Exam done. Check labs Was on K+ for low potassium. now off it 3 days. Will repeat next week. Tobacco user 561202323 E ncouragd to quit Influenza vaccine needed 6187836972 106 Anxiety 96411072 Startin g partial hospitaliz ation tomorrow to help adjust meds/suppo rt. On hydroxyzin e/zyprexa/ trazodone now. Risperadal was stopped. [id number] Stiven Whitley PA-C , [facility] [place] [address] [place] [address] 03/11/2015 16:18:28 03/11/2015 21:43:53 Insomnia 349410468 Trazodone has helped in past, I'd rx this but now ok with hydroxyzin e only Urge incon tinence of urine 22961789 Suspect distractio n plus cayenne peppers or nicotine. Cut out these and see how doing. If not improving, consider uro referral Hypokalemia 59013374 omid ck today. If low, consider repleting again. [id number] Ld Faith MD , [facility] [place] [address] [place] [address] 07/07/2015 08:26:05 07/07/2015 14:47:32 Insomnia 629969597 G47.00 told to take atarax just at bedtime to aid in sleep Trazodone has helped in past, I'd rx this but now ok with hydroxyzin e only Schizoaffe ctive disorder 99045292 F25.9 needs Rx from [facility] restarted Daytime somnolence 55318 07184 00 R40.0 likely due to taking atarax thrice daily, poss concurrren t viral syndrome asked him to take only at night as needed He and i agree he is too sleepy to drive, we will call mother to pick him up observe him [id number] Stiven Whitley PA-C , [facility] [place] [address] [place] [address] 07/12/2015 14:37:40 07/13/2015 08:47:14 Schizoaffective disorder 36641224 F25.9 Seems to do well with zyprexa 5mg bid and hydroxyzin e 25mg tid. Continue working on getting a therapist/ psychiatri st. [id number] Ld Faith MD , [facility] [place] [address] [place] [address] 08/16/2015 08:48:03 08/18/2015 09:20:20 Schizoaffective disorder 26254282 F25.9 Seems to do well with zyprexa 5mg bid and hydroxyzin e 25mg tid. Continue working on getting a therapist/ psychiatri st. Excessive somnolence 372 363612 R40.0 likely med related i asked him [...] , hypokinesi a, maked facies, and tremor), [id number] Stiven Whitley PA-C , [facility] [place] [address] [place] [address] 08/18/2015 14:35:24 08/18/2015 15:22:05 Schizoaffective disorder 80511573 F25.9 Feels like getting too tired but also anxiety is up. Try olanzepine 5mg at night and hydroxyzin e in am and in afternoon prn. If still too sleepy, stop olanzepine . Continue working on getting a psychiatri st. Excessive somnolence 372 269962 R40.0 likely med related [id number] Stiven Whitley PA-C , [facility] [place] [address] [place] [address] 1 08/26/2015 08:46:27 08/26/2015 09:59:28 Acute upper respiratory infection 67045742 J06.9 Seems like sinusitis. Will tx. continue mucinex and nasal saline [id number] Chidi Mcallister MD , [facility] [place] [address] [place] [address] 02/08/2016 14:40:58 02/08/2016 15:22:50 Cigarette smoker 92787494 F17.210 Tobacco user 960588052 Z 72.0 Encouragd to quit Diabetes mellitus 021458 09 E11.9 New dx. Now on metformin and lantus. He will call w/ needles and lancets when he knows specs.Refe r to DM ed. Standing orders Cellulitis and abscess of thigh 495688300 L02.415 Repacked. Still quite indurated. Repack at home q2 days and fu 1 week. [id number] KRISTAL Ramon DM Education , [facility] [place] [address] [place] [address] 02/14/2016 13:16:57 02/22/2016 13:54:06 Uncontrolled type 2 diabetes mellitus 823572853 E11.65 [id number] Chidi Mcallister MD , [facility] [place] [address] [place] [address] 02/15/2016 10:27:15 02/15/2016 11:05:38 Active or passive immunization 398029703 Z23 Diabetes mellitus 442557 09 E11.9 Improving. On lantus. Will max metformin. Informed s/s of low sugarsBook ing f/u w/ DM ed Cellulitis and abscess of thigh 488637022 L02.415 Improving. Will not pack again. If worsening, return Cigarette smoker 1457839 7 F17.210 Tobacco user 868249653 Z 72.0 Encouraged to quit. Precontemp lative [id number] Chidi Mcallister MD , [facility] [place] [address] [place] [address] 05/03/2016 09:28:17 05/03/2016 11:10:56 Acute upper respiratory infection 46182193 J06.9 Viral illness. Some RAD. Try albuterol and tesalon Diabetes mellitus 903100 09 E11.9 due for labs- will do today Cigarette smoker 2808618 7 F17.210 Tobacco user 823597151 Z 72.0 Encouraged to quit. Precontemp lativeHas decreased. Encouraged to keep this up [id number] MD ED Coon, [facility] [place] [address] [place] [address] 06/22/2016 08:44:05 06/22/2016 14:35:21 Cigarette smoker 44828143 F17.210 Tobacco user 638714597 Z 72.0 Encouraged to quit. Has decreased. Encouraged to keep this up Diabetes mellitus 199790 09 E11.9 A1C 7.6. Now on 20 units for past month. Will wait til next A1C Acute otitis media 79667 03 H66.92 improving. finish abx [id number] Chidi Mcallister MD , [facility] [place] [address] [place] [address] 08/02/2016 13:46:58 08/03/2016 13:52:34 Adult health examination 554063051 Z00.00 Exam done Counseling 954822760 Z71 .9 Cigarette smoker 2572043 7 F17.210 see below Tobacco user 122767514 Z 72.0 Encouraged to quit. 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 Can help w/ job options and clothing Diabetes mellitus 497996 09 E11.9 A1C 7.6. Now on 20 units for past month. Due for A1C Gastroesop hageal reflux disease 063046410 K21.9 on and off for a while now. Try PPI regularly for 2 wks then as needed. [id number] Chidi Mcallister MD , [facility] [place] [address] [place] [address] 09/11/2016 08:55:58 09/12/2016 08:31:14 Cigarette smoker 09211806 F17.210 see below Tobacco user 791411488 Z 72.0 Encouraged to quit. Working with his son to decrease his moking and get healthier. Cellulitis and abscess of groin 771519165 L03.537 [id number] Chidi Mcallister MD , [facility] [place] [address] [place] [address] 03/08/2017 15:45:41 03/09/2017 09:27:53 Cigarette smoker 98843833 F17.210 see below Tobacco user 603213434 Z 72.0 Encouraged to decrease Diabetes mellitus 181115 09 E11.9 Tolerating meds well. Come for labs. Major depr ession, melancholic type 120409303 F32.9 improved after psych admit Seizure 74165381 R56.9 Unclear dx, but seen by neurology for this Schizoaffe ctive disorder 55023266 F25.9 Followed by psych. on invega sustana with good response. [id number] Chidi Mcallister MD , [facility] [place] [address] [place] [address] 04/03/2017 14:50:16 04/03/2017 15:26:15 Cigarette smoker 06174400 F17.210 Tobacco user 449547113 Z 72.0 Encouraged to quit Abdominal pain 34722497 R10.9 Unclear cause. Will repeat LFTs from ER and make sure not worsening. Get into GI- appt was made for a month or so Diabetes mellitus 869879 09 E11.9 Increase lantus to 12 units from 10 for now. Address more in 2 mos [id number] Ld Faith MD , [facility] [place] [address] [place] [address] 07/27/2017 08:35:56 07/30/2017 08:22:22 Cigarette smoker 41422014 F17.210 Did not address today.Smok ing increases infection risk & prolongs healing. Tobacco user 373358918 Z 72.0 Otitis media 04928171 H6 6.92 L OM with ruptured TM. Infection still present after finishing azithromyc in course. Will use clarithrom ycin due to numerous allergies & topical ear drops to protect ruptured TM. Insomnia 798193447 G47.0 0 Needs refill. [id number] Chidi Mcallister MD , [facility] [place] [address] [place] [address] 09/13/2017 10:55:25 09/13/2017 14:28:00 Diabetes mellitus 95499728 E11.9 Increase lantus to 12 units from 10 for now. Address more in 2 mos Schizoaffe ctive disorder 86524393 F25.9 Followed by psych. refill Cigarette smoker 1228566 7 F17.210 Tobacco user 700823621 Z 72.0 Encouraged to quit [id number] Purvi Murphy MD , [facility], OFFICE [address] [facility] [place] [address] 11/06/2017 12:31:51 11/06/2017 13:37:45 Cigarette smoker 04120373 F17.210 We discussed the [employer]uit[employer] program. Handout was provided. We discussed the health risks of smoking and the benefits of quitting. : smoking 1-2 cigs daily; started age 18; quit cold turkey in past We discussed text message support from [employer].Farshad lobato will consider signing up Tobacco user 957243362 Z 72.0 Acute otitis media 48791 03 H66.91 A: right TM is red and bulging; patient having worsening right ear pain the past 2 days Patient is allergic to penicillin s and bactrim and ceclor P: will prescribe clarithrom ycin 500 mg bid x 10 days [id number] Chidi Mcallister MD , [facility] [place] [address] [place] [address] 12/03/2017 15:03:06 12/03/2017 16:11:35 Benign essential hypertension 8661855 I10 See JOANNE below Mixed hyperlipidemia 267 337263 E78.2 Still a bit elevated Diabetes mellitus 417091 09 E11.9 Increase lantus to 18 units from 15 for now. Schizoaffe ctive disorder 13686129 F25.9 Followed by [facility] . Last Invega Sustina shot was midd Jul 2017, usually monthly.Ne w therapist at [facility] . Luis Mehta. Last saw him 11/28 and another 12/05. After that thinks will be able to see prescriber . Will see if [facility] can help move this ahead Proteinuria 41696467 R80 .9 start JOANNE Cigarette smoker 6935061 7 F17.210 Tobacco user 585952490 Z 72.0 Encouraged to quit [id number] Sohail Hassan Jr. MD , [facility], [address] [place] [address] 02/06/2018 12:57:08 02/06/2018 15:07:01 Cigarette smoker 24468981 F17.210 Encouraged patient to cut back and consider cessation. Discussed risks associated with prolonged tobacco exposure. Discussed possibilit y of medication options to assist in cessation. Reviewed cessation support options available through [facility]. Approximat jj 3 minutes spent discussing smoking and strategies / reasons to quit. Long-term drug therapy 983055302 Z79.899 Normal QT intervals. [id number] Jr. MD ED Mckeon, [facility], [address] [place] [address] 03/01/2018 09:04:23 03/01/2018 12:51:39 Cigarette smoker 26409385 F17.210 Encouraged patient to cut back and consider cessation. Discussed risks associated with prolonged tobacco exposure. Discussed possibilit y of medication options to assist in cessation. Reviewed cessation support options available through [facility]. Approximat jj 3 minutes spent discussing smoking and strategies / reasons to quit. Mixed hyperlipidemia 267 693514 E78.2 continue to work on diet and exercise as discussed Active or passive immunization 358990007 Z23 Proteinuria 55171882 R80 .9 Improved. Encouraged patient to resume lisinopril and take regularly. Diabetes mellitus 806017 09 E11.9 Reviewed results of A1c. Discussed importance of remaining physically active. Suggested taking metformin 4 tablets all at the same time once a day to improve compliance . Foot exam and retinal exam updated today. [id number] Sohail Hassan Jr. MD , [facility], [address] [place] [address] 06/27/2018 14:50:06 06/27/2018 17:07:00 Schizoaffective disorder 14702761 F25.9 Symptomati c. Meets with therapist regularly. Would benefit from resuming medication s. May require evaluation by family preservation worker. Diabetes mellitus 619535 09 E11.9 Poorly controlled . Does not appear to be taking metformin regularly. Proteinuria 61372396 R80 .9 Encouraged patient to resume lisinopril Chest pain 53706926 R07. 9 In the setting of poorly controlled diabetes and history of cocaine abuse. Patient is agreeable to emergency room evaluation . Spoke with emergency room physician regarding patient's symptoms and potential workup. [id number] Sohail Hassan Jr. MD , [facility], [address] [place] [address] 07/08/2018 12:52:33 07/08/2018 13:42:43 Acute bronchospasm 3429906523 9100 J98.01 Discussed treatment options to include [...] use to avoid thrush. Thoracic back pain 80586 8004 M54.6 Advise conservati ve measures including stretching , massage, Acetaminop hen. Suggested options of chiropract ic care versus to physical therapy if symptoms persist. Nicotine dependence 5629 4008 F17.200 Encouraged patient to cut back and consider complete cessation. Discussed risks associated with prolonged tobacco exposure. Discussed possibilit y of medication options to assist in cessation. Reviewed cessation support options available through [facility]. Fredy gardner 3 minutes spent discussing smoking and strategies / reasons to quit. Schizoaffe ctive disorder 97943417 F25.9 Symptomati c/Improved . Meets with therapist regularly. Verbally contracts for safety. Further management as determined by psychiatry .. Proteinuri a due to type 2 diabetes mellitus 8406711847 56465 E11.29 Blood sugar control has improved now [...] he has had only one positive result. [id number] Adelaida Wesley D.O. ED, [facility], [address] [place] [address] 07/15/2018 17:06:44 07/15/2018 17:46:01 Acute otitis media 3915611 H66.92 left otitis media [id number] Jr. MD ED Mckeon, [facility], OFFICE [address] [facility] [place], [place] [address] 09/09/2018 12:39:54 09/09/2018 18:03:20 Cigarette smoker 36567179 F17.210 Encouraged patient to cut back and consider cessation. Discussed risks associated with prolonged tobacco exposure. Discussed possibilit y of medication options to assist in cessation. Reviewed cessation support options available through [facility]. Approximat jj 3 minutes spent discussing smoking and strategies / reasons to quit. Cellulitis of foot 70613 6007 L03.119 Clinically improving with clindamyci n. Encouraged completing antibiotic s. Infection complicate d by presence of diabetes diagnosis. Tinea pedis 6348025 B35. 3 Could consider additional prescripti on for topical corticoste roid. Lateral epicondylitis 20 5524055 M77.11 Advised relative rest, stretching , anti-infla mmatory medication s. Tennis elbow strap during work hours. Could consider formal physical therapy evaluation and treatment if symptoms not improving Diabetes mellitus 013962 09 E11.9 Has been taking metformin more consistent ly. Denies hypoglycem ia. Will update A1c test today. [id number] DAVE Peterson, [facility], [address] [facility] [address] 10/14/2018 14:32:33 10/14/2018 16:54:24 Cigarette smoker 86668802 F17.210 3+ minutes spent in smoking josé miguel Tirado shalonda. Rx given for nicotrol inhalers. Right uppe r quadrant pain 346485439 R10.11 Reviewed ddx including gastritis, GERD, cholelithi asis, kidney stone. Pt is nontoxic in appearance . Reviewed red flag sxs and when to RTO. Labs and ultrasound pending. [id number] DAVE Peterson, [facility], OFFICE [address] [facility] [address] 11/29/2018 07:46:21 11/29/2018 12:53:20 Abscess 909220390 L02.91 s/p I&D in the ER. Healing well. Continue routine wound care. [id number] Lelia Young MD , [facility], [address] [place] [address] 01/31/2019 12:37:31 01/31/2019 13:15:33 Renal disorder due to type 2 diabetes mellitus 210518226 E11.22 POC A1C is 9 today. Reports missing diabetes medication a couple times a week and not checking blood sugars regularly. Would likely benefit from nutrition DM/Ed Cigarette smoker 7914228 7 F17.210 cutting back; only 1-2 cig a day; recommend complete cessation! Tobacco user 294569521 Z 72.0 Cellulitis of upper limb 486162811 L03.119 concerning for cellulitis ; I don't [...] prescriber of adverse effects or discontinu ation. [id number] Sohail Hassan Jr. MD , [facility], [address] [place] [address] 02/07/2019 09:19:23 02/07/2019 10:24:15 Cigarette smoker 19476067 F17.210 Encouraged patient to cut back and consider cessation. Discussed risks associated with prolonged tobacco exposure. Discussed possibilit y of medication options to assist in cessation. Reviewed cessation support options available through [facility]. Fredy gardner 3 minutes spent discussing smoking and strategies / reasons to quit. Abscess of upper limb 31 9890603 L02.419 Without evidence of abscess. Suspect diabetes is complicati ng symptom resolution . Patient with multiple medication allergies. Would recommend extending doxycyclin e as well as adding clindamyci n. Reviewed red flag symptoms and when to seek emergency care Body mass index 30+ - obesity 176924014 Z68.39 Discussed importance of increased physical activity. Encouraged eating regularly/ not skipping meals. Discussed importance of pain attention to portion size and making healthier selections with fresh fruits and vegetables . Encouraged minimizing empty calories found in soft drinks and alcoholic beverages. Discussed availabili ty of weight loss shared medical appointmen ts available through [facility]. Renal diso rder due to type 2 diabetes mellitus 979764205 E11.22 Continue with metformin and Lantus. Requested close follow-up for further evaluation and management of diabetes. [id number] Mable Alcantara MD , [facility], OFFICE [address] [facility] [place] [address] 03/28/2019 08:56:22 03/28/2019 14:28:43 Acute upper respiratory infection 82476488 J06.9 Educated patient that URI is a [...] reminded to push water daily. Cigarette smoker 4446394 7 F17.210 Recommend cessation Schizoaffe ctive disorder 03417108 F25.9 Clinically stable on qmo Invega, prn hydroxyzin e. Uncontroll ed type 2 diabetes mellitus 159877843 E11.65 Last A1c 6wks ago high at 10. No known lows on current regimen. Increase Lantus to 20U qd and f/u with Dr Hassan as planned next month. Do lipid panel, BMP today. Wheezing 77415261 R06.2 ProAir inhaler renewed [id number] Sohail Hassan Jr. MD , [facility], [address] [address] [facility] [place] [address] 09/02/2019 08:40:50 09/02/2019 09:21:17 Diabetes mellitus 30348919 E11.9 Noncomplia nt with medication s. Refill sent to pharmacy. A1c attempted today. Plan to address further labs at follow-up visit in 2 days Cigarette smoker 4583828 7 F17.210 Encouraged patient to cut back and consider cessation. Discussed risks associated with prolonged tobacco exposure. Discussed possibilit y of medication options to assist in cessation. Reviewed cessation support options available through [facility]. Fredy gardner 3 minutes spent discussing smoking and strategies / reasons to quit. Abscess of skin and/or subcutaneous tissue 56540935 L02.91 Reviewed culture results, advised to continue doxycyclin e & warm compresses . Requested follow up in two days. will speak ID specialist regarding antibiotic changes. Hidradenit is suppurativa 66476986 L73.2 Patient with recurrent infections and axilla and inguinal fold. Clinically suspicious for hidradenit is. In discussion with infectious disease specialist , will initiate topical clindamyci n. May require further evaluation by dermatolog y. [id number] Sohail Hassan Jr. MD , [facility], OFFICE [address] [facility] [place] [address] 09/04/2019 10:40:29 09/04/2019 11:05:30 Abscess of skin and/or subcutaneous tissue 70137798 L02.91 Clinically improving. Patient to complete course of doxycyclin e. Diabetes mellitus 469265 09 E11.9 Noncomplia nt with medication s. Patient to resume medication s. Would benefit from medical management follow-up within the next 3 months. Hidradenit is suppurativa 07746043 L73.2 Patient with recurrent infections and axilla and inguinal fold. Clinically suspicious for hidradenit is. In discussion with infectious disease specialist , will initiate topical clindamyci n. May require further evaluation by dermatolog y. [id number] KRISTAL Bee , [facility] [place] [facility] [place] [address] [place] [address] 12/31/2019 15:16:51 01/01/2020 11:53:25 Type 2 diabetes mellitus 65877656 E11.9 Pt feeling weak, fatigued, dizzy, lightheade d, nauseous, chest discomfort , polyuria, SOB x several daysEviden ce of slowed speech over phone visit, unable to visually evaluate patient Has not taken DM meds in > 1 weekCannot find testing supplies at homeConcer n for hyperglyce donna or DKA, [facility], will drive himReport called [facility] to notify of his arrivalWil l order new DM supplies and routine labsPlan for f/u with PCP Cigarette smoker 0917969 7 F17.210 did not address given current medical status Tobacco user 879884338 Z 72.0 as above [id number] Sohail Hassan Jr. MD , [facility], [address] [place] [address] 01/08/2020 14:42:10 01/08/2020 16:08:49 Schizoaffective disorder 73214512 F25.9 Symptomati c/Improved . Meets with therapist regularly. Verbally contracts for safety. Further management as determined by psychiatry .. Diabetes mellitus 232529 09 E11.9 Noncomplia nt with medication s. Patient to resume medication s. Advised appropriat e way to titrate metformin to avoid diarrhea symptoms. Continue with Lantus. Requested patient schedule labs soon and arrange medical management visit in 8 weeks. [id number] Jerrell Colbert MD , [facility], [address] [place] [address] 01/21/2020 13:43:30 01/21/2020 15:25:23 Pain of right shoulder joint [id number] M25.511 continue ice, aleve--PT- -is work related injury, no lifting/ov erhead work for a week [id number] Jerrell Mar, PT Physical Therapy, [address] [address] 01/27/2020 14:02:18 01/28/2020 08:05:42 Tendinitis of right shoulder [id number] M75.91 [id number] Jerrell Mar PT Physical Therapy, [address] [address] 02/03/2020 15:13:30 02/04/2020 16:06:19 Tendinitis of right shoulder [id number] 509500 M75.91 [id number] Rosmery Aleman DNP FP, [facility], [address] [place] [address] 12/31/2020 14:24:40 01/03/2021 06:42:50 Cigarette smoker [id number] F17.210 Tobacco user [id number] Z 72.0 Nausea and vomiting 1692 1999 R11.2 mild nausea persists, emesis x 2 this am Diabetes mellitus 128103 09 E11.9 Diarrhea 26704310 R19.7 took one dose pepto this morning but did not help. will repeat. reports 10 BMs today, decreasing in frequency as day progressed . [id number] Adelaida Wesley D.O. , [facility], [address] [place] [address] 02/02/2021 07:38:24 02/02/2021 08:07:47 Cigarette smoker 07980399 F17.210 2-3 cigarettes a day, he works at [employer] discussed adverse effects coupled with DM, Obesity and how that leads to heart disease. Tobacco user 003852167 Z 72.0 above Infection of skin and/or subcutaneous tissue 83155206 L08.9 on the mons ubis there are 2 areas of erythema, mild induration , no drainage,a febrile Obesity 077596952 E66.9 BMI today 37.8 discussed need for decreasing , will follow up with dr. Hassan EMR/Labs/M edications /Consults reviewed Hypertriglyceridemia 302 102368 E78.1 last lipids 12/2019 167/343/28 LDL 89 discussed adverse effects of elevated triglyceri carrol, will get new labs fasting and follow up with Dr. Collazo/ Labs/Medic ations/Con sults reviewed Uncontroll ed type 2 diabetes mellitus [id number] E11.65 A1c 10.4 12/2019 will repeat labs ( his brother recently , pneumonia and covid) He has not been taking. EMR/Labs/M edications /Consults reviewed [id number] RAJ Carrillo MD , [facility], [address] [place] [address] 02/21/2021 09:57:37 02/21/2021 11:00:11 Cigarette smoker 04578496 F17.210 Currently smoking 3-4 cigarettes per day. Reviewed associatio n between HS and tobacco use. Has tried gum, patch. Declines additional support at this time. Tobacco user 888092047 Z 72.0 Hidradenit is suppurativa 31612590 L73.2 C/W hidradenit is suppurativ e. Reviewed diagnosis, management . Continue oral doxycyclin e, topical clindamyci n. Work note provided for today. Suspect that patient will be able to return 02/22/21. [id number] Sohail Hassan Jr. MD , [facility], [address] [place] [address] 02/25/2021 15:18:03 02/25/2021 17:19:40 Hidradenitis suppurativa 95410491 L73.2 Now seen for this issue for [...] with us if worsening or not improving. [id number] Adelaida Wesley D.O. , [facility], [address] [place] [address] 03/10/2021 11:42:23 03/10/2021 12:21:07 Cigarette smoker [id number] F17.210 Considerin g quitting. Has the inhaler at home.Reinf orced benefits of quitting and reviewed NRT options. Tobacco user 149466147 Z 72.0 Thoracic back pain 68958 8004 M54.6 Discussed pathophysi ology of acute [...] fails to resolve with conservati ve care. [id number] Jerrell Colbert MD , [facility], [address] [facility] [place] [address] 03/17/2021 10:18:21 03/17/2021 11:37:36 Thoracic back pain 176359475 M54.6 resume flexeril. Reommend PT, will check into [place], lives there now. Continue heat/ice. Health Concerns Section Related Observation LastModified by Organization Detai ls LastModified Time None Recorded Concern Status LastModified by Organization Details LastModified Time None Recorded Advance Directives Directive N: Given Form @ [facility] on 05/27, 06/19/13 Payers Encounter Date Sequence Insurance Name Policy Number Policy Leonardo Covered Member ID Leonardo Member ID Guarantor Name 02/02/2021 1 [place]IOR [place] 2022 - [facility] (MEDICAID) He D Organ [id number] He D Organ 02/21/2021 1 [place] 20[place] - [facility] (MEDICAID) He D Goldy [id number] He D Organ 02/25/2021 1 [place]IOR [place] - [facility] (MEDICAID) He D Goldy [id number] He D Goldy 03/10/2021 1 [place] - [facility] (MEDICAID) He D Goldy [id number] He D Organ 03/17/2021 1 [place] - [facility] (MEDICAID) He Winslow [id number] He Wins[place] Notes Date Note Type Note Provider Name and Address Organization Details Recorded Time 02/02/2021 text/html a/vmg-smoking [id number] bypatient.ImportanceOn a scale of 1-10 with 1 [...] about 2-3 a day. Jacqui Vega PA-C [address] [place] [address], [phone], [facility] 02/02/2021 08:16:05 02/21/2021 text/html a/vmg-smoking [id number] bypatient.ImportanceOn a scale of 1-10 with 1 [...] can go to work today. Works at [employer]. Supposed to go in at 10:30am today.Started medication on Sunday. KRISTAL Robles [address] [place], [address], [facility] 02/21/2021 10:44:44 02/25/2021 text/html 35M patient of Rambo karen Hassan with PMH DM2, obesity, schizoaffective DO, active smoker presents for same-day visit to discuss: #Hidradenitis suppurativaPatient with visits 02/02/21 and 02/21/21 for this same issueTaking doxycycline and mupirocin, stopped clindamycin.Never followed up with dermatology.No fevers, no nausea/vomiting. 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 No leg weakness/numbness. Jerrell Colbert MD [address] [place] [address], [phone], [facility] 03/17/2021 10:56:39
== END 2024-11-04 14:11 | disposition home or self-care (01) ==
LOC: HO.HMCC 13:33
PROVIDERS: PCP Nurse Practitioner Family; Visit Provider Nurse Practitioner Family
DX: Z13.9 Encounter for screening, unspecified (principal); E11.9 Type 2 diabetes mellitus without complications

== ENCOUNTER → 2024-11-04 13:32 | Outpatient (BNVA) | payer OTHER, SELFPAY | PROVIDERS: PCP Nurse Practitioner Family; Visit Provider Nurse Practitioner Family | DX: E11.9 Type 2 diabetes mellitus without complications (principal); E66.01 Morbid (severe) obesity due to excess calories; Z68.36 Body mass index [BMI] 36.0-36.9, adult; Z79.899 Other long term (current) drug therapy | CPT/HCPCS: 83036; 96127; 99212 ==

== ENCOUNTER 2024-12-02 15:24 | Outpatient (AMB) | payer OTHER, SELFPAY ==
--- NOTE | 2024-12-02 15:30 | A.OFFVIS_ITS ---
Vital Signs 12/02/24 15:32 Height 5 ft 4 in Weight 214 lb 11.684 oz BMI 36.9 BP 108/84 Blood Pressure Location Rt brachial Position Sitting Pulse 104 H Pulse Source Pulse Oximeter Pulse Oximetry (%) 97 Oxygen Delivery Method Room Air Intake Visit Reasons: T2DM Intake Note: New patient internally referred by PCP for T2DM. Patient reports he does have a glucometer and states he has not been checking his blood sugars. Last Diabetic Eye exam: approx last summer 2023, will call to check when next appointment is. Last Podiatry Visit: Does not see a Photostatic Copy Maker Random Glucose: 275 mg/dl HgA1C: 10.8% 11/04/2024 Fifth Hand Required: No Accompanied by: Self / Same As Patient Allergies cefaclor [From Ceclor] Allergy (Mild, Verified 12/02/24 15:33) Rash sulfamethoxazole [From Bactrim] Allergy (Mild, Verified 12/02/24 15:33) Rash trimethoprim [From Bactrim] Allergy (Mild, Verified 12/02/24 15:33) Rash metformin Adverse Reaction (Intermediate, Verified 12/02/24 15:33) Nausea cillins Allergy (Intermediate, Uncoded 12/02/24 15:33) Anaphylaxis HPI Comments Details: This is a 38-year-old male with a past medical history of tobacco use disorder, type 2 diabetes and obesity presenting for an initial consult for diabetic management. 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 He has 2 sons. He was diagnosed with Type II diabetes about 15 years ago. Family hx of Type II -mother, father () Brother had Type I diabetes (). Denies history of DKA or hospitalizations. Hemoglobin a1c 10.8% 11/04/2024 Current medication regimen: Trulicity 0.75 mg weekly, Jardiance 25 mg daily Past medication: Metformin caused nausea and diarrhea Compliance issues: Patient admits he was not taking very good care of himself or compliant with his medications. 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 He restarted Jardiance recently, and he has been on the full tablet for a week or 2 now. He does not have a glucometer with him today, and he has not been checking blood sugars. Diet: Breakfast- toast with peanut butter, yogurt sometimes, water, medium coffee with cream and flavor shots Lunch-sometimes gets take out if he doesn't bring something from home, pizza, sandwich Dinner- protein, vegetables, rice or potato Sometimes drinks soda, trying to cut back Snacks/desserts: he's decreased sweets and chips Hypoglycemia symptoms: none Hyperglycemia symptoms: Polyuria and fatigue Eye exam: Last Summer Microvascular complications: no known Macrovascular complications: none Hypertension: treated with losartan Hyperlipidemia: treated with atorvastatin, but he has not been taking consistently LDL at goal <100. ROS: Constitutional: No unexplained weight loss, fever, chills, fatigue or night sweats. Eyes: No vision changes, blurry vision, double vision, eye pain Respiratory: No shortness of breath, cough or sputum production. Cardiovascular: No chest pain, chest pressure or chest discomfort. No palpitations or pedal edema. Gastrointestinal: No anorexia, nausea, vomiting or diarrhea. No abdominal pain or blood in stool. Neurologic: No headache, dizziness, syncope, unilateral weakness, ataxia, numbness or tingling in the extremities. Endocrine: No cold or heat intolerance. see HPI Physical exam: Constitutional: Alert, in no distress. Eyes: Pupils are equal, round and reactive to light. Extraocular muscles intact. Ear, Nose and Throat: Canals clear. TMs normal. Normal nasal mucosa. No nasal discharge. No oral lesions. Neck: Supple, Full range of motion. No lymphadenopathy. No palpable thyroid masses. Respiratory: Clear to auscultation. Cardiovascular: S1 S2 regular. No murmurs. Right foot: Warm and well perfused. No clubbing, cyanosis or edema. Intact DP pulse. Intact vibratory sensation. Intact sensation to monofilament. No open wounds. Left foot: Warm and well perfused. No clubbing, cyanosis or edema. Intact DP pulse. Intact vibratory sensation. Intact sensation to monofilament. No open wounds. [facility] Medical History (Updated 12/02/24 @ 16:30 by MAE Hanna) Diabetes mellitus with hyperglycemia Suicidal ideation Schizo affective schizophrenia Surgical History S/P cholecystectomy S/P tonsillectomy S/P panniculectomy Social History Housing: House Patient Tobacco Use Status: Former Tobacco user Cigarettes Per Day: 4 e-Cigarette/Vaping Use: Currently Using Second Hand Smoke Exposure: No service: No Current occupational status: employed Cognitive needs: No Hearing needs: No Vision needs: No Physical Exam Vital Signs: Last Vital Signs Pulse 104 H 12/02/24 15:32 BP 108/84 12/02/24 15:32 Pulse Ox 97 12/02/24 15:32 Oxygen Delivery Method Room Air 12/02/24 15:32 BMI result Body Mass Index 36.9 Results Reviewed Results Reviewed: Laboratory Last Values Glucose (Clinic) 275 mg/dL (60-115) H 12/02/24 15:41 Laboratory Tests 08/02/24 08/04/24 11/04/24 06:52 14:13 14:00 Plt Count 296 Creatinine 0.99 Estimated GFR > 60 Hgb A1c (Clinic) 9.1 H 10.8 H Triglycerides 237 H Cholesterol 173 LDL Cholesterol, Calc 92 HDL Cholesterol 34 L TSH 1.90 Urine Creatinine 83.41 Urine Microalbumin 10.0 Microalb/Creat Ratio 11.9 Assessment & Plan Assessment & Plan (1) Diabetes mellitus with hyperglycemia: Code(s): E11.65 - Type 2 diabetes mellitus with hyperglycemia Category: Medical Plan In summary this is a 38-year-old male with uncontrolled diabetes mellitus with no known complications. He has struggled a bit with compliance, but he feels motivated because he wants to prevent complications. He will start Trulicity 0.75 mg weekly. Reviewed side effects and administration and titration. Continue Jardiance 25 mg daily. Stressed the importance of compliance with medications. Discussed pathophysiology of Type II Diabetes Mellitus with the patient in detail.? I explained the longterm risks and complications associated with uncontrolled diabetes including nephropathy, neuropathy, peripheral vascular disease, retinopathy, increased risk of heart disease and stroke.? Discussed lifestyle modification with the patient. Recommended 30 minutes of moderately vigorous exercise 5 days per week to promote weight loss. I referred the patient to the dietitian. Patient will have lab work done prior to his next appointment. Given family history of type 1 diabetes ordered C-peptide, KATIE antibody and islet cell antibody screening. Reviewed management of hypoglycemia with the patient. Glucose tablets sent to pharmacy. Written instructions provided. Reviewed the importance of home glucose monitoring. He agrees to start this and bring his meter with him to the next appointment. Follow up in 4 weeks for diabetes. Orders: Orders Creatinine Today E11.9 - Type 2 diabetes mellitus without complications Alanine Aminotransferase Today E11.9 - Type 2 diabetes mellitus without complications, R79.89 - Other specified abnormal findings of blood chemistry Aspartate Amino Transferase Today E11.9 - Type 2 diabetes mellitus without complications Lipid Panel Today E11.9 - Type 2 diabetes mellitus without complications, E78.5 - Hyperlipidemia, unspecified C Peptide Today E11.9 - Type 2 diabetes mellitus without complications Glutamic acid decarboxylase Ab Today E11.9 - Type 2 diabetes mellitus without complications Islet Cell Antibody Scrn/Titer Today E11.9 - Type 2 diabetes mellitus without complications Referrals Remittance Clerk Nutrition Referral E11.65 - Type 2 diabetes mellitus with hyperglycemia Medications: New glucose (Dex4 Glucose Quick Dissolve) until symptoms of low blood sugar are controlled 16 grams (4 x 4 gram) PO Q15M PRN 10 tabs 3RF hypoglycemia Refilled dulaglutide (Trulicity) 0.75 mg (0.5 mL) subcut QWEEK 2 mL 0RF Patient Instructions: If you experience low blood sugar (under 70), treat this by eating a chewable fruit candy like skittles or jelly beans (about 8 pieces), 4 ounces (1/2 cup) of fruit juice (not diet), 1 tablespoon of honey or 4 glucose tablets. If your blood sugar is under 55, take double the amount of one of the above. Recheck your blood sugar in 15 minutes. Start Trulicity 0.75 mg weekly Jardiance 25 mg daily [email or web address] Coding Level of Care Code New Pt Level 5 (37144) Complex EM visit Add On G2211 Diagnoses Diabetes mellitus with hyperglycemia E11.65 Time Spent (min) 62 Comment Chart review, direct patient care, completing documentation
[2024-12-02 15:32] VITALS: BP 108/84; PULSE 104; O2SAT 97; BMI 36.9
[2024-12-02 15:45] LABS: Glucose, Whole Blood 275 mg/dL (60-115)
--- OUTSIDE RECORDS SUMMARY | 2024-12-02 17:58 | XMS_ITS | Data Portability ---
Author Organization [facility], [facility] Address [address] [place] [address] Assessment Encounter Date Assessment Date Assessment LastModified [...] plan for this patient? s care today. Not available 02/25/2021 17:13:12 Plan of Treatment Reminders Order Date Submit Date Provider Last Modified By Organization Details Last Modified Time Details Appointments None recorded. Lab None recorded. Referral dermatolog ist referral - Worsening Hydradenit is despite systemic antibiotic s 2020 021 RENAE Crooks MD, [address] [place] [address] Rd, Professional [address], [place], [address], 14:31:16 Procedures None recorded. Surgeries None recorded. Imaging None recorded. Medication Orders cyclobenza grzegorz 10 mg tablet 2020 021 socorro [facility]/Pharmacy #[id number], [address] [place], [address], 10:50:58 cyclobenza grzegorz 10 mg tablet 2020 021 [id number], [address] [facility] [place], [address], 12:00:33 clindamyci n 1 % topical gel 2020 021 [email or web address] [id number] [address] [facility] [place], [address], 12:00:50 clindamyci n HCl 300 mg capsule 2020 021 [id number] [address] [facility] [place], [address], 15:53:19 rifampin 300 mg capsule 2020 021 [id number] [address] [facility] [place], [address], 15:53:19 doxycyclin e hyclate 100 mg capsule 2020 021 [email or web address] [facility]/Pharmacy #[id number], [address] [facility] [place], [address], 10:20:49 Patient TargetsNo targets recorded. Patient Instructions Encounter Date Encounter Id Patient Instructions Last Modified By Organization Details Last Modified Time 02/02/2021 [id number] [facility]ing [facility] Not available 02/02/2021 07:46:45 02/21/2021 [id number] deciding about using medicines to quit smoking [email or web address] Not available 02/21/2021 10:41:08 Quitting Tobacco : Care Instructions [email or web address] Not available 02/21/2021 10:41:08 The care for thi s patient today involved the following: I have reviewed, collected, and updated relevant history and performed a physical exam. An independent historian was used to obtain history . My assessment of Social Determinants of health: . At risk due to . My care of this patient involved: low Assessment of problems. Review of data low Complexity of risk from disease or treatments Below is my assessment and plan for this patient? s care today. 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 Referral for H idradenitis suppurativa Worsening Hydradenitis despite systemic antibiotics Referring Physician: Raj Galarza, Family Medicine, Encounter Date: 02/25/2021 Problems Name Problem SNOMED Code Status Onset Date Resolution Date Notes Provider Name and Address Organization Details Recorded Time Diabetes mellitus 95143886 Completed 201503/28/2019 [facility] 08:55:51 Schizoaf fective disorder 97389313 Active 2016 Stiven Whitley PA-C [address] [place] [address], [phone] , [facility] 7 16:26:06 Tobacco user 732249050 Completed 201710/14/2018 Betsy Mcneal NP [address] [place] [address], [phone] , [facility] 9 16:06:19 Benign essentia l hyperten brittnee 5389901 Completed 201703/01/2018 Sohail Hassan Jr. MD [address] [place] [address], [address] , [facility] 8 12:40:48 Proteinu juan 35973403 Active 2017 Stiven Whitley PA-C [address] [place] [address], [phone] , [facility] 8 15:32:45 Renal disorder due to type 2 diabetes mellitus 022237961 Completed 201803/28/2019 Mable Alcantara MD [address] [place] [address], , [facility] 9 09:28:03 Cigarett e smoker 68386455 Active 2018 Betsy Mcneal NP [address] [place] [address], , [facility] 9 16:06:12 Diabetes mellitus 22170236 Active 2018 [facility] 9 08:55:51 Uncontro lled type 2 diabetes mellitus 106615738 Active 2020 Jacqui Vega PA-C [address] [place] [address], , [facility] 1 08:06:43 Hidraden itis suppurat fede 47996552 Active 2020 RAJ Carrillo MD [address] [place] [address], , [facility] 1 12:41:15 Morbid obesity 042301454 Active 2021 BMI > or = 35 plus diagnosi s of diabetes . PETRA Hussein, [facility] 2 08:00:44 Headache 81586379 Completed 200006/22/2016 Stiven Whitley PA-C [address] [place] [address], , [facility] 7 09:04:03 Obesity 716187306 Completed 03/28/2022 PETRA Hussein, [facility] 2 08:00:13 Major depressi on, melancho lic type 884691548 Completed 05/11/2019 Mable Alcantara MD [address] [place] [address], , [facility] 9 13:43:57 Neck pain 23804411 Completed 199905/07/2013 Not Available [facility] 3 02:00:34 Disorder of upper respirat ory system 158280348 Completed 200005/07/2013 Not Available [facility] 3 02:03:48 Problem Notes None recorded. Procedures Surgical History Date Name Laterality Status Provider Name and Address Organization Details Recorded Time 01/01/20 21 Smoking cessation counseling completed Silvia Macdonald [facility] 12/31/2020 14:26:25 01/01/20 21 Smoking cessation counseling cancelled Silvia Macdonald [facility] 12/31/2020 13:30:30 01/01/20 21 Carbon Monoxide Testing cancelled Silvia Macdonald [facility] 12/31/2020 13:30:30 02/10/20 20 07755: Therapeutic Exercise cancelled Jerrell Mar, PT [address] [place], [address], [facility] 02/10/2020 14:31:26 02/03/20 86129: Therapeutic Exercise completed Jerrell Mar, PT [address] [place], [address], [facility] 02/04/2020 15:39:51 01/27/20 20 Physical Activity Counselling completed Jerrell Mar, PT [address] [place], [address], [facility] 01/27/2020 14:08:37 01/27/20 58875: PT Eval, Moderate Complexity completed Jerrell Mar, PT [address] [place], [address], [facility] 01/27/2020 14:08:40 01/21/20 20 Smoking cessation counseling completed Leslie Turk [facility] 01/21/2020 13:49:26 09/02/19 20 Smoking cessation counseling completed Sohail Hassan Jr. MD [address] [place] [address], [address], [facility] 09/03/2019 05:17:21 02/08/20 19 Smoking cessation counseling completed Sohail Hassan Jr. MD [address] [place] [address], [phone], [facility] 02/09/2019 09:55:50 02/01/20 19 Smoking cessation counseling completed Lelia Young MD [address] [place] [address], [address], [facility] 01/31/2019 13:03:40 02/01/20 19 Carbon Monoxide Testing completed Lelia Young MD [address] [place] [address], [address], [facility] 01/31/2019 13:03:40 02/01/20 19 POC HA1C completed Silvia Macdonald Teo [facility] 01/31/2019 13:01:08 10/15/19 19 Smoking cessation counseling completed Aliza Bhat [facility] 10/14/2018 14:43:25 09/10/19 19 Smoking cessation counseling completed Zakiya Lane [employer] [facility] 09/09/2018 12:54:43 07/08/19 19 Smoking cessation counseling completed Sohail Hassan Jr. MD [address] [place] [address], [address], [facility] 07/09/2018 05:06:04 03/01/20 18 Smoking cessation counseling completed Elaine Quinonez [facility] 03/01/2018 09:10:24 03/01/20 18 Carbon Monoxide Testing completed Elaine Quinonez [facility] 03/01/2018 09:10:25 03/01/20 18 Diabetic Retinal Exam completed Roslyn Aguirre [facility] 03/04/2018 09:58:19 02/07/20 18 Smoking cessation counseling completed Shantell Mariscal [facility] 02/06/2018 12:59:57 02/07/20 18 Carbon Monoxide Testing completed Shantell Mariscal [facility] 02/06/2018 12:59:57 12/04/19 18 Smoking cessation counseling completed Talia Watts [facility] 12/03/2017 15:44:21 12/04/19 18 Carbon Monoxide Testing completed Talia Watts [facility] 12/03/2017 15:44:21 11/07/19 18 Smoking cessation counseling completed HEAVENLY Soto [address] [place] [address], [address], [facility] 11/06/2017 12:57:34 11/07/19 18 Carbon Monoxide Testing completed HEAVENLY Soto [address] [place] [address], [address], [facility] 11/06/2017 12:57:34 09/14/19 18 Smoking cessation counseling completed Talia Watts [place] [facility] 09/13/2017 11:06:55 09/14/19 18 Carbon Monoxide Testing completed Talia Watts MA [facility] 09/13/2017 11:06:55 09/14/19 18 POC Urinalysis Testing completed Talia Watts MA [facility] 09/13/2017 11:08:30 07/27/19 18 Smoking cessation counseling completed Prabha Son LPN [facility] 07/27/2017 08:45:12 07/27/19 18 Carbon Monoxide Testing completed Prabha Son LPN [facility] 07/27/2017 08:45:12 04/03/20 17 Smoking cessation counseling completed TRAVIS Romo [facility] 04/03/2017 14:59:49 04/03/20 17 Carbon Monoxide Testing completed TRAVIS Romo [facility] 04/03/2017 14:59:49 03/08/20 17 Smoking cessation counseling completed Saritha Kruse [facility] 03/08/2017 15:51:38 03/08/20 17 Carbon Monoxide Testing completed Saritha Kruse [facility] 03/08/2017 15:51:38 09/12/19 17 Smoking cessation counseling completed Talia Watts [place] [facility] 09/11/2016 08:59:57 09/12/19 17 Carbon Monoxide Testing completed Talia Watts [place] [facility] 09/11/2016 09:06:03 08/02/19 17 Smoking cessation counseling completed Talia Watts [place] [facility] 08/02/2016 13:49:57 08/02/19 17 Carbon Monoxide Testing completed Talia Watts MA [facility] 08/02/2016 14:02:46 06/22/19 17 Smoking cessation counseling completed Talia Watts MA [facility] 06/22/2016 08:55:11 06/22/19 17 Carbon Monoxide Testing completed Talia Watts MA [facility] 06/22/2016 08:58:07 05/03/20 16 Smoking cessation counseling completed Stiven Whitley PA-C [address] [place] [address], [address], [facility] 05/03/2016 09:56:53 02/08/20 16 Smoking cessation counseling completed Jurgen Whitehead LPN [facility] 02/08/2016 14:45:40 02/08/20 16 Carbon Monoxide Testing completed Jurgen Whitehead LPN [facility] 02/08/2016 14:58:52 07/23/19 15 Smoking cessation counseling completed Talia Watts [facility] 07/23/2014 11:08:07 05/14/20 13 Smoking cessation counseling completed Lory Arreguin [facility] 05/14/2013 09:21:01 08/13/19 13 Smoking cessation counseling completed Sukumar Chavez [facility] 08/13/2012 09:18:46 02/15/20 12 Smoking cessation counseling completed Chidi Mcallister MD [address] [place] [address], [address], [facility] 02/15/2012 11:52:15 06/13/20 11 Smoking cessation counseling completed Karly Cobos [facility] 06/13/2011 14:04:49 02/04/20 11 vasectomy/Esric k completed Mabel Mckenna [facility] 02/03/2011 15:00:52 Imaging Results None recorded. Procedure Notes None recorded. Medical Equipment None Reported. Allergies Allergen ID Allergen Name Allergen Category Reaction Reaction Severity Criticality Documentation Date Start Date Code Code System Note Provider Name and Address Organization Details Recorded Time 000976 risperido ne medicatio n Not available Not available Not available 05/14/2013 01927 RxNorm ?seiz ure activ ity 04/30 Stvien Whitley PA-C [address] [place] [address] [place], [address], [facility] 3 09:35:56 79084 Product containin g penicilli n (product) medicatio n anaphylax is Not available Not available 05/25/2009 48362 8001 SNOMED Not Available [facility] 1 06:05:20 21782 amoxicill in medicatio n anaphylax is Not available Not available 05/25/2009 723 RxNorm Not Available [facility] 1 06:05:20 917515 Ceclor medicatio n Not available Not available Not available 05/03/2016 84589 5 RxNorm TRAVIS Romo, [facility] 6 09:37:43 46778 Bactrim medicatio n rash Not available Not available 02/08/2011 09636 9 RxNorm Not Available [facility] 1 06:05:41 Medications Name Sig Start Date [...] active Is waiting for a call from [facility] for an intake appt. Last PHA [...] Available No t Available Vitals Date Recorded Systolic blood pressure Diastolic blood pressure Provider Name and Address Organization Details Last Updated DateTime 02/02/2021 138 mm[Hg] 86 mm[Hg] Jacqui Vega PA-C [address] [place] [address], [address], [facility] 02/02/2021 08:03:30 Date Recorded Body height Body mass index (BMI) Body weight Oxygen saturation Oxygen saturation in Arterial blood by Pulse oximetry Heart rate Systolic blood pressure Diastolic blood pressure Provider Name and Address Organization Details Last Updated DateTime 1 161.29 cm 37.8 kg/m2 31263.5 4 g 97 % 97 % 87 /min 120 mm[Hg] 90 mm[Hg] Shantell Mariscal MA [facility] 07:49:57 Date Recorded Body height Body mass index (BMI) Body weight Systolic blood pressure Diastolic blood pressure Provider Name and Address Organization Details Last Updated DateTime 02/21/2021 161.29 cm 37.7 kg/m2 36612.35 g 124 mm[Hg] 76 mm[Hg] Ryann Almonte [facility] 1 10:23:14 Date Recorded Body height Body mass index (BMI) Body weight Oxygen saturation Oxygen saturation in Arterial blood by Pulse oximetry Heart rate Systolic blood pressure Diastolic blood pressure Provider Name and Address Organization Details Last Updated DateTime 1 161.29 cm 37.2 kg/m2 29911.5 7 g 97 % 97 % 102 /min 136 mm[Hg] 90 mm[Hg] Lashaun Pham LPN [facility] 15:29:48 Date Recorded Body height Body mass index (BMI) Body weight Heart rate Systolic blood pressure Diastolic blood pressure Provider Name and Address Organization Details Last Updated DateTime 161.29 cm 36.6 kg/m2 12904.4 g 88 /min 98 mm[Hg] 60 mm[Hg] Dagoberto Augustin [facility] 1 11:51:32 Date Recorded Body height Body mass index (BMI) Body weight Systolic blood pressure Diastolic blood pressure Provider Name and Address Organization Details Last Updated DateTime 03/17/2021 161.29 cm 36.6 kg/m2 08520.4 g 124 mm[Hg] 80 mm[Hg] Elaine Quinonez [facility] 10:33:41 Social History Question Answer Notes LastModified by Organizat ion Details LastModified Time Tobacco Smoking Status Current Every Day Smoker 06/21 PPD Not Available [facility] 11/10/2010 02:08:28 Do You Have An Advance Directive? No Given Form @ PHA On 05/27/2009, 06/19/13 [email or web address] Information not available [...] not available 04/07/2010 Education 12 [place] d 04/01 Information not available 07/23/2014 How [...] mation not available 02/14/2016 Marital Status '15 [email or web address] Informatio n not available 07/23/2014 Mosquito Repellent Used Routinely Yes [email or web address] Information not available 08/26/2015 What Was The Date Of Your Most Recent Tobacco Screening? 02/21/2021 [email or web address] Information not available 02/21/2021 How Many Children [...] Much Tobacco Do You Smoke? 0.25 PPD [email or web address] Information not available 09/02/2019 General Stress Level Medium Information not available 02/14/2016 Do You Use Sunscreen Routinely? Yes [email or web address] Information not available 05/04/2011 How Many Years Have You Smoked Tobacco? 25 Smoked Since Age 18 [email or web address] Information not available 02/07/2019 Sex: Unknown Functional Status Question Answer Note LastModified by Organizat ion Details LastModified Time What is your level of alcohol consumption? None <1/month. had some trouble w/etoh early 20s Information not available 08/02/2016 Do you or have you ever used smokeless tobacco? 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 non-sm [...] virus, trivalent, preservative 1 completed Not Available [facility] 07/05/2019 02:18:31 OPV 6 completed Not Available [facility] 05/03/2011 05:22:13 Td(adult) unspecified formulation 0 completed Not Available [facility] 05/03/2011 05:22:13 Hep B, unspecified formulation 7 completed Not Available [facility] 05/03/2011 05:22:13 OPV 6 completed Not Available [facility] 05/03/2011 05:22:41 Hep B, unspecified formulation 7 completed Not Available [facility] 05/03/2011 05:22:13 OPV 8 completed Not Available [facility] 05/03/2011 05:22:13 DTP 6 completed Not Available [facility] 05/03/2011 05:22:13 OPV 0 completed Not Available [facility] 05/03/2011 05:22:13 MMR 1 completed Not Available [facility] 05/03/2011 05:22:13 DTP 6 completed Not Available [facility] 05/03/2011 05:22:13 MMR 7 completed Not Available [facility] 05/03/2011 05:22:13 DTP 7 completed Not Available [facility] 05/03/2011 05:22:13 Hep B, unspecified formulation 8 completed Not Available [facility] 05/03/2011 05:22:13 Hib, unspecified formulation 8 completed Not Available [facility] 05/03/2011 05:22:13 DTP 8 completed Not Available [facility] 05/03/2011 05:22:13 DTP 1 completed Not Available [facility] 05/03/2011 05:22:41 Novel [id number] 9 completed Not Available [facility] 07/05/2019 02:28:15 Td (adult), 5 Lf tetanus toxoid, preservative free, adsorbed 9 completed Not Available [facility] 07/05/2019 02:36:22 influenza, unspecified formulation 0 completed Not Available [facility] 05/03/2011 05:22:41 Influenza, split virus, trivalent, PF 4 completed Not Available [facility] 07/05/2019 02:36:26 Influenza, split virus, quadrivalent, PF 5 completed Not Available [facility] 07/05/2019 02:26:43 pneumococcal polysaccharide PPV23 6 completed Not Available [facility] 07/05/2019 02:20:41 Influenza, split virus, quadrivalent, PF 6 completed Not Available [facility] 07/05/2019 02:33:42 Influenza, split virus, quadrivalent, PF 8 completed Not Available [facility] 07/05/2019 02:22:59 pneumococcal polysaccharide PPV23 0 completed TRAVIS Gutierrez [facility] 09/04/2019 10:46:18 COVID-19, mRNA, LNP-S, PF, 30 mcg/0.3 mL dose 1 [facility] 02/02[facility]2021 07:48:06 COVID-19, mRNA, LNP-S, PF, 30 mcg/0.3 mL dose completed Shantell Mariscal [facility] 02/02/2021 07:48:18 Past Encounters Encounter ID Performer Location Encounter Start Date Encounter Closed Date Diagnosis/Indication Diagnosis SNOMED-CT Code Diagnosis ICD10 Code Diagnosis Note [id number] Samara Adams MD Radiology , [facility] [address] [place] [address] 08/23/2000 16:30:00 07/08/2008 02:02:[id number] [facility] RADIOLOGY Technologi st Radiology , [facility] [address] [place] [address] 04/19/2000 13:30:00 07/08/2008 02:02:29 [id number] Jose Culver NP , [facility], OFFICE [address] [place] [address] 05/25/2009 09:42:40 05/25/2009 10:40:44 [id number] Jose Culver NP , [facility], OFFICE [address] [place] [address] 05/27/2009 08:10:52 05/27/2009 09:44:16 [id number] Jerrell Colbert MD , [facility], [address] [place] [address] 01/14/2010 13:25:53 01/17/2010 10:45:55 [id number] Debi Cedeno MD , [facility], [address] [place] [address] 04/07/2010 10:30:43 04/07/2010 12:46:32 [id number] Debi Cedeno MD , [facility], [address] [place] [address] 08/30/2010 08:09:14 08/30/2010 10:46:30 [id number] Robby Rivera MD , [facility], [address] [place] [address] 01/02/2011 11:01:29 01/03/2011 12:37:40 [id number] Robby Rivera MD , [facility], [address] [place] [address] 02/03/2011 14:30:48 02/03/2011 16:13:45 [id number] Milton Oquendo PA-C , [facility], [address] [facility] [place] [address] 02/08/2011 09:38:28 02/08/2011 10:42:06 [id number] Debi Cedeon MD , [facility], [address] [facility] [place] [address] 06/13/2011 13:57:16 06/13/2011 15:35:30 [id number] Chidi Mcallister MD , [facility], OFFICE [address] [place] [address] 02/15/2012 11:12:47 02/15/2012 11:49:36 [id number] Chidi Mcallister MD , [facility], [address]ICE [address] [place] [address] 08/13/2012 09:07:21 08/13/2012 10:38:26 [id number] Luis Duran i, PT Physical Therapy, [facility] [address] [place] [address] 08/20/2012 09:01:15 08/21/2012 09:54:13 [id number] Chidi Mcallister MD , [facility], OFFICE [address] [place] [address] 04/29/2013 16:46:14 04/30/2013 09:34:28 Tobacco user [id number] Seizure [id number] ?Seiszu re twice over the weekend. Denies drug/alcoh ol use. Unclear exactly what happened. Will get records. Mom will dispense ativan one at a time so he can take it. Has hx opiate abuse. Will get recoerds from [facility] and try to get in stat to neuro. Pt cannot drive until this is cleared by neuro. Pt and mom understand this. >50% 45 min coordinati ng care [id number] Chidi Mcallister MD , [facility], OFFICE [address] [place] [address] 05/14/2013 09:14:15 05/19/2013 09:08:59 Tobacco user 492069960 encouraged to quit Seizure [id number] Still unclear what exactly happened. Aileen and [...] valerian or melatonin at lowest possible dose. [id number] Chidi Mcallister MD , [facility], [address]ICE [address] [place] [address] 06/19/2013 13:41:50 06/19/2013 15:52:36 Adult health examination 536129951 Benign exam. FHx DM and very high TGL Influenza vaccine needed [id number] 106 Seizure [id number] Still unclear what exactly happened. Aileen is following him. [id number] MD ED Coon, [facility], [address] [place] [address] 09/03/2013 08:59:22 09/03/2013 09:37:47 Anxiety 13136378 Seems more stable since admission and new meds. To call [facility] to make sure has routine f/u for adjustment of meds as needed Epidermoid cyst of skin [id number] not much to see here. If recurs, use warm compresses , abx ointment and band aid to avoid chaffing and return to let me see it. [id number] Chidi Mcallister MD , [facility], [place]ICE [address] [place] [address] 09/26/2013 13:08:12 09/29/2013 08:24:11 Epidermoid cyst of skin 356971019 [id number] MD ED Coon, [facility], OFFICE [address] [place] [address] 07/23/2014 11:06:01 07/23/2014 12:00:58 Adult health examination 596014313 Exam done. Check labs Was on K+ for low potassium. now off it 3 days. Will repeat next week. Tobacco user 916418005 E ncouragd to quit Influenza vaccine needed [id number] 106 Anxiety 64385717 Startin g partial hospitaliz ation tomorrow to help adjust meds/suppo rt. On hydroxyzin e/zyprexa/ trazodone now. Risperadal was stopped. [id number] Stiven Whitley PA-C , [facility], [place]ICE [address] [place] [address] 03/11/2015 16:18:28 03/11/2015 21:43:53 Insomnia 669690134 Trazodone has helped in past, I'd rx this but now ok with hydroxyzin e only Urge incon tinence of urine 20325540 Suspect distractio n plus cayenne peppers or nicotine. Cut out these and see how doing. If not improving, consider uro referral Hypokalemia 36752931 omid ck today. If low, consider repleting again. [id number] Ld Faith MD , [facility], OFFICE [address] [place] [address] 07/07/2015 08:26:05 07/07/2015 14:47:32 Insomnia 930338340 G47.00 told to take atarax just at bedtime to aid in sleep Trazodone has helped in past, I'd rx this but now ok with hydroxyzin e only Schizoaffe ctive disorder 07029232 F25.9 needs Rx from [facility] [place] restarted Daytime somnolence 43193 86048 00 R40.0 likely due to taking atarax thrice daily, poss concurrren t viral syndrome asked him to take only at night as needed He and i agree he is too sleepy to drive, we will call mother to pick him up observe him [id number] Stiven Whitley PA-C , [facility], OFFICE [address] [place] [address] 07/12/2015 14:37:40 07/13/2015 08:47:14 Schizoaffective disorder 57286768 F25.9 Seems to do well with zyprexa 5mg bid and hydroxyzin e 25mg tid. Continue working on getting a therapist/ psychiatri st. [id number] Ld Faith MD , [facility], OFFICE [address] [place] [address] 08/16/2015 08:48:03 08/18/2015 09:20:20 Schizoaffective disorder 12002326 F25.9 Seems to do well with zyprexa 5mg bid and hydroxyzin e 25mg tid. Continue working on getting a therapist/ psychiatri st. Excessive somnolence 372 208317 R40.0 likely med related i asked him [...] , hypokinesi a, maked facies, and tremor), [id number] Stiven Whitley PA-C , [facility], OFFICE [address] [place] [address] 08/18/2015 14:35:24 08/18/2015 15:22:05 Schizoaffective disorder 97372166 F25.9 Feels like getting too tired but also anxiety is up. Try olanzepine 5mg at night and hydroxyzin e in am and in afternoon prn. If still too sleepy, stop olanzepine . Continue working on getting a psychiatri st. Excessive somnolence 372 620429 R40.0 likely med related [id number] Stiven Whitley PA-C , [facility], OFFICE [address] [place] [address] 08/26/2015 08:46:27 08/26/2015 09:59:28 Acute upper respiratory infection 19868362 J06.9 Seems like sinusitis. Will tx. continue mucinex and nasal saline [id number] Chidi Mcallister MD , [facility], OFFICE [address] [place] [address] 02/08/2016 14:40:58 02/08/2016 15:22:50 Cigarette smoker 58706538 F17.210 Tobacco user 931080350 Z 72.0 Encouragd to quit Diabetes mellitus 521831 09 E11.9 New dx. Now on metformin and lantus. He will call w/ needles and lancets when he knows specs.Refe r to DM ed. Standing orders Cellulitis and abscess of thigh 696500029 L02.415 Repacked. Still quite indurated. Repack at home q2 days and fu 1 week. [id number] KRISTAL Ramon DM Education , [facility] [address] [place] [address] 02/14/2016 13:16:57 02/22/2016 13:54:06 Uncontrolled type 2 diabetes mellitus 842828397 E11.65 [id number] Chidi Mcallister MD , [facility], [address]ICE [address] [place] [address] 02/15/2016 10:27:15 02/15/2016 11:05:38 Active or passive immunization 859696035 Z23 Diabetes mellitus 189868 09 E11.9 Improving. On lantus. Will max metformin. Informed s/s of low sugarsBook ing f/u w/ DM ed Cellulitis and abscess of thigh 975025403 L02.415 Improving. Will not pack again. If worsening, return Cigarette smoker 0596840 7 F17.210 Tobacco user 519543882 Z 72.0 Encouraged to quit. Precontemp lative [id number] Chidi Mcallister MD , [facility], OFFICE [address] [place] [address] 05/03/2016 09:28:17 05/03/2016 11:10:56 Acute upper respiratory infection 45898566 J06.9 Viral illness. Some RAD. Try albuterol and tesalon Diabetes mellitus 318869 09 E11.9 due for labs- will do today Cigarette smoker 4610744 7 F17.210 Tobacco user 943336975 Z 72.0 Encouraged to quit. Precontemp lativeHas decreased. Encouraged to keep this up [id number] MD ED Coon, [facility], OFFICE [address] [place] [address] 06/22/2016 08:44:05 06/22/2016 14:35:21 Cigarette smoker 14478104 F17.210 Tobacco user 318416819 Z 72.0 Encouraged to quit. Has decreased. Encouraged to keep this up Diabetes mellitus 309912 09 E11.9 A1C 7.6. Now on 20 units for past month. Will wait til next A1C Acute otitis media 10089 03 H66.92 improving. finish abx [id number] Chidi Mcallister MD , [facility], OFFICE [address] [place] [address] 08/02/2016 13:46:58 08/03/2016 13:52:34 Adult health examination 485100942 Z00.00 Exam done Counseling 620075307 Z71 .9 Cigarette smoker 3710626 7 F17.210 see below Tobacco user 709632121 Z 72.0 Encouraged to quit. Major depr ession, melancholic type 995972588 F32.9 Relatively stable on meds, but will write letter for [facility] to help him get services there. Can help w/ job options and clothing Diabetes mellitus 139327 09 E11.9 A1C 7.6. Now on 20 units for past month. Due for A1C Gastroesop hageal reflux disease 626516349 K21.9 on and off for a while now. Try PPI regularly for 2 wks then as needed. [id number] Chidi Mcallister MD , [facility], [address]ICE [address] [place] [address] 09/11/2016 08:55:58 09/12/2016 08:31:14 Cigarette smoker 11026232 F17.210 see below Tobacco user 908650419 Z 72.0 Encouraged to quit. Working with his son to decrease his moking and get healthier. Cellulitis and abscess of groin 166573275 L03.206 [id number] Chidi Mcallister MD , [facility], OFFICE [address] [place] [address] 03/08/2017 15:45:41 03/09/2017 09:27:53 Cigarette smoker 51956364 F17.210 see below Tobacco user 230925580 Z 72.0 Encouraged to decrease Diabetes mellitus 032488 09 E11.9 Tolerating meds well. Come for labs. Major depr ession, melancholic type 133659070 F32.9 improved after psych admit Seizure 14613934 R56.9 Unclear dx, but seen by neurology for this Schizoaffe ctive disorder 75757531 F25.9 Followed by psych. on invega sustana with good response. [id number] Chidi Mcallister MD , [facility], OFFICE [address] [place] [address] 04/03/2017 14:50:16 04/03/2017 15:26:15 Cigarette smoker 25314382 F17.210 Tobacco user 792412461 Z 72.0 Encouraged to quit Abdominal pain 43723140 R10.9 Unclear cause. Will repeat LFTs from ER and make sure not worsening. Get into GI- appt was made for a month or so Diabetes mellitus 886302 09 E11.9 Increase lantus to 12 units from 10 for now. Address more in 2 mos [id number] Ld Faith MD , [facility], OFFICE [address] [place] [address] 07/27/2017 08:35:56 07/30/2017 08:22:22 Cigarette smoker 85176392 F17.210 Did not address today.Smok ing increases infection risk & prolongs healing. Tobacco user 989034675 Z 72.0 Otitis media 43823496 H6 6.92 L OM with ruptured TM. Infection still present after finishing azithromyc in course. Will use clarithrom ycin due to numerous allergies & topical ear drops to protect ruptured TM. Insomnia 026931113 G47.0 0 Needs refill. [id number] Chidi Mcallister MD , [facility], OFFICE [address] [place] [address] 09/13/2017 10:55:25 09/13/2017 14:28:00 Diabetes mellitus 49072090 E11.9 Increase lantus to 12 units from 10 for now. Address more in 2 mos Schizoaffe ctive disorder 11854295 F25.9 Followed by psych. refill Cigarette smoker 1121763 7 F17.210 Tobacco user 244545965 Z 72.0 Encouraged to quit [id number] Purvi Murphy MD , [facility], OFF[address] [facility] [place] [address] 11/06/2017 12:31:51 11/06/2017 13:37:45 Cigarette smoker 01383833 F17.210 We discussed the [employer]uit[employer] program. Handout was provided. We discussed the health risks of smoking and the benefits of quitting. : smoking 1-2 cigs daily; started age 18; quit cold turkey in past We discussed text message support from [employer].Farshad lobato will consider signing up Tobacco user 883177999 Z 72.0 Acute otitis media 45093 03 H66.91 A: right TM is red and bulging; patient having worsening right ear pain the past 2 days Patient is allergic to penicillin s and bactrim and ceclor P: will prescribe clarithrom ycin 500 mg bid x 10 days [id number] Chidi Mcallister MD , [facility], OFFICE [address] [place] [address] 12/03/2017 15:03:06 12/03/2017 16:11:35 Benign essential hypertension 9644090 I10 See JOANNE below Mixed hyperlipidemia 267 772545 E78.2 Still a bit elevated Diabetes mellitus 313476 09 E11.9 Increase lantus to 18 units from 15 for now. Schizoaffe ctive disorder 98680060 F25.9 Followed by [facility] . Last Invega Sustina shot was midd Jul 2017, usually monthly.Ne w therapist at [facility] . Luis Mehta. Last saw him 11/28 and another 12/05. After that thinks will be able to see prescriber . Will see if [facility] can help move this ahead Proteinuria 05728306 R80 .9 start JOANNE Cigarette smoker 8535776 7 F17.210 Tobacco user 998248992 Z 72.0 Encouraged to quit [id number] Sohail Hassan Jr. MD , [facility], OFFICE [address] [facility] [place] [address] 02/06/2018 12:57:08 02/06/2018 15:07:01 Cigarette smoker 34673986 F17.210 Encouraged patient to cut back and consider cessation. Discussed risks associated with prolonged tobacco exposure. Discussed possibilit y of medication options to assist in cessation. Reviewed cessation support options available through [facility]. Approximat jj 3 minutes spent discussing smoking and strategies / reasons to quit. Long-term drug therapy 230583385 Z79.899 Normal QT intervals. [id number] Sohail Hassan Jr. MD , [facility], [address] [place] [address] 03/01/2018 09:04:23 03/01/2018 12:51:39 Cigarette smoker 72144768 F17.210 Encouraged patient to cut back and consider cessation. Discussed risks associated with prolonged tobacco exposure. Discussed possibilit y of medication options to assist in cessation. Reviewed cessation support options available through [facility]. Fredy gardner 3 minutes spent discussing smoking and strategies / reasons to quit. Mixed hyperlipidemia 267 780622 E78.2 continue to work on diet and exercise as discussed Active or passive immunization 491954406 Z23 Proteinuria 54566002 R80 .9 Improved. Encouraged patient to resume lisinopril and take regularly. Diabetes mellitus 015237 09 E11.9 Reviewed results of A1c. Discussed importance of remaining physically active. Suggested taking metformin 4 tablets all at the same time once a day to improve compliance . Foot exam and retinal exam updated today. [id number] Sohail Hassan Jr. MD , [facility], [address] [place] [address] 06/27/2018 14:50:06 06/27/2018 17:07:00 Schizoaffective disorder 69834084 F25.9 Symptomati c. Meets with therapist regularly. Would benefit from resuming medication s. 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 Diabetes mellitus 444786 09 E11.9 Poorly controlled . Does not appear to be taking metformin regularly. Proteinuria 84321281 R80 .9 Encouraged patient to resume lisinopril Chest pain 35712053 R07. 9 In the setting of poorly controlled diabetes and history of cocaine abuse. Patient is agreeable to emergency room evaluation . Spoke with emergency room physician regarding patient's symptoms and potential workup. [id number] Jr. MD ED Mckeon, [facility], [address] [place] [address] 07/08/2018 12:52:33 07/08/2018 13:42:43 Acute bronchospasm 0438748425 9100 J98.01 Discussed treatment options to include [...] use to avoid thrush. Thoracic back pain 29853 6050 M54.6 Advise conservati ve measures including stretching , massage, Acetaminop hen. Suggested options of chiropract ic care versus to physical therapy if symptoms persist. Nicotine dependence 5629 4008 F17.200 Encouraged patient to cut back and consider complete cessation. Discussed risks associated with prolonged tobacco exposure. Discussed possibilit y of medication options to assist in cessation. Reviewed cessation support options available through [facility]. [employer] 3 minutes spent discussing smoking and strategies / reasons to quit. Schizoaffe ctive disorder 54215119 F25.9 Symptomati c/Improved . Meets with therapist regularly. Verbally contracts for safety. Further management as determined by psychiatry .. Proteinuri a due to type 2 diabetes mellitus 1659426203 12095 E11.29 Blood sugar control has improved now [...] he has had only one positive result. [id number] Adelaida Wesley D.O. , [facility], [address] [place] [address] 07/15/2018 17:06:44 07/15/2018 17:46:01 Acute otitis media 0762301 H66.92 left otitis media [id number] Sohail Hassan Jr. MD , [facility], [address] [place] [address] 09/09/2018 12:39:54 09/09/2018 18:03:20 Cigarette smoker 40822069 F17.210 Encouraged patient to cut back and consider cessation. Discussed risks associated with prolonged tobacco exposure. Discussed possibilit y of medication options to assist in cessation. Reviewed cessation support options available through [employer]. [employer] 3 minutes spent discussing smoking and strategies / reasons to quit. Cellulitis of foot 71594 6007 L03.119 Clinically improving with clindamyci n. Encouraged completing antibiotic s. Infection complicate d by presence of diabetes diagnosis. Tinea pedis 4846471 B35. 3 Could consider additional prescripti on for topical corticoste roid. Lateral epicondylitis 20 4362528 M77.11 Advised relative rest, stretching , anti-infla mmatory medication s. Tennis elbow strap during work hours. Could consider formal physical therapy evaluation and treatment if symptoms not improving Diabetes mellitus 021280 09 E11.9 Has been taking metformin more consistent ly. Denies hypoglycem ia. Will update A1c test today. [id number] Betsy Mcneal NP , [facility], [address] [place] [address] 10/14/2018 14:32:33 10/14/2018 16:54:24 Cigarette smoker 26048316 F17.210 3+ minutes spent in smoking josé miguel liz. Rx given for nicotrol inhalers. Right uppe r quadrant pain 502292786 R10.11 Reviewed ddx including gastritis, GERD, cholelithi asis, kidney stone. Pt is nontoxic in appearance . Reviewed red flag sxs and when to RTO. Labs and ultrasound pending. [id number] Betsy Mcneal NP , [facility], [address] [place] [address] 11/29/2018 07:46:21 11/29/2018 12:53:20 Abscess 924840631 L02.91 s/p I&D in the ER. Healing well. Continue routine wound care. [id number] Lelia Young MD FP, [facility], [address] [place] [address] 01/31/2019 12:37:31 01/31/2019 13:15:33 Renal disorder due to type 2 diabetes mellitus 060309571 E11.22 POC A1C is 9 today. Reports missing diabetes medication a couple times a week and not checking blood sugars regularly. Would likely benefit from nutrition DM/Ed Cigarette smoker 7457810 7 F17.210 cutting back; only 1-2 cig a day; recommend complete cessation! Tobacco user 658426993 Z 72.0 Cellulitis of upper limb 014586524 L03.119 concerning for cellulitis ; I don't [...] prescriber of adverse effects or discontinu ation. [id number] Sohail Hassan Jr. FP, [facility], [address] [place] [address] 02/07/2019 09:19:23 02/07/2019 10:24:15 Cigarette smoker 45098720 F17.210 Encouraged patient to cut back and consider cessation. Discussed risks associated with prolonged tobacco exposure. Discussed possibilit y of medication options to assist in cessation. Reviewed cessation support options available through [employer]. Fredy gardner 3 minutes spent discussing smoking and strategies / reasons to quit. Abscess of upper limb 31 2334553 L02.419 Without evidence of abscess. Suspect diabetes is complicati ng symptom resolution . Patient with multiple medication allergies. Would recommend extending doxycyclin e as well as adding clindamyci n. Reviewed red flag symptoms and when to seek emergency care Body mass index 30+ - obesity 402059377 Z68.39 Discussed importance of increased physical activity. Encouraged eating regularly/ not skipping meals. Discussed importance of pain attention to portion size and making healthier selections with fresh fruits and vegetables . Encouraged minimizing empty calories found in soft drinks and alcoholic beverages. Discussed availabili ty of weight loss shared medical appointmen ts available through [employer]. Renal diso rder due to type 2 diabetes mellitus 396116822 E11.22 Continue with metformin and Lantus. Requested close follow-up for further evaluation and management of diabetes. [id number] Mable Alcantara MD FP, [facility], [address] [place] [address] 03/28/2019 08:56:22 03/28/2019 14:28:43 Acute upper respiratory infection 30622268 J06.9 Educated patient that URI is a [...] reminded to push water daily. Cigarette smoker 1492543 7 F17.210 Recommend cessation Schizoaffe ctive disorder 25595165 F25.9 Clinically stable on qmo Invega, prn hydroxyzin e. Uncontroll ed type 2 diabetes mellitus 039279987 E11.65 Last A1c 6wks ago high at 10. No known lows on current regimen. Increase Lantus to 20U qd and f/u with Dr Hassan as planned next month. Do lipid panel, BMP today. Wheezing 75541023 R06.2 ProAir inhaler renewed [id number] Sohail Hassan Jr. MD , [facility], [address] [place] [address] 09/02/2019 08:40:50 09/02/2019 09:21:17 Diabetes mellitus 68284155 E11.9 Noncomplia nt with medication s. Refill sent to pharmacy. A1c attempted today. Plan to address further labs at follow-up visit in 2 days Cigarette smoker 3768592 7 F17.210 Encouraged patient to cut back and consider cessation. Discussed risks associated with prolonged tobacco exposure. Discussed possibilit y of medication options to assist in cessation. Reviewed cessation support options available through [facility]. Fredy gardner 3 minutes spent discussing smoking and strategies / reasons to quit. Abscess of skin and/or subcutaneous tissue 90680874 L02.91 Reviewed culture results, advised to continue doxycyclin e & warm compresses . Requested follow up in two days. will speak ID specialist regarding antibiotic changes. Hidradenit is suppurativa 03405818 L73.2 Patient with recurrent infections and axilla and inguinal fold. Clinically suspicious for hidradenit is. In discussion with infectious disease specialist , will initiate topical clindamyci n. May require further evaluation by dermatolog y. [id number] Jr. MD ED Mckeon, [facility], [address] [place] [address] 09/04/2019 10:40:29 09/04/2019 11:05:30 Abscess of skin and/or subcutaneous tissue 82664290 L02.91 Clinically improving. Patient to complete course of doxycyclin e. Diabetes mellitus 362286 09 E11.9 Noncomplia nt with medication s. Patient to resume medication s. Would benefit from medical management follow-up within the next 3 months. Hidradenit is suppurativa 04037486 L73.2 Patient with recurrent infections and axilla and inguinal fold. Clinically suspicious for hidradenit is. In discussion with infectious disease specialist , will initiate topical clindamyci n. May require further evaluation by dermatolog y. [id number] KRISTAL Bee , [facility], OFFICE [address] [place], [place] [address] 12/31/2019 15:16:51 01/01/2020 11:53:25 Type 2 diabetes mellitus 01936797 E11.9 Pt feeling weak, fatigued, dizzy, lightheade d, nauseous, chest discomfort , polyuria, SOB x several daysEviden ce of slowed speech over phone visit, unable to visually evaluate patient Has not taken DM meds in > 1 weekCannot find testing supplies at homeConcer n for hyperglyce donna or DKA, [facility], will drive himReport called [facility] to notify of his arrivalWil l order new DM supplies and routine labsPlan for f/u with PCP Cigarette smoker 5122180 7 F17.210 did not address given current medical status Tobacco user 508786156 Z 72.0 as above [id number] Sohail Hassan Jr. MD , [facility], OFF[address] [facility] [place] [address] 01/08/2020 14:42:10 01/08/2020 16:08:49 Schizoaffective disorder 94773343 F25.9 Symptomati c/Improved . Meets with therapist regularly. Verbally contracts for safety. Further management as determined by psychiatry .. Diabetes mellitus 434177 09 E11.9 Noncomplia nt with medication s. Patient to resume medication s. Advised appropriat e way to titrate metformin to avoid diarrhea symptoms. Continue with Lantus. Requested patient schedule labs soon and arrange medical management visit in 8 weeks. [id number] Jerrell Colbert MD , [facility], OFF[address] [facility] [place] [address] 01/21/2020 13:43:30 01/21/2020 15:25:23 Pain of right shoulder joint 5825201560 8168942 M25.511 continue ice, aleve--PT- -is work related injury, no lifting/ov erhead work for a week [id number] Jerrell Mar, PT Physical Therapy, [address] [address] 01/27/2020 14:02:18 01/28/2020 08:05:42 Tendinitis of right shoulder 1690261710 527310 M75.91 [id number] Jerrell Mar PT Physical Therapy, [address] [address] 02/03/2020 15:13:30 02/04/2020 16:06:19 Tendinitis of right shoulder 3874272452 760058 M75.91 [id number] Rosmery Aleman DNP , [facility], OFFICE [address] [place] [address] 12/31/2020 14:24:40 01/03/2021 06:42:50 Cigarette smoker 21007008 F17.210 Tobacco user 985019853 Z 72.0 Nausea and vomiting 1692 1999 R11.2 mild nausea persists, emesis x 2 this am Diabetes mellitus 120153 09 E11.9 Diarrhea 82122663 R19.7 took one dose pepto this morning but did not help. will repeat. reports 10 BMs today, decreasing in frequency as day progressed . [id number] Adelaida Wesley D.O. , [facility], [address] [place] [address] 02/02/2021 07:38:24 02/02/2021 08:07:47 Cigarette smoker 32388190 F17.210 2-3 cigarettes a day, he works at [employer] discussed adverse effects coupled with DM, Obesity and how that leads to heart disease. Tobacco user 127598043 Z 72.0 above Infection of skin and/or subcutaneous tissue 54501195 L08.9 on the mons ubis there are 2 areas of erythema, mild induration , no drainage,a febrile Obesity 664466748 E66.9 BMI today 37.8 discussed need for decreasing , will follow up with dr. Hassan EMR/Labs/M edications /Consults reviewed Hypertriglyceridemia 302 694756 E78.1 last lipids 12/2019 167/343/28 LDL 89 discussed adverse effects of elevated triglyceri carrol, will get new labs fasting and follow up with Dr. Collazo/ Labs/Medic ations/Lazaro del rosario reviewed Uncontroll ed type 2 diabetes mellitus [id number] E11.65 A1c 10.4 12/2019 will repeat labs ( his brother recently , pneumonia and covid) He has not been taking. EMR/Labs/M edications /Consults reviewed [id number] RAJ Carrillo MD , [facility], OFFICE [address] [place] [address] 02/21/2021 09:57:37 02/21/2021 11:00:11 Cigarette smoker [id number] F17.210 Currently smoking 3-4 cigarettes per day. Reviewed associatio n between HS and tobacco use. Has tried gum, patch. Declines additional support at this time. Tobacco user [id number] Z 72.0 Hidradenit is suppurativa [id number] L73.2 C/W hidradenit is suppurativ e. Reviewed diagnosis, management . Continue oral doxycyclin e, topical clindamyci n. Work note provided for today. Suspect that patient will be able to return 02/22/21. [id number] Sohail Hassan Jr. MD , [facility], OFFICE [address] [place] [address] 02/25/2021 15:18:03 02/25/2021 17:19:40 Hidradenitis suppurativa [id number] L73.2 Now seen for this issue for [...] with us if worsening or not improving. [id number] Adelaida Wesley D.O. , [facility], OFFICE [address] [facility] [place] [address] 03/10/2021 11:42:23 03/10/2021 12:21:07 Cigarette smoker [id number] F17.210 Considerin g quitting. Has the inhaler at home.Reinf orced benefits of quitting and reviewed NRT options. Tobacco user [id number] Z 72.0 Thoracic back pain [id number] M54.6 Discussed pathophysi ology of acute [...] fails to resolve with conservati ve care. [id number] Jerrell Colbert MD , [facility], OFFICE [address] [facility] [place] [address] 03/17/2021 10:18:21 03/17/2021 11:37:36 Thoracic back pain [id number] M54.6 resume flexeril. Reommend PT, will check into [place] area, lives there now. Continue heat/ice. Health Concerns Section Related Observation LastModified by Organization Detai ls LastModified Time None Recorded Concern Status LastModified by Organization Details LastModified Time None Recorded Advance Directives Directive N: Given Form @ [facility] on 05/27, 06/19/13 Payers Insurance Date Sequence Insurance Name Policy Number Policy Leonardo Covered Member ID Leonardo Member ID Guarantor Name 10/24/2024 1 [place] PRIOR TO 2022 - MERGED WITH [facility] (MEDICAID) He D Gold[place] [id number] [place] D [place] 10/24/2024 1 [place] [facility] He D Goldy [id number] He D Goldy 07/06/2021 [facility] He D [place] 10/24/2024 1 [place] [facility] He D Goldy [id number] He D [place]y 10/24/2024 1 [place] [facility] [place] He [place] [id number] He D Goldy 05/26/2000 1 *SELF PAY* Br andon D Goldy 10/17/2000 1 *SELF PAY* Br andon D [place] 05/11/2009 1 [facility] PLAN (HMO) Manjula Goldy [id number] He D [place] 10/24/2024 1 [place] [facility] [place] He [place] [id number] He D Goldy 10/24/2024 1 [facility] (MEDICAID HMO) [id number] He D [place] [id number] He D Goldy Notes Date Note Type Note Provider Name and Address Organization Details Recorded Time 02/02/2021 text/html a/vmg-smoking [id number] bypatient.ImportanceOn a scale of 1-10 with 1 [...] about 2-3 a day. Jacqui Vega PA-C [address] [place], [phone], [facility] 02/02/2021 08:16:05 02/21/2021 text/html a/vmg-smoking [id number] bypatient.ImportanceOn a scale of 1-10 with 1 [...] can go to work today. Works at [employer]. Supposed to go in at 10:30am today.Started medication on Sunday. KRISTAL Robles [address] [place], [address], [facility] 02/21/2021 10:44:44 02/25/2021 text/html 35M patient of Rambo Hassan with PMH DM2, obesity, schizoaffective DO, active smoker presents for same-day visit to discuss: #Hidradenitis suppurativaPatient with visits 02/02/21 and 02/21/21 for this same issueTaking doxycycline and mupirocin, stopped clindamycin.Never followed up with dermatology.No fevers, no nausea/vomiting. RAJ GALARZA MD [address] [place] [address], [phone], [facility] 02/25/2021 17:13:27 03/10/2021 text/html a/VMG-Back PainR eported bypatient.Duration:Pres ent for 1-2 days Location:pain: in the lower back: midline; pain: in the upper back: midline Quality:Pain is constant;Pain is dull ache Severity:pain level 01/25 Context:Pt woke up with pain yesterday Aggravating factors:movement/positi oning Alleviating factors:Improved by rest; relieved by changing position; heating pad, IBU/naproxen helped a little Associated Symptoms:no fever; no weak limbs; no tingling; no numbness of the legs/feet; no incontinenceNotes:Worst pain between shoulder blades, radiating to neckRegular heavy lifting at work at [employer].No obvious injury.After high school injury 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 No leg weakness/numbness. Jerrell Colbert MD [address] [place] [address], [phone], [facility] 03/17/2021 10:56:39
== END 2024-12-02 16:18 | disposition home or self-care (01) ==
LOC: HO.ENCR 15:25
PROVIDERS: PCP Nurse Practitioner Family; Visit Provider Physician Assistant Medical
DX: E11.65 Type 2 diabetes mellitus with hyperglycemia (principal)

== ENCOUNTER → 2024-12-02 15:24 | Outpatient (BNVA) | payer OTHER, SELFPAY | PROVIDERS: PCP Nurse Practitioner Family; Visit Provider Physician Assistant Medical | DX: E11.65 Type 2 diabetes mellitus with hyperglycemia (principal); R79.89 Other specified abnormal findings of blood chemistry | CPT/HCPCS: 82947; 99202 ==

== ENCOUNTER 2025-01-19 08:21 | Outpatient (AMB) | payer OTHER, SELFPAY ==
[2025-01-19 08:31] VITALS: BP 112/78; PULSE 76; RESP 16; TEMP 36.8; O2SAT 95; BMI 37.1
--- NOTE | 2025-01-19 08:31 | A.OFFPC_ITS ---
Vital Signs 01/19/25 08:31 Height 5 ft 4 in Weight 216 lb BMI 37.1 BP 112/78 Blood Pressure Location Lt brachial Position Sitting Respiration 16 Pulse 76 Pulse Source Pulse Oximeter Temp 98.3 F Temp Source Oral Pulse Oximetry (%) 95 Oxygen Delivery Method Room Air Intake Visit Reasons: PE- repeat A1C Allergies cefaclor (From Ceclor) Allergy (Mild, Verified 01/19/25 09:00) Rash sulfamethoxazole (From Bactrim) Allergy (Mild, Verified 01/19/25 09:00) Rash trimethoprim (From Bactrim) Allergy (Mild, Verified 01/19/25 09:00) Rash metformin Adverse Reaction (Intermediate, Verified 01/19/25 09:00) Nausea cillins Allergy (Intermediate, Uncoded 01/19/25 09:00) Anaphylaxis Medication List - Last Reconciled 01/19/25 by Luis Rojas, RN TRANSITIONAL- aripiprazole 5 mg PO DAILY atorvastatin 10 mg PO BEDTIME 90 days blood sugar diagnostic (FreeStyle Lite Strips) tid testing blood-glucose meter (FreeStyle Lite Meter kit) TID testing bupropion HCl XL 150 mg PO DAILY dulaglutide (Trulicity) 0.75 mg (0.5 mL) subcut QWEEK empagliflozin (Jardiance) 25 mg PO DAILY glucose (Dex4 Glucose Quick Dissolve) 16 grams (4 x 4 gram) PO Q15M PRN lamotrigine 50 mg PO DAILY lancets (FreeStyle Lancets) TID testing paliperidone palm (3 month) (Invega Trinza) mg IM Tobacco use date assessed: 01/19/25 Dental Screening Dental Screen Date: 01/19/25 Did you have a dental visit in the last 12 months?: No Did you have a dental problem in the last 6 months where you did not have access to dental care?: No Was dental information given to patient?: No HPI PE- repeat A1C HPI Details History of Present Illness The patient is a 39-year-old male presenting for a physical exam and diabetes management. The patient has a history of diabetes mellitus with a current hemoglobin A1c of 8.9%, indicating poor glycemic control. He reports increased nighttime snacking, which he acknowledges needs to be addressed. The patient is currently on Trulicity, which will be increased from 0.75 mg to 1.5 mg weekly to improve glycemic control. The patient denies experiencing polyuria, polydipsia, or neuropathy, and reports no fevers, chills, chest pain, dyspnea, abdominal pain, hematochezia, constipation, or diarrhea. He is compliant with his medications and follows up regularly with a psychiatrist for schizophrenia management. The patient reports doing well overall, despite working long hours. The patient is noted to be obese, and his feet were intact with positive sensation upon monofilament testing bilaterally. Health Maintenance - Annual eye examination for diabetes paz mcmahan Social History - Employment: Reports working long hours Review of Systems - General: Denies fevers, chills - Cardiovascular: Denies chest pain, dys pnea - Gastrointestinal: Denies abdominal panfilo n, hematochezia, constipation, diarrhea - Neurological: Denies polyuria, polydip rylan, neuropathy - Psychiatric: Denies suicidal ideation, homicidal ideation Physical Exam General: Cooperative, healthy appearing, comfortable, no acute distress and well developed Orientation: Patient oriented x3 Limitations: No limitations Head: Normal to inspection Ears: Hearing grossly normal bilaterally Nose: Normal external nose present Face and sinus: Normal facial exam Eyes: Appearance normal, both eyes and all related structures Neck: Normal visual inspection and Yes full ROM Respiratory: Normal respiratory effort and able to speak in complete sentences. Clear to auscultation bilaterally Cardiovascular: Regular rate and rhythm. Normal S1 and S2 GI: Normal to inspection. Soft to palpation and nontender : testicles without masses/lesions and no hernias appreciated Skin: No rashes or lesions noted Neuro: Patient oriented x3 Extremities: Normal to inspection, feet were intact bilaterally with positive sensation using monofilament Results - Labs: Hemoglobin A1c 8.9% Plan The patient's diabetes management plan includes increasing the dosage of Trulicity from 0.75 mg to 1.5 mg weekly to improve glycemic control. He is advised to reduce nighttime snacking to help manage his blood glucose levels. The patient is reminded of the importance of annual eye examinations as part of his diabetes management plan. He is encouraged to continue regular follow-ups with his psychiatrist for schizophrenia management. Discussion Notes I discussed with the patient the need to increase his Trulicity dosage to better manage his diabetes and emphasized the importance of reducing nighttime snacking. We also reviewed the necessity of annual eye exams and maintaining regular psychiatric follow-ups. Patient Instructions - Increase Trulicity dosage to 1.5 mg krishna hendrickson. - Reduce nighttime snacking to help cont rol blood sugar levels. - Schedule and attend annual eye exams. - Continue regular follow-ups with your psychiatrist. [facility] Medical History Diabetes mellitus with hyperglycemia Suicidal ideation Schizo affective schizophrenia Surgical History S/P cholecystectomy S/P tonsillectomy S/P panniculectomy Social History Housing: House Patient Tobacco Use Status: Former Tobacco user Cigarettes Per Day: 4 e-Cigarette/Vaping Use: Currently Using Second Hand Smoke Exposure: No service: No Current occupational status: employed Cognitive needs: No Hearing needs: No Vision needs: No Questionnaire PHQ-9 Over the last 2 weeks, how often have you been bothered by any of the following problems? 1. Little interest or pleasure in doing things: several days 2. Feeling down, depressed, or hopeless: several days 3. Trouble falling or staying asleep, or sleeping too much: not at all 4. Feeling tired or having little energy: several days 5. Poor appetite or overeating: more than half the days 6. Feeling bad about yourself - or that you are a failure or have let yourself or your family down: several days 7. Trouble concentrating on things, such as reading the newspaper or watching television: several days 8. Moving or speaking so slowly that other people could have noticed. Or the opposite - being so fidgety or restless that you have been moving around a lot more than usual: not at all 9. Thoughts that you would be better off or of hurting yourself in some way: not at all Total score: 7 Depression Screening Interpretation: Negative Depression Screening Done: Yes 17320 - PHQ-9 Billing: Yes Source: Developed by Drs. Ld Miller, Talia Gu, Isaac Hooks and colleagues, with an educational alfonso from [employer]. Thrive Questionnaire Date Thrive assessed: 08/04/24 I am a: Parent/Caregiver What is your living situation today?: I have a steady place to live Within the past 12 months, did the food you bought not last and you didn't have the money to get more?: Sometimes True Within the past 12 months, did you worry whether your food would run out before you got money to buy more?: Sometimes True Do you have trouble paying for medicines?: No Do you have trouble getting transportation to medical appointments?: No Do you have trouble paying your heating and electricity bill?: Yes Do you have trouble taking care of your child, family member or friend?: No Do you have trouble with day-to-day activities such as bathing, preparing meals, shopping, managing finances, etc.?: No Are you currently unemployed and looking for a job?: No Are you interested in more education?: No Currently or been in a relationship where the following occur: No concerns reported THRIVE Score: 3 KATIE-7 AMB Questionnaire KATIE-7 Date KATIE - 7 assessed: 01/19/25 Feeling nervous, anxious, or on edge: 1 = Several days Not being able to stop or control worryin = Several days Worrying too much about different things: 1 = Several days Trouble relaxin = Several days Being so restless that it is hard to sit still: 0 = Not at all Becoming easily annoyed or irritable: 0 = Not at all Feeling afraid as if something awful might happen: 1 = Several days Total KATIE-7 score (0-4 normal; 5-9 mild; 10-14 moderate; 15-21 severe): 5 Source: Developed by Drs. Ld Miller, Talia Gu, Isaac Hooks and colleagues, with an educational alfonso from [employer]. KATIE-7 Assessment Billing KATIE-7 Assessment Tool: KATIE-7 Assessment 40656 Physical exam (Primary Care) Vital Signs: Last Vital Signs Temp 98.3 F 01/19/25 08:31 Pulse 76 01/19/25 08:31 Resp 16 01/19/25 08:31 BP 112/78 01/19/25 08:31 Pulse Ox 95 01/19/25 08:31 Oxygen Delivery Method Room Air 01/19/25 08:31 BMI result Body Mass Index 37.1 Tobacco/Smoking Status: Tobacco use Status Tobacco use date assessed 01/19/25 01/19/25 08:34 Patient Tobacco Use Status Former Tobacco user 01/19/25 08:34 e-Cigarette/Vaping Use Currently Using 01/19/25 08:34 PHQ-9: PHQ-9 Score PHQ-9: Total score 7 01/19/25 08:41 Depression Screening Interpretation: Negative Thrive Assessment: Date of Thrive Assessment Date Thrive assessed 08/04/24 01/19/25 08:34 Currently or been in a relationship where the following occur: No concerns reported Results AMB Hemoglobin A1c AMB Hemoglobin A1c 8.9 % Last Edit by Jessica Logan MA on 01/19/25 08:49 Results Reviewed Results Reviewed: Laboratory Last Values Hgb A1c (Clinic) 8.9 % (4.0-6.0) H 01/19/25 08:33 Coding Level of Care Code Est Pt Level 3 (23228) Est Pt Prev Care 18-39y(36728) Diagnoses Diabetes E11.9 Encounter for routine adult physical exam with abnormal findings Z00.01 Additional Codes KATIE-7 Assessment Billing - KATIE-7 Assessment Tool: KATIE-7 Assessment 50710 ([id number]) PHQ-9 - 61643 - PHQ-9 Billing: Yes ([id number]) Assessment & Plan Assessment & Plan (1) Diabetes: Code(s): E11.9 - Type 2 diabetes mellitus without complications Category: Medical (2) Encounter for routine adult physical exam with abnormal findings: Code(s): Z00.01 - Encounter for general adult medical examination with abnormal findings Category: Medical Plan . Orders: Orders Microalbumin, Random (w Creat) Today E11.9 - Type 2 diabetes mellitus without complications AMB Hemoglobin A1c Today Z13.9 - Encounter for screening, unspecified Medications: Changed From dulaglutide (Trulicity) 0.75 mg (0.5 mL) subcut QWEEK 2 mL 0RF To dulaglutide 1.5 mg (0.5 mL) subcut QWEEK 2.5 mL 0RF 30 days
--- OUTSIDE RECORDS SUMMARY | 2025-01-19 08:36 | XMS_ITS | Encounter Summary ---
Author Organization [facility] Address [address] [place] [phone] Phone Care Team Providers Care Manager Green Name Role Phone Stiven Whitley PA-C Primary Care Provider [phone] Abram Win MD Unavailable [email or web address] Ld Faith MD Unavailable [phone] Purvi Murphy MD Unavailable [phone] Sohail Hassan MD Unavailable [phone] Jerrell Colbert MD Unavailable [phone] Moraima Luther RN Unavailable Sohail Hassan MD Primary Care Provider + [phone] Sohail Hassan MD Unavailable [phone] Luis Rojas NP Primary Care Provider + Encounter Details Date Type Department Care Team (Late st Contact Info) Description 05/07/2017 Procedure Pass [facility]oscopy Admitting Dept Virtual Department [address] [place] [address] Social History Tobacco Use Types Packs/Day Years Used Date Smoking Tobacco: Light Smoker Smokeless Tobacco: Never Comments:2 cigarettes daily Alcohol Use Standard Drinks/Week Comments No 0 (1 standard drink = 0.6 oz pur e alcohol) Sex and Gender Information Value Date Recorded Sex Assigned at Male 09/02/2018 9:07 PM EDT Legal Sex Male 10:27 PM EDT Gender Identity Male 09/02/2018 9:07 PM EDT Sexual Orientation Choose not to disclose 2023 5:04 AM EDT documented as of this encounter Plan of Treatment Not on file documented as of this encounter Visit Diagnoses Not on filedocumented in this encounter Care Teams Manager Green Relationship Specialty Start Date End Date Stiven Whitley PA-C [address] [place] [address] [address] [place] [address] PCP - General 04/23/17 11/22/20 Sohail Hassan MD [address] [place] [phone] [email or web address] PCP - General Family Medicine 11/23/20 12/03/23 Luis Rojas NP [address] [place] [phone] [email or web address] PCP - General Nurse Practitioner 12/04/23 Abram Win MD [email or web address] Insurance Assigned Provider 09/15/17 02/16/18 dL Faith MD [address] [place] [phone] [email or web address] Insurance Assigned Provider 02/16/18 03/23/18 Purvi Murphy MD [address] [place] [phone] [email or web address] Insurance Assigned Provider 03/23/18 09/21/18 Sohail Hassan MD [address] [place] [address] [email or web address] Insurance Assigned Provider 09/21/18 11/21/20 Jerrell Colbert MD [address] [place] [phone] [email or web address] Insurance Assigned Provider 11/21/20 12/25/20 Moraima Luther RN [address] [place] [address] [email or web address] 11/23/20 01/05/21 Sohail Hassan MD [address] [place] [address] [email or web address] Insurance Assigned Provider 12/25/20 11/26/21 documented as of this encounter Additional Source Comments The information contained in this document represents components of the legal health record. It is not the complete legal health record.[facility]
== END 2025-01-19 09:15 | disposition home or self-care (01) ==
LOC: HO.HMCC 08:22
PROVIDERS: PCP Nurse Practitioner Family; Visit Provider Nurse Practitioner Family
DX: Z00.01 Encounter for general adult medical examination with abnormal findings (principal); E11.9 Type 2 diabetes mellitus without complications

== ENCOUNTER → 2025-01-19 08:21 | Outpatient (BNVA) | payer OTHER, SELFPAY | PROVIDERS: PCP Nurse Practitioner Family; Visit Provider Nurse Practitioner Family | DX: Z00.01 Encounter for general adult medical examination with abnormal findings (principal); E11.9 Type 2 diabetes mellitus without complications; Z79.85 Long-term (current) use of injectable non-insulin antidiabetic drugs; Z13.31 Encounter for screening for depression; Z13.39 Encounter for screening examination for other mental health and behavioral disorders | CPT/HCPCS: 83036; 96127; 99395 ==

== ENCOUNTER 2025-03-12 07:46 | Outpatient (REF) | payer OTHER, SELFPAY ==
[2025-03-12 10:17] LABS: MANUAL DIFF FLAG NO
[2025-03-12 10:29] LABS: Hematocrit 44.4 % (42.0-52.0); Hemoglobin 16.4 g/dl (14.0-18.0); Imm Gran Abs Auto 0.53 X10*3/uL (0.00-0.03); Imm Gran Pct Auto 4.7 % (0.0-0.4); Lymphocytes Absolute Auto 2.5 X10*3/uL (1.2-4.9); Mean Corpuscular HGB Conc 36.9 g/dl (31.0-36.0); Mean Corpuscular Hemoglobin 31.2 pg (27.0-33.0); Mean Corpuscular Volume 84.6 fL (80.0-98.0); NRBC Abs Auto 0.000 X10*3/uL (0.0-0.012); NRBC Pct Auto 0.0 /100WBC (0.0-0.2); Platelet Count 284 X10*3/uL (160-400); Red Blood Count 5.25 X10*6/uL (4.60-5.80); White Blood Count 11.2 X10*3/uL (4.8-10.8)
[2025-03-12 10:53] LABS: Alanine Aminotransferase 52 U/L (0-40); Albumin Level 4.3 g/dL (3.5-5.0); Alkaline Phosphatase 66 U/L (39-117); Anion Gap 11 (12-20); Aspartate Amino Transferase 34 U/L (5-37); Blood Urea Nitrogen 12 mg/dL (9-16); Calcium 8.6 mg/dL (8.4-10.2); Carbon Dioxide 22 mmol/L (22-29); Chloride 112 mmol/L (96-108); Estimated Glomerular Filt Rate > 60; Potassium 4.0 mmol/L (3.3-5.1); Sodium 141 mmol/L (135-145); Total Protein 6.4 g/dL (6.5-8.0)
== END 2025-03-12 07:47 | disposition home or self-care (01) ==
LOC: HO.HMGCLDS 07:46
PROVIDERS: PCP Nurse Practitioner Family; Visit Provider Physician Assistant Medical
DX: R10.11 Right upper quadrant pain (principal)
CPT/HCPCS: 36415; 80053; 85025; 99212

== ENCOUNTER 2025-03-12 07:46 | Outpatient (AMB) | payer OTHER, SELFPAY ==
[2025-03-12 07:48] VITALS: BP 100/60; PULSE 88; RESP 15; O2SAT 95; BMI 37.2
--- NOTE | 2025-03-12 07:48 | MHC.OFFWIV ---
Intake Vital Signs 03/12/25 07:48 Height 5 ft 4 in Weight 217 lb BMI 37.2 BP 100/60 Blood Pressure Location Rt brachial Position Sitting Respiration 15 Pulse 88 Pulse Source Pulse Oximeter Pulse Oximetry (%) 95 Oxygen Delivery Method Room Air Intake Visit Reasons: EP Pain in liver area, hurst to breath Intake Note: Pt is here today c/o RUQ pain since last night, chills and hurts when taken a deep breath Patient Tobacco Use Status: Former Tobacco user Allergies cefaclor (From Ceclor) Allergy (Mild, Verified 03/12/25 07:50) Rash sulfamethoxazole (From Bactrim) Allergy (Mild, Verified 03/12/25 07:50) Rash trimethoprim (From Bactrim) Allergy (Mild, Verified 03/12/25 07:50) Rash metformin Adverse Reaction (Intermediate, Verified 03/12/25 07:50) Nausea cillins Allergy (Intermediate, Uncoded 03/12/25 07:50) Anaphylaxis HPI HPI Comments History of Present Illness Details History of Present Illness - The patient is a 39-year-old male presenting with right upper quadrant pain. - The pain began last night and is severe, improving slightly by morning, and worsens with deep breathing. - The patient has a history of gallbladder removal and reports similar pain previously associated with gallbladder issues. - The patient has been informed of fatty liver changes in the past, with no recent alcohol use, having stopped four years ago. - No nausea, vomiting, diarrhea, or melena reported, but chills were experienced last night. - The patient has a history of gastroesophageal reflux disease, but the current pain feels different from reflux symptoms. - The patient is on Jardiance for type 2 diabetes mellitus, with no insulin use. - He denies fever, chills, CP, SOB, n/v/d, melena, hematochezia, or back pain. Physical Exam General: Cooperative, healthy appearing, comfortable, no acute distress and well developed Orientation: Patient oriented x3 Limitations: No limitations Eyes: Appearance normal, both eyes and all related structures. No icterus noted. Respiratory: Normal respiratory effort and able to speak in complete sentences. Clear to auscultation bilaterally. No w/r/r noted. Cardiovascular: Regular rate and rhythm. Normal S1 and S2. No m/r/g noted. GI: Hypoactive BS noted. Soft, distended. TTP of the RUQ. Guarding noted. Negative Toro's noted. Negative Rovsing noted. Negative CVA tenderness noted. Skin: No rashes or lesions noted. No jaundice. Patient was informed and verbally consented to the use of an ambient scribe for clinic note documentation during this visit. [facility] Medical History Diabetes mellitus with hyperglycemia Suicidal ideation Schizo affective schizophrenia Surgical History S/P cholecystectomy S/P tonsillectomy S/P panniculectomy Social History Housing: House Patient Tobacco Use Status: Former Tobacco user Cigarettes Per Day: 4 e-Cigarette/Vaping Use: Currently Using Second Hand Smoke Exposure: No service: No Current occupational status: employed Cognitive needs: No Hearing needs: No Vision needs: No Review of Systems Const All systems reviewed & are unremarkable except as noted in HPI and below Physical Exam Vital Signs: BMI result Body Mass Index 37.2 Assessment & Plan Assessment & Plan (1) RUQ abdominal pain: Code(s): R10.11 - Right upper quadrant pain Plan Most likely RUQ pain due to choledocholithiasis vs fatty liver vs hepatitis plan - Plan to conduct blood tests to assess liver function and rule out infection. - Ultrasound of the abdomen is considered to evaluate liver and gallbladder region, pending availability of the ordering physician. - If liver enzymes are significantly elevated or if there is a high white blood cell count, the patient may need to visit the emergency room. - Monitor liver function tests as part of the blood work to assess the current status of fatty liver. - continue with regular medications - check BS at home - diet as tolerated - needs a f/u with PCP Orders: Orders US abdomen limited Today R10.11 - Right upper quadrant pain Comprehensive Met. Panel Today R10.11 - Right upper quadrant pain Complete Blood Count Auto Diff Today R10.11 - Right upper quadrant pain Coding Level of Care Code Est Pt Level 4 (53862) Diagnoses RUQ abdominal pain R10.11
--- OUTSIDE RECORDS SUMMARY | 2025-03-12 07:50 | XMS_ITS | Clinical Summary ---
Author Organization [facility] Address [address] [address] Phone Care Team Providers Care Client Resource Specialist Name Role Phone Luis Rojas NP Primary Care Provider + Allergies Active Allergy Reactions Criticality Noted Date Comments Amoxicillin Anaphylaxis High 05/07/2017 Sulfamethoxazole-Trimethoprim Hives 2016 Cefaclor 05/07/2017 rash Penicillins Anaphylaxis High 05/07/2017 Medications * This document contains information received from the source organization and may not represent a complete record from that organization. paliperidone palmitate (INVEGA SUSTENNA) 78 mg/0.5 mL Syrg IM injection syringe Inject 78 mg into the muscle every 28 days. Active atorvastatin (LIPITOR) 10 MG tablet Take 10 mg by mouth daily. 10/25/2023 Active clonazePAM (KLONOPIN) 0.5 MG tablet Take 0.5 mg by mouth 2 (two) times a day as needed for anxiety. 12/10/2023 Active JARDIANCE 25 mg tablet Take 25 mg by mouth every morning. 12/10/2023 Active losartan (COZAAR) 25 MG tablet Take 1 tablet by mouth every morning. 11/08/2023 Active traZODone (DESYREL) 50 MG tablet Take 1 tablet (50 mg total) by mouth nightly at bedtime as needed (Difficulty sleeping). 14 tablet 12/17/2023 Active hydrOXYzine (ATARAX) 50 MG tablet Take 1 tablet (50 mg total) by mouth 2 (two) times a day as needed for anxiety. 28 tablet 12/17/2023 Active cloNIDine HCL (CATAPRES) 0.1 MG tablet Take 1 tablet (0.1 mg total) by mouth 2 (two) times a day as needed (Anxiety). 28 tablet 12/17/2023 Active lamoTRIgine (LAMICTAL) 25 MG IMMEDIATE release tablet Take 1 tablet (25 mg total) by mouth daily. 14 tablet 12/18/2023 Active ARIPiprazole (ABILIFY) 5 MG tablet Take 1 tablet (5 mg total) by mouth daily. 14 tablet 12/17/2023 Active Active Problems Problem Noted Date Diagnosed Date Intentional benzodiazepine overdose 12/13/2023 Schizoaffective disorder 12/13/2023 Bipolar disorder 12/13/2023 Social History Tobacco Use Types Packs/Day Years Used Date Smoking Tobacco: Light Smoker Smokeless Tobacco: Never Comments:2 cigarettes daily Alcohol Use Standard Drinks/Week Comments No 0 (1 standard drink = 0.6 oz pur e alcohol) Education Answer Date Recorded Are you interested in more education? Not on nemesio e 10/13/2022 Are you concerned about learning? Not on file 10/13/2022 No 10/13/2022 No 10/13/2022 Digital Access Answer Date Recorded No 12/13/2023 Yes 12/13/2023 Do you have reliable internet access at home? Ye s 12/13/2023 Do you have a device (e.g., phone, tablet, computer) with a working camera? Yes 12/13/2023 Intimate Partner Violence Answer Date R ecorded Are you denied basic needs s uch as food, clothing, or medical care? No 12/12/2023 In the past 12 months have y ou been in a relationship with a person who hurts, threatens, or tries to control you? No 12/12/2023 Are you denied basic needs s uch as food, clothing, or medical care? No 12/12/2023 In the past 12 months have y ou been in a relationship with a person who hurts, threatens, or tries to control you? No 12/12/2023 Sex and Gender Information Value Date Recorded Sex Assigned at Male 09/02/2018 9:07 PM EDT Legal Sex Male 10:27 PM EDT Gender Identity Male 09/02/2018 9:07 PM EDT Sexual Orientation Choose not to disclose 06/18/ 2024 5:04 AM EDT Last Filed Vital Signs Vital Sign Reading Time Taken Comments Blood Pressure 101/64 12/17/2023 7:51 AM EDT Pulse 78 12/17/2023 7:51 AM EDT Temperature 35.7 C (96.3 F) 12/17/2023 7:51 AM EDT Respiratory Rate 18 12/17/2023 7:51 AM EDT Oxygen Saturation 97% 12/17/2023 7:51 AM EDT Inhaled Oxygen Concentration - - Weight 89.7 kg (197 lb 11.2 oz) 12/13/2023 6:00 AM EDT Height 160 cm (5' 3 ) 12/13/2023 6:00 AM EDT Body Mass Index 35.02 12/13/2023 6:00 AM EDT Plan of Treatment Health Maintenance Due Date Last Done Comments DEPRESSION SCREENING 1997 SMOKING Hx and SMOKELESS TOBACCO SCREENING 1998 HIV ONE-TIME SCREENING (18-65 YEARS) 12/20/2003 PNEUMOCOCCAL VACCINES (0-49 years) (2 of 2 - PCV) 02/14/2017 02/15/2016, 03/19/2010 Adult Td,Tdap Booster 05/25/2019 05/25/2009, 000 CREATININE LEVEL 12/11/2024 12/12/2023, , 04/23/2017 POTASSIUM LEVEL 12/11/2024 12/12/2023, 11/16, 04/23/2017 INFLUENZA VACCINE (#1) 2025 8, 03/08/2017, 02/15/2016, Additional history exists COVID-19 VACCINE ( season) 2025 12/01/2020, 11/10/2020 SCREENING FOR DIABETES 12/13/2026 12/14/2023 LIPID PANEL 12/13/2028 12/14/2023, 01/13/2020 HIB VACCINES Completed 12/21/1987 HEPATITIS C SCREENING Completed 05/14/2017 HEPATITIS A VACCINES Aged Out No long er eligible based on patient's age to complete this topic MENINGOCOCCAL VACCINES (ACWY) Aged Out No longer eligible based on patient's age to complete this topic MENINGOCOCCAL VACCINES (B) Aged Out N o longer eligible based on patient's age to complete this topic Medical Devices Not on file Procedures Procedure Name Priority Date/Time Associated Diagnosis Comments LIPID PANEL Routine 12/14/2023 9:56 AM EDT BASIC METABOLIC PANEL STAT 12/12/2023 10:30 PM EDT from Last 3 Months or Most Recently Relevant to Health Maintenance Results * (ABNORMAL) Lipid panel (12/14/2023 9:56 AM EDT) HDL 35 mg/dL [facility] Comment: Interpretation <40 mg/dL: Low HDL cholesterol (major risk factor for CHD) Greater than or equal to 60 mg/dL: High HDL cholesterol ( negative risk factor for CHD) HDL - cholesterol is affected by a number of factors, e.g. smoking, excerise, hormones, sex and age. CHOLESTEROL 97 0 - 240 mg/dL [facility] TRIGLYCERIDES 102 30 - 160 mg/dL [facility] LDL 42(L) 50 - 129 mg/dL [facility] Comment: LDL levels in terms of risk for coronary heart disease: <100 mg/dL: Optimal 100-129 mg/dL: Near or above optimal 130-159 mg/dL: Borderline high 160-189 mg/dL: High >190 mg/dL: Very High CARDIAC RISK RATIO 2.8(L) 3.4 - 5.0 [facility] Blood 12/14/2023 9:56 AM EDT 12/14/2023 10:11 AM EDT [facility]- LAB BLOOD ORDERABLES Viri l Result [address] [address] * (ABNORMAL) Basic metabolic panel (12/12/2023 10:30 PM EDT) SODIUM 140 133 - 146 mmol/L [facility] CHLORIDE 104 96 - 108 mmol/L [facility] POTASSIUM 3.5 3.3 - 5.1 mmol/L [facility] CO2 21 21 - 35 mmol/L [facility] BUN 13 6 - 19 mg/dL [facility] CREATININE 1.00 0.5 - 1.5 mg/dL [facility] GLUCOSE 211(H) 70 - 99 mg/dL [facility] CALCIUM 9.0 8.4 - 10.3 mg/dL [facility] EGFR 99 >59 mL/min/1.7 3m2 [facility] Comment:Estimated glomerular filtration rate calculated using the CKD-EPI refit equation. ANION GAP 19 10 - 20 mmol/L [facility] Blood 12/12/2023 10:3 0 PM EDT 12/12/2023 10:43 PM EDT us Clarissa Guajardo MD, PhD LAB BLOOD ORDERABLE S Final Result [facility] [address] [place] [address] from Last 3 Months or Most Recently Relevant to Health Maintenance Insurance [employer] ( H[employer] ) [facility] [place] [facility] [place] [facility] [place] [facility] [place] [facility]CO [facility] [address] Advance Directives For more information, please contact: [phone] (9AM - 5PM [place], Sunday-Sunday) * Full Code (Latest Code Status on File) Date Activated Date Inactivated Comments 12/13/2023 10:30 AM Question Answer Comments Code Status Confirmed With: Patient Care Teams Client Resource Specialist Relationship Specialty Start Date End Date Luis Rojas NP [facility] [place] [address] PCP - General Nurse Practitioner 12/04/23 Additional Source Comments The information contained in this document represents components of the legal health record. It is not the complete legal health record.[facility]
--- OUTSIDE RECORDS SUMMARY | 2025-03-12 07:50 | XMS_ITS | Encounter Summary ---
Author Organization [facility] Address [address] [place] [address] Phone Care Team Providers Care Director Of Field Service Name Role Phone Stiven Whitley PA-C Primary Care Provider [phone] Abram Win MD Unavailable [email or web address] [email or web address] Faith MD Unavailable +[phone] Purvi Murphy MD Unavailable [phone] Sohail Hassan MD Unavailable [phone] Jerrell Colbert MD Unavailable [phone] Moraima Luther RN Unavailable Sohail Hassan MD Primary Care Provider + [phone] Sohail Hassan MD Unavailable [phone] Luis Rojas NP Primary Care Provider + Encounter Details Date Type Department Care Team (Latest Contact Info) Description 04/23/[address] [facility] [address] [place] [address] Franci Schneider PA-C [address] [place] [address] Abdominal pain, right upper quadrant (Primary Dx) Social History Tobacco Use Types Packs/Day Years Used Date Smoking Tobacco: Never Assessed Sex and Gender Information Value Date Recorded Sex Assigned at Male 09/02/2018 9:07 PM EDT Legal Sex Male 10:27 PM EDT Gender Identity Male 09/02/2018 9:07 PM EDT Sexual Orientation Choose not to disclose 2023 5:04 AM EDT documented as of this encounter Plan of Treatment Not on file documented as of this encounter Procedures Procedure Name Priority Date/Time Associated Diagnosis Comments COMPREHENSIVE METABOLIC PANEL Routine 04/23/2017 4:05 PM EST Abdominal pain, right upper quadrant TISSUE TRANSGLUTAMINASE IGA Routine 04/23/2017 4:05 PM EST Abdominal pain, right upper quadrant CBC AND DIFFERENTIAL Routine 04/23/2017 4:05 PM EST Abdominal pain, right upper quadrant C-REACTIVE PROTEIN Routine 04/23/2017 4: 05 PM EST Abdominal pain, right upper quadrant IMMUNOGLOBULIN A Routine 04/23/2017 4:05 PM EST Abdominal pain, right upper quadrant documented in this encounter Results * Immunoglobulin A (04/23/2017 4:05 PM EST) IgA 374 70 - 400 mg/dL [facility] Blood 04/23/2017 4:05 PM EST 04/23/2017 4:08 PM EST us Franci Schneider PA-C LAB BLOOD ORDERABLES Final Resu lt Performing Organization Address City/[facility]/ZIP Co de Phone Number [address] [address] * (ABNORMAL) C-Reactive Protein (04/23/2017 4:05 PM EST) C REACTIVE PROTEIN 0.8(H) 0 - 0.5 mg/L [facility] Blood 04/23/2017 4:05 PM EST 04/23/2017 4:08 PM EST us Franci Schneider PA-C LAB BLOOD ORDERABLES Final Resu lt [address] [address] * (ABNORMAL) Comprehensive metabolic panel (04/23/2017 4:05 PM EST) Pathologist [facility] SODIUM 138 133 - 146 mmol/L [facility] POTASSIUM 4.0 3.3 - 5.1 mmol/L [facility] CHLORIDE 96 96 - 108 mmol/L [facility] CO2 26 21 - 35 mmol/L [facility] BUN 11 6 - 19 mg/dL [facility] CREATININE 0.90 0.5 - 1.5 mg/dL [facility] GLUCOSE 270(H) 70 - 99 mg/dL [facility] ALBUMIN 4.4 3.9 - 4.8 g/dL [facility] TOTAL PROTEIN 7.6 6.5 - 8.0 g/dL [facility] CALCIUM 9.4 8.4 - 10.3 mg/dL [facility] ALKALINE PHOSPHATASE 78 39 - 117 U/L [facility] TOTAL BILIRUBIN 0.5 0 - 1.2 mg/dL [facility] AST 32 0 - 37 U/L [facility] ALT 54(H) 0 - 40 U/L [facility] GLOBULIN 3.2 1 - 4.8 g/dL [facility] EGFR >60 >60 mL/min/1.7 3m2 [facility] Comment:Abnormal if <60. If patient is -Tristanian, multiply the result by 1.21. ANION GAP 20 10 - 20 mmol/L [facility] Blood 04/23/2017 4:05 PM EST 04/23/2017 4:08 PM EST us Franci Schneider PA-C LAB BLOOD ORDERABLES Final Resu lt [address] [address] * (ABNORMAL) CBC and differential (04/23/2017 4:05 PM EST) WBC 11.00 3.40 - 11.20 K/uL [facility] RBC 5.85(H) 4.50 - 5.50 M/uL [facility] HGB 18.0(H) 13.0 - 17.0 g/dL [facility] HCT 51.5(H) 40.0 - 51.0 % [facility] PLT 215 130 - 400 K/uL [facility] MCV 88.0 79.0 - 98.0 fL [facility] MCH 30.8 27.0 - 34.8 pg [facility] MCHC 35.0 31.5 - 36.0 g/dL [facility] RDW 12.9 10.8 - 14.6 % [facility] MPV 10.9 9.4 - 12.4 fl [facility] NRBC 0.00 /100 WBCs [facility] ABSOLUTE NRBC 0.00 K/uL [facility] DIFF METHOD Manual [facility] TOTAL CELLS COUNTED 100 [facility] NEUTS 53.0 45.30 - 77.70 % [facility] LYMPHS 35.0 12.30 - 39.70 % [facility] MONOS 4.0(L) 4.10 - 12.80 % [facility] EOS 5.0 0 - 7.2 % [facility] BASOS 2.0 0 - 2.80 % [facility] METAS 1.0(H) 0.0 - 0.9 % [facility] ABSOLUTE NEUTS 5.83 1.40 - 7.70 K/uL [facility] ABSOLUTE LYMPHS 3.85(H) 0.60 - 3.20 K/uL [facility] ABSOLUTE MONOS 0.44 0.11 - 0.59 K/uL [facility] ABSOLUTE EOS 0.55(H) 0.01 - 0.50 K/uL [facility] ABSOLUTE BASOS 0.22(H) 0.00 - 0.08 K/uL [facility] ABSOLUTE METAS 0.11(H) 0.00 - 0.05 K/uL [facility] Blood 04/23/2017 4:05 PM EST 04/23/2017 4:08 PM EST us Franci Schneider PA-C LAB BLOOD ORDERABLES Final Resu lt [address] [address] * Tissue transglutaminase IgA (04/23/2017 4:05 PM EST) TTG IGA ANTIBODY <1.2 <4.0 (Negative) U/mL [facility] DPT OF LAB MED AND PAT+ Blood 04/23/2017 4:05 PM EST 04/23/2017 4:08 PM EST us Franci Schneider PA-C LAB BLOOD ORDERABLES Final Resu lt [facility] DPT OF LAB MED AND PAT+ [address] [place] [address] documented in this encounter Visit Diagnoses Diagnosis Abdominal pain, right upper quadrant- Primary documented in this encounter Care Teams Director Of Field Service Relationship Specialty Start Date End Date Stiven Whitley PA-C [address] [place] [address] PCP - General 04/23/17 11/22/20 Sohail Hassan MD [address] [place] [phone] [email or web address] PCP - General Family Medicine 11/23/20 12/03/23 Luis Rojas NP [facility] [place] [address] PCP - General Nurse Practitioner 12/04/23 Abram Win MD [email or web address] Insurance Assigned Provider 09/15/17 02/16/18 Ld Faith MD [address] [place] [address] [email or web address] Insurance Assigned Provider 02/16/18 03/23/18 Purvi Murphy MD [address] [place] [address] Insurance Assigned Provider 03/23/18 09/21/18 Sohail Hassan MD [address] [place] [phone] [email or web address] Insurance Assigned Provider 09/21/18 11/21/20 Jerrell Colbert MD [address] [place] [phone] [email or web address] Insurance Assigned Provider 11/21/20 12/25/20 Moraima Luther RN [address] [place] [address] [email or web address] i[employer] Blower Mechanic 11/23/20 01/05/21 Sohail Hassan MD [address] [place] [phone] [email or web address] Insurance Assigned Provider 12/25/20 11/26/21 documented as of this encounter Additional Source Comments The information contained in this document represents components of the legal health record. It is not the complete legal health record.[facility]
--- OUTSIDE RECORDS SUMMARY | 2025-03-12 07:50 | XMS_ITS | Encounter Summary ---
Author Organization [facility] Address [address] [place] [address] Phone Care Team Providers Care Contour Sander Name Role Phone Stiven Whitley PA-C Primary Care Provider [phone] Abram Win MD Unavailable [email or web address] [email or web address] Faith MD Unavailable [phone] Purvi Murphy MD Unavailable [phone] Sohail Hassan MD Unavailable [phone] Jerrell Colbert MD Unavailable [phone] Moraima Luther RN Unavailable Sohail Hassan MD Primary Care Provider + [phone] Sohail Hassan MD Unavailable [phone] Luis Rojas NP Primary Care Provider + Encounter Details Date Type Department Care Team (Late st Contact Info) Description 05/07/2017 Procedure Pass [facility] Endoscopy Admitting Dept Virtual Department [address] [place] [address] Social History Tobacco Use Types Packs/Day Years [...] on filedocumented in this encounter Care Teams Contour Sander Relationship Specialty Start Date End Date Stiven Whitley PA-C [address] [place] [address] PCP - General 04/23/17 11/22/20 Sohail Hassan MD [address] [place] [phone] [email or web address] PCP - General Family Medicine 11/23/20 12/03/23 Luis Rojas, DAVE [facility] [place] [address] PCP - General Nurse Practitioner 12/04/23 Abram Win MD [email or web address] Insurance Assigned Provider 09/15/17 02/16/18 Ld Faith MD [address] [place] [phone] Insurance Assigned Provider 02/16/18 03/23/18 Purvi Murphy MD [address] [place] [address] Insurance Assigned Provider 03/23/18 09/21/18 Sohail Hassan MD [address] [place] [address] [email or web address] Insurance Assigned Provider 09/21/18 11/21/20 Jerrell Colbert MD [address] [place] [phone] [email or web address] Insurance Assigned Provider 11/21/20 12/25/20 Moraima Luther RN [address] [place] [address] [email or web address] [email or web address] Senior Core Java Developer 11/23/20 01/05/21 Sohail Hassan MD [address] [place] [phone] [email or web address] Insurance Assigned Provider 12/25/20 11/26/21 documented as of this encounter Additional Source Comments The information contained in this document represents components of the legal health record. It is not the complete legal health record.[facility]
--- OUTSIDE RECORDS SUMMARY | 2025-03-12 07:50 | XMS_ITS | Encounter Summary ---
Author Organization [facility] Address [address] [place] [address] Phone Care Team Providers Care Construction Supervisor Name Role Phone Stiven Whitley PA-C Primary Care Provider [phone] Abram Win MD Unavailable [email or web address] [email or web address] Faith MD Unavailable [phone] Purvi Murphy MD Unavailable [phone] Sohail Hassan MD Unavailable [phone] Jerrell Colbert MD Unavailable [phone] Moraima Luther RN Unavailable Sohail Hassan MD Primary Care Provider + [phone] Sohail Hassan MD Unavailable [phone] Luis Rojas NP Primary Care Provider + Encounter Details Date Type Department Care Team (Late st Contact Info) Description 04/16/2017 Ancillary Orders Virtual Department [address] [place] [address] Franci Schneider PA-C [address] [place] [address] Other ascites Social History Tobacco Use Types Packs/Day Years [...] documented as of this encounter Visit Diagnoses Diagnosis Other ascites documented in this encounter Care Teams Construction Supervisor Relationship Specialty Start Date End Date Stiven Whitley PA-C [address] [place] [address] [address] [place] [address] PCP - General 04/23/17 11/22/20 Sohail Hassan MD [address] [place] [phone] [email or web address] PCP - General Family Medicine 11/23/20 12/03/23 Luis Rojas NP [address] [place] [address] [place] [address] PCP - General Nurse Practitioner 12/04/23 Abram Win MD [email or web address] Insurance Assigned Provider 09/15/17 02/16/18 Ld Faith MD [address] [place] [phone] Insurance Assigned Provider 02/16/18 03/23/18 Purvi Murphy MD [address] [place] [phone] Insurance Assigned Provider 03/23/18 09/21/18 Sohail Hassan MD [address] [place] [address] Insurance Assigned Provider 09/21/18 11/21/20 Jerrell Colbert MD [address] [place] [phone] [email or web address] Insurance Assigned Provider 11/21/20 12/25/20 Moraima Luther RN [address] [place] [address] [email or web address] iCMP [place] Cashier 11/23/20 01/05/21 Sohail Hassan MD [address] [place] [address] [email or web address] Assigned Provider 12/25/20 11/26/21 documented as of this encounter Additional Source Comments The information contained in this document represents components of the legal health record. It is not the complete legal health record.[facility]
== END 2025-03-12 08:10 | disposition home or self-care (01) ==
PROVIDERS: PCP Nurse Practitioner Family; Visit Provider Physician Assistant Medical
DX: R10.11 Right upper quadrant pain (principal)

== ENCOUNTER 2025-03-13 14:01 | Outpatient (REF) | payer OTHER, SELFPAY ==
--- NOTE | ~2025-03-13 | US_ITS ---
EXAMINATION: US ABDOMEN LIMITED HISTORY: R10.11 - Right upper quadrant pain TECHNIQUE: Real-time grayscale ultrasound imaging of the right upper quadrant was performed and images were reviewed. COMPARISON: There are no prior studies available for comparison. FINDINGS: Liver: The right lobe of the liver measures 20.2 cm in size. The left lobe of the liver measures 14.7 cm in size. The liver demonstrates increased echotexture, consistent with steatosis. No focal mass or intrahepatic biliary ductal dilatation is identified. There is normal hepatopedal flow in the portal vein. Gallbladder and biliary tree: The gallbladder is surgically absent. The common bile duct is normal in caliber measuring 4 mm. Right Kidney: The right kidney measures 12.4 cm in length. The right kidney is unremarkable, without evidence of masses, hydronephrosis, or calculi. Pancreas: The pancreatic head, neck, and body are unremarkable. The pancreatic tail is obscured by bowel gas. Abdominal aorta and inferior vena cava: The visualized portions of the abdominal aorta and inferior vena cava are normal in caliber. There is no free fluid in the right upper quadrant. US/US abdomen limited IMPRESSION: Hepatomegaly and hepatic steatosis. Otherwise unremarkable right upper quadrant ultrasound. Electronically signed by: Ld Ryan MD 03/13/2025 03:04 PM EDT
--- OUTSIDE RECORDS SUMMARY | 2025-03-13 15:10 | XMS_ITS | Encounter Summary ---
Author Organization [facility] Address [address] [place] [address] Phone Care Team Providers Care Bakery Machine Mechanic Supervisor Name Role Phone Stiven Whitley PA-C Primary Care Provider [phone] Abram Win MD Unavailable [email or web address] Ld Faith MD Unavailable [phone] Purvi Murphy MD Unavailable [phone] Sohail Hassan MD Unavailable [phone] Jerrell Colbert MD Unavailable [phone] Moraima Luther RN Unavailable Sohail Hassan MD Primary Care Provider [phone] Sohail Hassan MD Unavailable [phone] Luis Rojas NP Primary Care Provider + Encounter Details Date Type Department Care Team (Late st Contact Info) Description 05/07/2017 Procedure Pass [facility] Endoscopy Admitting Dept Virtual Department [address] [place] [address] Social History Tobacco Use Types Packs/Day Years [...] on filedocumented in this encounter Care Teams Bakery Machine Mechanic Supervisor Relationship Specialty Start Date End Date Stiven Whitley PA-C [address] [place] [address] PCP - General 04/23/17 11/22/20 Sohail Hassan MD [address] [place] [phone] [email or web address] PCP - General Family Medicine 11/23/20 12/03/23 Lius Rojas, DAVE [facility] [place] [address] PCP - General Nurse Practitioner 12/04/23 Abram Wni MD [email or web address] Insurance Assigned Provider 09/15/17 02/16/18 Ld Faith MD [address] [place] [address] [email or web address] Insurance Assigned Provider 02/16/18 03/23/18 Purvi Murphy MD [address] [place] [address] [email or web address] Insurance Assigned Provider 03/23/18 09/21/18 Sohail Hassan MD [address] [place] [phone] [email or web address] Insurance Assigned Provider 09/21/18 11/21/20 Jerrell Colbert MD [address] [place] [phone] [email or web address] Insurance Assigned Provider 11/21/20 12/25/20 Moraima Luther RN [address] [place] [address] [email or web address] iCMP Photoengraving Helper 11/23/20 01/05/21 Sohail Hassan MD [address] [place] [address] [email or web address] Insurance Assigned Provider 12/25/20 11/26/21 documented as of this encounter Additional Source Comments The information contained in this document represents components of the legal health record. It is not the complete legal health record.[facility]
--- OUTSIDE RECORDS SUMMARY | 2025-03-13 15:11 | XMS_ITS | Encounter Summary ---
Author Organization [facility] Address [address] [place] [address] Phone Care Team Providers Care Director Mba Name Role Phone Stiven Whitley PA-C Primary Care Provider [phone] Abram Wni MD Unavailable [email or web address] Ld Faith MD Unavailable [phone] Purvi Murphy MD Unavailable [phone] Sohail Hassan MD Unavailable [phone] Jerrell Colbert MD Unavailable [phone] Moraima Luther RN Unavailable Sohail Hassan MD Primary Care Provider [phone] Sohail Hassan MD Unavailable [phone] Luis Rojas NP Primary Care Provider + Encounter Details Date Type Department Care Team (Late st Contact Info) Description 04/16/2017 Ancillary Orders Virtual Department [address] [place] [address] Franci Schneider PA-C [address] [place] [address] Other ascites Social History Tobacco Use Types [...] ascites documented in this encounter Care Teams Director Mba Relationship Specialty Start Date End Date Stiven Whitley PA-C [address] [place] [address] [address] [place] [address] PCP - General 04/23/17 11/22/20 Sohail Hassan MD [address] [place] [address] [email or web address] PCP - General Family Medicine 11/23/20 12/03/23 Luis Rojas NP [address] [place] [address] [place] [address] PCP - General Nurse Practitioner 12/04/23 Abram Win MD [email or web address] Insurance Assigned Provider 09/15/17 02/16/18 Ld Faith MD [address] [place] [phone] Insurance Assigned Provider 02/16/18 03/23/18 Purvi Murphy MD [address] [place] [phone] Insurance Assigned Provider 03/23/18 09/21/18 Sohail Hassan MD [address] [place] [address] Insurance Assigned Provider 09/21/18 11/21/20 Jerrell Colbert MD [address] [place] [address] [email or web address] Insurance Assigned Provider 11/21/20 12/25/20 Moraima Luther RN [address] [place] [address] [email or web address] iCMP [place] 11/23/20 01/05/21 Sohail Hassan MD [address] [place] [address] [email or web address] Insurance Assigned Provider 12/25/20 11/26/21 documented as of this encounter Additional Source Comments The information contained in this document represents components of the legal health record. It is not the complete legal health record.[facility]
--- OUTSIDE RECORDS SUMMARY | 2025-03-13 15:11 | XMS_ITS | Clinical Summary ---
Author Organization [facility] Address [address] [address] Phone Care Team Providers Care Supervisor Histology Name Role Phone Luis Rojas NP Primary [...] (12/14/2023 9:56 AM EDT) HDL 35 mg/dL [facility] Comment: Interpretation <40 mg/dL: Low HDL cholesterol (major risk factor for CHD) Greater than or equal to 60 mg/dL: High HDL cholesterol ( negative risk factor for CHD) HDL - cholesterol is affected by a number of factors, e.g. smoking, excerise, hormones, sex and age. CHOLESTEROL 97 0 - 240 mg/dL [facility] TRIGLYCERIDES 102 30 - 160 mg/dL [facility] LDL 42(L) 50 - 129 mg/dL [facility] Comment: LDL levels in terms of risk for coronary heart disease: <100 mg/dL: Optimal 100-129 mg/dL: Near or above optimal 130-159 mg/dL: Borderline high 160-189 mg/dL: High >190 mg/dL: Very High CARDIAC RISK RATIO 2.8(L) 3.4 - 5.0 [facility] Blood 12/14/2023 9:56 AM EDT 12/14/2023 10:11 AM EDT Macario Zazueta [facility]- LAB BLOOD ORDERABLES Viri l Result [address] [address] * (ABNORMAL) Basic metabolic panel (12/12/2023 10:30 PM EDT) SODIUM 140 133 - 146 mmol/L [facility] CHLORIDE 104 96 - 108 mmol/L [facility] POTASSIUM 3.5 3.3 - 5.1 mmol/L [facility] CO2 21 21 - 35 mmol/L [facility] BUN 13 6 - 19 mg/dL [facility] CREATININE 1.00 0.5 - 1.5 mg/dL [facility] GLUCOSE 211(H) 70 - 99 mg/dL [facility] CALCIUM 9.0 8.4 - 10.3 mg/dL [facility] EGFR 99 >59 mL/min/1.7 3m2 [facility] Comment:Estimated glomerular filtration rate calculated using the CKD-EPI refit equation. ANION GAP 19 10 - 20 mmol/L [facility] Blood 12/12/2023 10:3 0 PM EDT 12/12/2023 10:43 PM EDT us Clarissa Guajardo MD, PhD LAB BLOOD ORDERABLE S Final Result [facility] [address] [place] [address] from Last 3 Months or Most Recently Relevant to Health Maintenance Insurance [facility] [place] [facility] [place] [facility] [place] [facility] [place] [facility] ACO [facility] [address] Advance Directives For more information, please contact: [phone] (9AM - 5PM [place], Sunday-[place]) * Full Code (Latest Code Status on File) Date Activated Date Inactivated Comments 12/13/2023 10:30 AM Question Answer Comments Code Status Confirmed With: Patient Care Teams Supervisor Histology Relationship Specialty Start Date End Date Luis Rojas NP [facility] [place] [address] PCP - General Nurse Practitioner 12/04/23 Additional Source Comments The information contained in this document represents components of the legal health record. It is not the complete legal health record.[facility]
--- OUTSIDE RECORDS SUMMARY | 2025-03-13 15:13 | XMS_ITS | Encounter Summary ---
Author Organization [facility] Address [address] [place] [address] Phone Care Team Providers Care Instructional Support Specialist Name Role Phone Stiven Whitley PA-C Primary Care Provider [phone] Abram Win MD Unavailable [email or web address] Ld Faith MD Unavailable [phone] Purvi Murphy MD Unavailable [phone] Sohail Hassan MD Unavailable [phone] Jerrell Colbert MD Unavailable [phone] Moraima Luther RN Unavailable Sohail Hassan MD Primary Care Provider [phone] Sohail Hassan MD Unavailable [phone] Luis Rojas NP Primary Care Provider + Encounter Details Date Type Department Care Team (Late st Contact Info) Description 04/30/2017 Ancillary Orders Virtual Department 30 [place] [address] Franci Schneider PA-C [address] [place] [address] Other ascites Social History Tobacco Use Types [...] on file documented as of this encounter Results * US ABDOMEN LIMITED RIGHT UPPER QUADRANT (04/30/2017 11:56 AM EST) Anatomical Region Laterality Modality Abdomen Ultrasound 04/30/2017 12:0 7 PM EST Impressions 04/30/2017 12:10 PM EST Question fatty infiltration of the liver. No focal hepatic pathology is seen. No explanation for right upper quadrant pain is evident. S/S: Right upper quadrant pain, ascites clinically POS - [id number] Narrative 04/30/2017 12:10 PM EST COMPARISON: None FINDINGS: The pancreas is unremarkable as visualized. The liver appears homogeneous but is mildly echogenic possibly related to fatty infiltration. No focal findings concern are seen. The gallbladder is unremarkable. No bile duct dilatation is seen. The common duct measures 4 mm in diameter. No ascites is noted. The right kidney is not hydronephrotic. The aorta is unremarkable. The inferior vena cava is poorly visualized. Procedure Note Jackson Kim MD - 04/30/2017 COMPARISON: None FINDINGS: The pancreas is unremarkable as visualized. The liver appears homogeneous but is mildly echogenic possibly related tofatty infiltration. No focal findings concern are seen. The gallbladder is unremarkable. No bile duct dilatation is seen. Thecommon duct measures 4 mm in diameter. No ascites is noted. The right kidney is not hydronephrotic. The aorta is unremarkable. The inferior vena cava is poorly visualized. IMPRESSION: Question fatty infiltration of the liver. No focal hepatic pathology isseen. No explanation for right upper quadrant pain is evident. S/S: Right upper quadrant pain, ascites clinically POS - [id number] us Franci Schneider PA-C [facility] US ABDOMEN Final Result documented in this encounter Visit Diagnoses Diagnosis Other ascites Other ascites documented in this encounter Care Teams Instructional Support Specialist Relationship Specialty Start Date End Date Stiven Whitley PA-C [address] [place] [address] [address] [place] [address] PCP - General 04/23/17 11/22/20 Sohail Hassan MD [address] [place] [phone] [email or web address] PCP - General Family Medicine 11/23/20 12/03/23 Luis Rojas, DAVE [facility] [place] [address] PCP - General Nurse Practitioner 12/04/23 Abram Win MD [email or web address] Insurance Assigned Provider 09/15/17 02/16/18 Ld Faith MD [address] [place] [address] [email or web address] Insurance Assigned Provider 02/16/18 03/23/18 Purvi Murphy MD [address] [place] [phone] Insurance Assigned Provider 03/23/18 09/21/18 Sohail Hassan MD [address] [place] [address] [email or web address] Insurance Assigned Provider 09/21/18 11/21/20 Jerrell Colbert MD [address] [place] [phone] [email or web address] Insurance Assigned Provider 11/21/20 12/25/20 Moraima Luther RN [address] [place] [address] [email or web address] [employer] Adjuster 11/23/20 01/05/21 Sohail Hassan MD [address] [place] [phone] [email or web address] Insurance Assigned Provider 12/25/20 11/26/21 documented as of this encounter Additional Source Comments The information contained in this document represents components of the legal health record. It is not the complete legal health record.[facility]
--- OUTSIDE RECORDS SUMMARY | 2025-03-13 15:13 | XMS_ITS | Encounter Summary ---
Author Organization [facility] Address [address] [place] [address] Phone Care Team Providers Care Director Corporate Communications Name Role Phone Stiven Whitley PA-C Primary Care Provider [phone] Abram Win MD Unavailable [email or web address] Ld Faith MD Unavailable [phone] Purvi Murphy MD Unavailable [phone] Sohail Hassan MD Unavailable [phone] Jerrell Colbert MD Unavailable [phone] Moraima Luther RN Unavailable Sohail Hassan MD Primary Care Provider [phone] Sohail Hassan MD Unavailable [phone] Luis Rojas NP Primary Care Provider + Encounter Details Date Type Department Care Team (Latest Contact Info) Description 04/23/2017 Transcribe Orders [facility] [address] [place] [address] Franci Schneider PA-C [address] [place] [address] Abdominal pain, right upper quadrant (Primary Dx) [...] 374 70 - 400 mg/dL [facility] Blood 04/23/2017 4:05 PM EST 04/23/2017 4:08 PM EST us Franci Schneider PA-C LAB BLOOD ORDERABLES Final Resu lt Performing Organization Address City/[facility]/ZIP Co de Phone Number [address] [address] * (ABNORMAL) C-Reactive Protein (04/23/2017 4:05 PM EST) C REACTIVE PROTEIN 0.8(H) 0 - 0.5 mg/L [facility] Blood 04/23/2017 4:05 PM EST 04/23/2017 4:08 PM EST us Franci Schneider PA-C LAB BLOOD ORDERABLES Final Resu lt [address] [address] * (ABNORMAL) Comprehensive metabolic panel (04/23/2017 4:05 PM EST) Pathologist [facility] SODIUM 138 133 - 146 mmol/L [facility] POTASSIUM 4.0 3.3 - 5.1 mmol/L [facility] CHLORIDE 96 96 - 108 mmol/L [facility] CO2 26 21 - 35 mmol/L [facility] BUN 11 6 - 19 mg/dL [facility] CREATININE 0.90 0.5 - 1.5 mg/dL [facility] GLUCOSE 270(H) 70 - 99 mg/dL [facility] ALBUMIN 4.4 3.9 - 4.8 g/dL [facility] TOTAL PROTEIN 7.6 6.5 - 8.0 g/dL [facility] CALCIUM 9.4 8.4 - 10.3 mg/dL [facility] ALKALINE PHOSPHATASE 78 39 - 117 U/L [facility] TOTAL BILIRUBIN 0.5 0 - 1.2 mg/dL [facility] AST 32 0 - 37 U/L [facility] ALT 54(H) 0 - 40 U/L [facility] GLOBULIN 3.2 1 - 4.8 g/dL [facility] EGFR >60 >60 mL/min/1.7 3m2 [facility] Comment:Abnormal if <60. If patient is -[place]icarag[place], multiply the result by 1.21. ANION GAP 20 10 - 20 mmol/L [facility] Blood 04/23/2017 4:05 PM EST 04/23/2017 4:08 PM EST us Franci Schneider PA-C LAB BLOOD ORDERABLES Final Resu lt [address] [address] * (ABNORMAL) CBC and differential (04/23/2017 4:05 PM EST) WBC 11.00 3.40 - 11.20 K/uL [facility] RBC 5.85(H) 4.50 - 5.50 M/uL [facility] HGB 18.0(H) 13.0 - 17.0 g/dL [facility] HCT 51.5(H) 40.0 - 51.0 % [facility] PLT 215 130 - 400 K/uL [facility] MCV 88.0 79.0 - 98.0 fL [facility] MCH 30.8 27.0 - 34.8 pg [facility] MCHC 35.0 31.5 - 36.0 g/dL [facility] RDW 12.9 10.8 - 14.6 % [facility] MPV 10.9 9.4 - 12.4 fl [facility] NRBC 0.00 /100 WBCs [facility] ABSOLUTE NRBC 0.00 K/uL [facility] DIFF METHOD Manual [facility] TOTAL CELLS COUNTED 100 [facility] NEUTS 53.0 45.30 - 77.70 % [facility] LYMPHS 35.0 12.30 - 39.70 % [facility] MONOS 4.0(L) 4.10 - 12.80 % [facility] EOS 5.0 0 - 7.2 % [facility] BASOS 2.0 0 - 2.80 % [facility] METAS 1.0(H) 0.0 - 0.9 % [facility] ABSOLUTE NEUTS 5.83 1.40 - 7.70 K/uL [facility] ABSOLUTE LYMPHS 3.85(H) 0.60 - 3.20 K/uL [facility] ABSOLUTE MONOS 0.44 0.11 - 0.59 K/uL [facility] ABSOLUTE EOS 0.55(H) 0.01 - 0.50 K/uL [facility] ABSOLUTE BASOS 0.22(H) 0.00 - 0.08 K/uL [facility] ABSOLUTE METAS 0.11(H) 0.00 - 0.05 K/uL [facility] Blood 04/23/2017 4:05 PM EST 04/23/2017 4:08 PM EST us Franci Schneider PA-C LAB BLOOD ORDERABLES Final Resu lt [address] [address] * Tissue transglutaminase IgA (04/23/2017 4:05 PM EST) TTG IGA ANTIBODY <1.2 <4.0 (Negative) U/mL [facility] DPT OF LAB MED AND PAT+ Blood 04/23/2017 4:05 PM EST 04/23/2017 4:08 PM EST us Franci Schneider PA-C LAB BLOOD ORDERABLES Final Resu lt [facility] DPT OF LAB MED AND PAT+ [address] [place] [address] documented in this encounter Visit Diagnoses Diagnosis Abdominal pain, right upper quadrant- Primary documented in this encounter Care Teams Director Corporate Communications Relationship Specialty Start Date End Date Stiven Whitley PA-C [address] [place] [address] PCP - General 04/23/17 11/22/20 Sohail Hassan MD [address] [place] [phone] [email or web address] PCP - General Family Medicine 11/23/20 12/03/23 Luis Rojas NP [facility] [place] [address] PCP - General Nurse Practitioner 12/04/23 Abram Win MD [email or web address] Insurance Assigned Provider 09/15/17 02/16/18 Ld Faith MD [address] [place] [address] [email or web address] Insurance Assigned Provider 02/16/18 03/23/18 Purvi Murphy MD [address] [place] [phone] Insurance Assigned Provider 03/23/18 09/21/18 Sohail Hassan MD [address] [place] [address] [email or web address] Insurance Assigned Provider 09/21/18 11/21/20 Jerrell Colbert MD [address] [place] [phone] [email or web address] Insurance Assigned Provider 11/21/20 12/25/20 Moraima Luther RN [address] [place] [address] [email or web address] Legal Service Specialist 11/23/20 01/05/21 Sohail Hassan MD [address] [place] [phone] [email or web address] Insurance Assigned Provider 12/25/20 11/26/21 documented as of this encounter Additional Source Comments The information contained in this document represents components of the legal health record. It is not the complete legal health record.[facility]
== END 2025-03-13 14:02 | disposition home or self-care (01) ==
LOC: HO.US 14:01
PROVIDERS: PCP Nurse Practitioner Family; Visit Provider Physician Assistant Medical
DX: R10.11 Right upper quadrant pain (principal)
CPT/HCPCS: 76705

== ENCOUNTER → 2025-03-13 14:13 | Outpatient (BNV) | payer OTHER, SELFPAY | PROVIDERS: PCP Nurse Practitioner Family; Visit Provider Radiology Diagnostic Radiology | DX: R16.0 Hepatomegaly, not elsewhere classified (principal); K76.0 Fatty (change of) liver, not elsewhere classified | CPT/HCPCS: 76705 ==

== ENCOUNTER 2025-06-10 13:05 | Outpatient (AMB) | payer OTHER, SELFPAY ==
--- OUTSIDE RECORDS SUMMARY | 2025-06-10 13:09 | XMS_ITS | Clinical Summary ---
Author Organization [facility] Address [address] [address] Phone Care Team Providers Care Court Officer Name Role Phone Luis Rojas NP Primary [...] 12/14/2023 9:56 AM EDT BASIC METABOLIC PANEL (BMP) STAT 12/12/2023 10:30 PM EDT from Last 3 Months or Most Recently Relevant to Health Maintenance Results * (ABNORMAL) Lipid panel (12/14/2023 9:56 AM EDT) HDL 35 mg/dL [facility] Comment: Interpretation <40 mg/dL: Low HDL cholesterol (major risk factor for CHD) Greater than or equal to 60 mg/dL: High HDL cholesterol ( negative risk factor for CHD) HDL - cholesterol is affected by a number of factors, e.g. smoking, excerise, hormones, sex and age. CHOLESTEROL 97 0 - 240 mg/dL [facility] TRIGLYCERIDES 102 30 - 160 mg/dL [facility] LDL 42(L) 50 - 129 mg/dL [facility] Comment: LDL levels in terms of risk for coronary heart disease: <100 mg/dL: Optimal 100-129 mg/dL: Near or above optimal 130-159 mg/dL: Borderline high 160-189 mg/dL: High >190 mg/dL: Very High CARDIAC RISK RATIO 2.8(L) 3.4 - 5.0 C [facility] Blood 12/14/2023 9:56 AM EDT 12/14/2023 10:11 AM EDT Macario Zazueta PMHNP- LAB BLOOD BKR ORDERABLES Final Result [address] [address] * (ABNORMAL) Basic metabolic panel (12/12/2023 10:30 PM EDT) SODIUM 140 133 - 146 mmol/L [facility] CHLORIDE 104 96 - 108 mmol/L [facility] POTASSIUM 3.5 3.3 - 5.1 mmol/L [facility] CO2 21 21 - 35 mmol/L [facility] BUN 13 6 - 19 mg/dL [facility] CREATININE 1.00 0.5 - 1.5 mg/dL [facility] GLUCOSE 211(H) 70 - 99 mg/dL [facility] CALCIUM 9.0 8.4 - 10.3 mg/dL [facility] EGFR 99 >59 mL/min/1.7 3m2 [facility] Comment:Estimated glomerular filtration rate calculated using the CKD-EPI refit equation. ANION GAP 19 10 - 20 mmol/L [facility] Blood 12/12/2023 10:3 0 PM EDT 12/12/2023 10:43 PM EDT us Clarissa Guajardo MD, PhD LAB BLOOD BKR ORDER BRAYAN Final Result [facility] [address] [place] [address] from Last 3 Months or Most Recently Relevant to Health Maintenance Insurance [facility] [place] [place] [facility] [place] [address] [place] [address] Advance Directives For more information, please contact: [phone] (9AM - 5PM [place], Sunday-Sunday) * Full Code (Latest Code Status on File) Date Activated Date Inactivated Comments 12/13/2023 10:30 AM Question Answer Comments Code Status Confirmed With: Patient Care Teams Court Officer Relationship Specialty Start Date End Date Luis Rojas NP [facility] [place] [address] PCP - General Nurse Practitioner 12/04/23 Additional Source Comments The information contained in this document represents components of the legal health record. It is not the complete legal health record.[facility]
--- OUTSIDE RECORDS SUMMARY | 2025-06-10 13:09 | XMS_ITS | Encounter Summary ---
Author Organization [facility] Address [address] [place] [address] Phone Care Team Providers Care Hat Sprayer Name Role Phone Stiven Whitley PA-C Primary Care Provider [phone] Abram Win MD Unavailable [email or web address] Ld Faith MD Unavailable [phone] Purvi Murphy MD Unavailable [phone] Sohail Hassan MD Unavailable [phone] Jerrell Colbert MD Unavailable [phone] Moraima Luther RN Unavailable Sohail Hassan MD Primary Care Provider [phone] Sohail Hassan MD Unavailable [phone] Luis Rojas NP Primary Care Provider + Encounter Details Date Type Department Care Team (Late st Contact Info) Description 04/30/2017 Ancillary Orders Virtual Department [address] [place] [address] Franci Schneider PA-C [address] [place] [address] Other ascites Social History Tobacco Use Types [...] upper quadrant pain, ascites clinically POS - [id number] Narrative 04/30/2017 12:10 PM EST COMPARISON: None [...] upper quadrant pain, ascites clinically POS - [id number] us Franci Schneider PA-C [facility] US ABDOMEN Final Result documented in this encounter Visit Diagnoses Diagnosis Other ascites Other ascites documented in this encounter Care Teams Hat Sprayer Relationship Specialty Start Date End Date Stiven Whitley PA-C [address] [place] [address] [address] [place] [address] PCP - General 04/23/17 11/22/20 Sohail Hassan MD [address] [place] [phone] [email or web address] PCP - General Family Medicine 11/23/20 12/03/23 Luis Rojas, DAVE [facility] [place] [address] PCP - General Nurse Practitioner 12/04/23 Abram Win MD [email or web address] Insurance Assigned Provider 09/15/17 02/16/18 Ld Faith MD [address] [place] [phone] [email or web address] Insurance Assigned Provider 02/16/18 03/23/18 Purvi Murphy MD [address] [place] [id number] Insurance Assigned Provider 03/23/18 09/21/18 Sohail Hassan MD [address] [place] [id number] [email or web address] Insurance Assigned Provider 09/21/18 11/21/20 Jererll Colbert MD [address] [place] [phone] [email or web address] Insurance Assigned Provider 11/21/20 12/25/20 Moraima Luther RN [address] [place] [address] [email or web address] 11/23/20 01/05/21 Sohail Hassan MD [address] [place] [address] [email or web address] Insurance Assigned Provider 12/25/20 11/26/21 documented as of this encounter Additional Source Comments The information contained in this document represents components of the legal health record. It is not the complete legal health record.[facility]
--- OUTSIDE RECORDS SUMMARY | 2025-06-10 13:09 | XMS_ITS | Encounter Summary ---
Author Organization [facility] Address [address] [place] [address] Phone Care Team Providers Care Garage Helper Name Role Phone Stiven Whitley PA-C Primary Care Provider [phone] Abram Win MD Unavailable [email or web address] Ld Faith MD Unavailable [phone] Purvi Murphy MD Unavailable [phone] Sohail Hassan MD Unavailable [phone] Jerrell Colbert MD Unavailable [phone] Moraima Luther RN Unavailable Sohail Hassan MD Primary Care Provider + [phone] Sohail Hassan MD Unavailable [phone] Luis Rojas NP Primary Care Provider + Encounter Details Date Type Department Care Team (Latest Contact Info) Description 04/23/[address] [facility] Phleb Jannie [address] [place] [address] [place] [address] Franci Schneider PA-C [address] [place] [address] Abdominal pain, right upper quadrant (Primary Dx) [...] Date/Time Associated Diagnosis Comments COMPREHENSIVE METABOLIC PANEL (CMP) Routine 04/23/2017 4:05 PM EST Abdominal pain, right upper quadrant TISSUE TRANSGLUTAMINASE IGA Routine 04/23/2017 4:05 PM EST Abdominal pain, right upper quadrant CBC AND DIFFERENTIAL Routine 04/23/2017 4:05 PM EST Abdominal pain, right upper quadrant C-REACTIVE PROTEIN (CRP) Routine 017 4:05 PM EST Abdominal pain, right upper quadrant IMMUNOGLOBULIN A Routine 04/23/2017 4:05 PM EST Abdominal pain, right upper quadrant documented in this encounter Results * Immunoglobulin A (04/23/2017 4:05 PM EST) IgA 374 70 - 400 mg/dL [facility] Blood 04/23/2017 4:05 PM EST 04/23/2017 4:08 PM EST Franci Schneider PA-C LAB BLOOD BKR ORDERABLES Final Result Performing Organization Address City/[facility] Co de Phone Number [address] [address] * (ABNORMAL) C-Reactive Protein (04/23/2017 4:05 PM EST) C REACTIVE PROTEIN 0.8(H) 0 - 0.5 mg/L [facility] Blood 04/23/2017 4:05 PM EST 04/23/2017 4:08 PM EST Franci Schneider PA-C LAB BLOOD BKR ORDERABLES Final Result [address] [address] * (ABNORMAL) Comprehensive metabolic panel (04/23/2017 4:05 PM EST) SODIUM 138 133 - 146 mmol/L [facility] POTASSIUM 4.0 3.3 - 5.1 mmol/L [facility] CHLORIDE 96 96 - 108 mmol/L [facility] CO2 26 21 - 35 mmol/L [facility] BUN 11 6 - 19 mg/dL [facility] CREATININE 0.90 0.5 - 1.5 mg/dL [facility] GLUCOSE 270(H) 70 - 99 mg/dL [facility] ALBUMIN 4.4 3.9 - 4.8 g/dL [facility] TOTAL PROTEIN 7.6 6.5 - 8.0 g/dL [facility] CALCIUM 9.4 8.4 - 10.3 mg/dL [facility] ALKALINE PHOSPHATASE 78 39 - 117 U/L [facility] TOTAL BILIRUBIN 0.5 0 - 1.2 mg/dL [facility] AST 32 0 - 37 U/L [facility] ALT 54(H) 0 - 40 U/L [facility] GLOBULIN 3.2 1 - 4.8 g/dL [facility] EGFR >60 >60 mL/min/1.7 3m2 [facility] Comment:Abnormal if <60. If patient is -Trinidadian, multiply the result by 1.21. ANION GAP 20 10 - 20 mmol/L [facility] Blood 04/23/2017 4:05 PM EST 04/23/2017 4:08 PM EST us Franci Schneider PA-C LAB BLOOD BKR ORDERABLES Final Result [address] [address] * (ABNORMAL) CBC and differential (04/23/2017 4:05 PM EST) WBC 11.00 3.40 - 11.20 K/uL [facility] RBC 5.85(H) 4.50 - 5.50 M/uL [facility] HGB 18.0(H) 13.0 - 17.0 g/dL [facility] HCT 51.5(H) 40.0 - 51.0 % [facility] PLT 215 130 - 400 K/uL [facility] MCV 88.0 79.0 - 98.0 fL [facility] MCH 30.8 27.0 - 34.8 pg [facility] MCHC 35.0 31.5 - 36.0 g/dL [facility] RDW 12.9 10.8 - 14.6 % [facility] MPV 10.9 9.4 - 12.4 fl [facility] NRBC 0.00 /100 WBCs [facility] ABSOLUTE NRBC 0.00 K/uL [facility] DIFF METHOD Manual [facility] TOTAL CELLS COUNTED 100 [facility] NEUTS 53.0 45.30 - 77.70 % [facility] LYMPHS 35.0 12.30 - 39.70 % [facility] MONOS 4.0(L) 4.10 - 12.80 % [facility] EOS 5.0 0 - 7.2 % [facility] BASOS 2.0 0 - 2.80 % [facility] METAS 1.0(H) 0.0 - 0.9 % [facility] ABSOLUTE NEUTS 5.83 1.40 - 7.70 K/uL [facility] ABSOLUTE LYMPHS 3.85(H) 0.60 - 3.20 K/uL [facility] ABSOLUTE MONOS 0.44 0.11 - 0.59 K/uL [facility] ABSOLUTE EOS 0.55(H) 0.01 - 0.50 K/uL [facility] ABSOLUTE BASOS 0.22(H) 0.00 - 0.08 K/uL [facility] ABSOLUTE METAS 0.11(H) 0.00 - 0.05 K/uL [facility] Blood 04/23/2017 4:05 PM EST 04/23/2017 4:08 PM EST us Franci Schneider PA-C LAB BLOOD BKR ORDERABLES Final Result [facility] [address] [place] [address] * Tissue transglutaminase IgA (04/23/2017 4:05 PM EST) TTG IGA ANTIBODY <1.2 <4.0 (Negative) U/mL [facility] Blood 04/23/2017 4:05 PM EST 04/23/2017 4:08 PM EST us Franci Schneider PA-C LAB BLOOD BKR ORDERABLES Final Result [facility] [address] [place] [address] documented in this encounter Visit Diagnoses Diagnosis Abdominal pain, right upper quadrant- Primary documented in this encounter Care Teams Garage Helper Relationship Specialty Start Date End Date Stiven Whitley PA-C [address] [place] [address] PCP - General 04/23/17 11/22/20 Sohail Hassan MD [address] [place] [phone] [email or web address] PCP - General Family Medicine 11/23/20 12/03/23 Luis Rojas, DAVE [facility] [place] [address] PCP - General Nurse Practitioner 12/04/23 Abram Win MD [email or web address] Insurance Assigned Provider 09/15/17 02/16/18 Ld Faith MD [address] [place] [address] [email or web address] Insurance Assigned Provider 02/16/18 03/23/18 Purvi Murphy MD [address] [place] [address] Insurance Assigned Provider 03/23/18 09/21/18 Sohail Hassan MD [address] [place] [phone] [email or web address] Insurance Assigned Provider 09/21/18 11/21/20 Jerrell Colbert MD [address] [place] [phone] [email or web address] Insurance Assigned Provider 11/21/20 12/25/20 Moraima Luther RN [address] [place] [address] [email or web address] [facility] Bone Tender 11/23/20 01/05/21 Sohail Hassan MD [address] [place] [phone] [email or web address] Insurance Assigned Provider 12/25/20 11/26/21 documented as of this encounter Additional Source Comments The information contained in this document represents components of the legal health record. It is not the complete legal health record.[facility]
--- OUTSIDE RECORDS SUMMARY | 2025-06-10 13:09 | XMS_ITS | Encounter Summary ---
Author Organization [facility] Address [address] [place] [address] Phone Care Team Providers Care Personal Computer Specialist Name Role Phone Stiven Whitley PA-C Primary Care Provider [phone] Abram Win MD Unavailable [email or web address] Ld Faith MD Unavailable [phone] Purvi Murphy MD Unavailable [phone] Sohail Hassan MD Unavailable [phone] Jerrell Colbert MD Unavailable [phone] Moraima Luther RN Unavailable Sohail Hassan MD Primary Care Provider [phone] Sohail Hassan MD Unavailable [phone] Luis Rojas NP Primary Care Provider + Encounter Details Date Type Department Care Team (Late st Contact Info) Description 05/07/2017 Procedure Pass [facility] Endoscopy Admitting Dept Virtual Department [address] [place] [address] Social History Tobacco Use Types Packs/Day Years [...] on filedocumented in this encounter Care Teams Personal Computer Specialist Relationship Specialty Start Date End Date Stiven Whitley PA-C [address] [place] [address] PCP - General 04/23/17 11/22/20 Sohail Hassan MD [address] [place] [address] [email or web address] PCP - General Family Medicine 11/23/20 12/03/23 Luis Rojas, DAVE [facility] [place] [address] PCP - General Nurse Practitioner 12/04/23 Abram Win MD [email or web address] Insurance Assigned Provider 09/15/17 02/16/18 Ld Faith MD [address] [place] [address] [email or web address] Insurance Assigned Provider 02/16/18 03/23/18 Purvi Murphy MD [address] [place] [address] [email or web address] Insurance Assigned Provider 03/23/18 09/21/18 Sohail Hassan MD [address] [place] [address] [email or web address] Insurance Assigned Provider 09/21/18 11/21/20 Jerrell Colbert MD [address] [place] [phone] [email or web address] Insurance Assigned Provider 11/21/20 12/25/20 Moraima Luther RN [address] [place] [address] [email or web address] [facility] Keg Washer 11/23/20 01/05/21 Sohail Hassan MD [address] [place] [address] [email or web address] Insurance Assigned Provider 12/25/20 11/26/21 documented as of this encounter Additional Source Comments The information contained in this document represents components of the legal health record. It is not the complete legal health record.[facility]
--- OUTSIDE RECORDS SUMMARY | 2025-06-10 13:09 | XMS_ITS | Encounter Summary ---
Author Organization [facility] Address [address] [place] [address] Phone Care Team Providers Care Procurement Coordinator Name Role Phone Stiven Whitley PA-C Primary Care Provider [phone] Abram Win MD Unavailable [email or web address] [email or web address] Faith MD Unavailable [phone] Purvi Murphy MD Unavailable [phone] Sohail Hassan MD Unavailable [phone] Jerrell Colbert MD Unavailable [phone] Moraima Luther RN Unavailable Sohail Hassan MD Primary Care Provider [phone] Sohail Hassan MD Unavailable [phone] Luis Rojas NP Primary Care Provider + Encounter Details Date Type Department Care Team (Late st Contact Info) Description 04/16/2017 Ancillary Orders Virtual Department [address] [place] [address] Franci Schneider PA-C [address] [place] [address] Other ascites Social History Tobacco Use Types [...] ascites documented in this encounter Care Teams Procurement Coordinator Relationship Specialty Start Date End Date Stiven Whitley PA-C [address] [place] [address] [address] [place] [address] PCP - General 04/23/17 11/22/20 Sohail Hassan MD [address] [place] [phone] [email or web address] PCP - General Family Medicine 11/23/20 12/03/23 Luis Rojas NP [address] [place] [address] [place] [address] PCP - General Nurse Practitioner 12/04/23 Abram Win MD [email or web address] Insurance Assigned Provider 09/15/17 02/16/18 Ld Faith MD [address] [place] [phone] Insurance Assigned Provider 02/16/18 03/23/18 Purvi Murphy MD [address] [place] [address] Insurance Assigned Provider 03/23/18 09/21/18 Sohail Hassan MD [address] [place] [phone] Insurance Assigned Provider 09/21/18 11/21/20 Jerrell Colbert MD [address] [place] [phone] [email or web address] Assigned Provider 11/21/20 12/25/20 Moraima Luther RN [address] [place] [address] [email or web address] [facility] Treasury Manager 11/23/20 01/05/21 Sohail Hassan MD [address] [place] [address] [email or web address] Assigned Provider 12/25/20 11/26/21 documented as of this encounter Additional Source Comments The information contained in this document represents components of the legal health record. It is not the complete legal health record.[facility]
[2025-06-10 13:14] VITALS: BP 102/62; PULSE 93; O2SAT 96; BMI 37.1
--- NOTE | 2025-06-10 13:14 | MHC.PC.OV ---
Vital Signs 06/10/25 13:14 Height 5 ft 4 in Weight 216 lb BMI 37.1 BP 102/62 Blood Pressure Location Lt brachial Pulse 93 Pulse Source Pulse Oximeter Pulse Oximetry (%) 96 Oxygen Delivery Method Room Air Intake Visit Reasons: 4 months f/up [place] Required: No Accompanied by: Self / Same As Patient Allergies cefaclor (From Ceclor) Allergy (Mild, Verified 06/10/25 13:15) Rash sulfamethoxazole (From Bactrim) Allergy (Mild, Verified 06/10/25 13:15) Rash trimethoprim (From Bactrim) Allergy (Mild, Verified 06/10/25 13:15) Rash metformin Adverse Reaction (Intermediate, Verified 06/10/25 13:15) Nausea cillins Allergy (Intermediate, Uncoded 03/12/25 07:50) Anaphylaxis Medication List - Last Reconciled 06/10/25 by Luis Rojas, ANESTHETIC ASSISTANT- aripiprazole 5 mg PO DAILY atorvastatin 10 mg PO BEDTIME 90 days blood sugar diagnostic (FreeStyle Lite Strips) tid testing blood-glucose meter (FreeStyle Lite Meter kit) TID testing bupropion HCl XL 150 mg PO DAILY glipizide ER 2.5 mg PO DAILY glucose (Dex4 Glucose Quick Dissolve) 16 grams (4 x 4 gram) PO Q15M PRN lamotrigine 50 mg PO DAILY lancets (FreeStyle Lancets) TID testing paliperidone palm (3 month) (Invega Trinza) mg IM tirzepatide (Mounjaro) 2.5 mg (0.5 mL) subcut QWEEK Tobacco use date assessed: 06/10/25 Dental Screening Dental Screen Date: 06/10/25 Did you have a dental visit in the last 12 months?: Yes Did you have a dental problem in the last 6 months where you did not have access to dental care?: No Was dental information given to patient?: Patient has dentist HPI 4 months f/up HPI Details Chief Complaint The patient presents for a follow-up visit for management of diabetes. History of Present Illness The patient is a 39 year old male presenting with a follow-up for diabetes. His A1c is currently 9.1. He has been non-adherent with his prescriptions for Jardiance and Trulicity due to insurance issues. He also stopped taking Jardiance because it caused balanitis, which he reports has now resolved. The patient has also been seen by an towboat operator. He denies symptoms including neuropathy, chest pain, shortness of breath, dizziness, blurred vision, headaches, polyuria, and polydipsia. His diabetic eye exam is reportedly up to date. On a statin. Pt reported understanding the s/s of hypoglycemia and how to correct it. Social History - Financial/Insurance: The patient reports insurance issues have led to non-adherence with his prescribed medications. Health Maintenance The patient received an influenza vaccination today. A diabetic foot exam was performed and showed intact feet with positive sensation. The patient reports that his diabetic eye exam is up to date. Review of Systems - Neurological: Denies neuropathy, dizziness, and headaches. - Cardiovascular: Denies chest pain. - Respiratory: Denies shortness of breath. - Eyes: Denies blurred vision. - Endocrine: Denies polyuria and polydipsia. - Genitourinary: Reports a history of balanitis that has since resolved. Physical Exam General: Cooperative, healthy appearing, comfortable, no acute distress and well developed, obese Orientation: Patient oriented x3 Limitations: No limitations Head: Normal to inspection Ears: Hearing grossly normal bilaterally Nose: Normal external nose present Face and sinus: Normal facial exam Eyes: Appearance normal, both eyes and all related structures Neck: Normal visual inspection and Yes full ROM Respiratory: Normal respiratory effort and able to speak in complete sentences. Clear to auscultation bilaterally Cardiovascular: Regular rate and rhythm. Normal S1 and S2 GI: Normal to inspection. Soft to palpation and nontender Skin: No rashes or lesions noted Neuro: Patient oriented x3 Extremities: Feet were intact, positive sensation using monofilament and tuning fork 128. Normal to inspection Results - Labs: HgbA1c is 9.1. Plan 1. Type 2 Diabetes Mellitus The patient's A1c is elevated at 9.1, secondary to non-adherence with Jardiance and Trulicity due to insurance barriers and a history of balanitis with Jardiance. A decision was made to start Mounjaro and glipizide. The patient was educated on the signs of hypoglycemia and its management. He will have fasting lab work completed in the near future. Follow-up is scheduled in approximately four months. 2. obesity: starting a different glp 1 agonist. encouraged watching diet 3. dyslipidemia on a statin, will check labs Discussion Notes I discussed the patient's elevated A1c of 9.1 with him, noting that this is due to non-adherence with his previous medications, partly because of insurance issues and also due to a prior infection with Jardiance. We will initiate Mounjaro and glipizide, and I have educated him on the signs and correction of hypoglycemia. I have instructed him to obtain fasting lab work soon. We performed a foot exam today, which was normal, and he confirmed his eye exam is up to date. We also administered his flu vaccination. I will see him for a follow-up visit in about four months. Patient Instructions - You will start new medications for your diabetes: Mounjaro and glipizide. - Be aware of the signs of low blood sugar, which can include feeling shaky, sweaty, or confused, and know how to treat it. - You received your flu shot during today's visit. - Please get fasting blood work done in the near future. - Schedule a follow-up appointment with our office in about four months. [facility] Medical History Diabetes mellitus with hyperglycemia Suicidal ideation Schizo affective schizophrenia Surgical History S/P cholecystectomy S/P tonsillectomy S/P panniculectomy Social History Housing: House Patient Tobacco Use Status: Former Tobacco user Cigarettes Per Day: 4 e-Cigarette/Vaping Use: Currently Using Second Hand Smoke Exposure: No service: No Current occupational status: employed Cognitive needs: No Hearing needs: No Vision needs: No Questionnaire PHQ-9 Over the last 2 weeks, how often have you been bothered by any of the following problems? 1. Little interest or pleasure in doing things: not at all 2. Feeling down, depressed, or hopeless: not at all 3. Trouble falling or staying asleep, or sleeping too much: not at all 4. Feeling tired or having little energy: not at all Source: Developed by Drs. Ld Miller, Talia Gu, Isaac Hooks and colleagues, with an educational alfonso from [employer]. Thrive Questionnaire Date Thrive assessed: 08/04/24 I am a: Parent/Caregiver What is your living situation today?: I have a steady place to live Within the past 12 months, did the food you bought not last and you didn't have the money to get more?: Sometimes True Within the past 12 months, did you worry whether your food would run out before you got money to buy more?: Sometimes True Do you have trouble paying for medicines?: No Do you have trouble getting transportation to medical appointments?: No Do you have trouble paying your heating and electricity bill?: Yes Do you have trouble taking care of your child, family member or friend?: No Do you have trouble with day-to-day activities such as bathing, preparing meals, shopping, managing finances, etc.?: No Are you currently unemployed and looking for a job?: No Are you interested in more education?: No Currently or been in a relationship where the following occur: No concerns reported THRIVE Score: 3 KATIE-7 AMB Questionnaire KATIE-7 Date KATIE - 7 assessed: 01/19/25 Source: Developed by Drs. Ld Miller, Talia Gu, Isaac Hooks and colleagues, with an educational alfonso from [employer]. Physical exam (Primary Care) Vital Signs: Last Vital Signs Pulse 93 06/10/25 13:14 BP 102/62 06/10/25 13:14 Pulse Ox 96 06/10/25 13:14 Oxygen Delivery Method Room Air 06/10/25 13:14 BMI result Body Mass Index 37.1 Tobacco/Smoking Status: Tobacco use Status Tobacco use date assessed 06/10/25 06/10/25 13:22 Patient Tobacco Use Status Former Tobacco user 06/10/25 13:15 e-Cigarette/Vaping Use Currently Using 06/10/25 13:15 Thrive Assessment: Date of Thrive Assessment Date Thrive assessed 08/04/24 06/10/25 13:15 Currently or been in a relationship where the following occur: No concerns reported Office Procedures Diabetic Foot Exam G9226 - Diabetic Foot Exam (+ sensation with use of tuning fork 128 and monofilament. feet were intact bilat) Results AMB Hemoglobin A1c AMB Hemoglobin A1c 9.1 % Last Edit by Jessica Logan MA on 06/10/25 13:37 Results Reviewed Results Reviewed: Laboratory Last Values Hgb A1c (Clinic) 9.1 % (4.0-6.0) H 06/10/25 13:36 Coding Level of Care Code Est Pt Level 4 (38933) Diagnoses Diabetes mellitus with hyperglycemia E11.65 Obesity E66.9 Dyslipidemia E78.5 CPT Codes Diabetic Foot Exam - CPT: G9226 - Diabetic Foot Exam ([id number]) Assessment & Plan Assessment & Plan (1) Diabetes mellitus with hyperglycemia: Code(s): E11.65 - Type 2 diabetes mellitus with hyperglycemia Category: Medical (2) Obesity: Code(s): E66.9 - Obesity, unspecified Category: Medical (3) Dyslipidemia: Code(s): E78.5 - Hyperlipidemia, unspecified Category: Medical Plan . Orders: Orders Comprehensive [place]. Panel Fast Today E11.65 - Type 2 diabetes mellitus with hyperglycemia TSH reflex Free T4 Today E11.65 - Type 2 diabetes mellitus with hyperglycemia UA CC w/rflx Micro + Cult Today E11.65 - Type 2 diabetes mellitus with hyperglycemia AMB Hemoglobin A1c Today E11.9 - Type 2 diabetes mellitus without complications Influenza [id number] Immunization Today Z23 - Encounter for immunization Complete Blood Count Auto Diff Today E11.65 - Type 2 diabetes mellitus with hyperglycemia Lipid Panel Today E11.65 - Type 2 diabetes mellitus with hyperglycemia Microalbumin, Random (w Creat) Today E11.65 - Type 2 diabetes mellitus with hyperglycemia Medications: New tirzepatide (Mounjaro) for 4 weeks 2.5 mg (0.5 mL) subcut QWEEK 2 mL 0RF glipizide ER 2.5 mg PO DAILY 90 tabs 0RF Fluarix [id number] (PF) (flu vac ts (6mos up)-PF) 0.5 mL IM ONCE 0.5 mL 0RF NS Z23 - Encounter for immunization Discontinued dulaglutide Discontinued Reason: No Longer Medically Relevant 1.5 mg (0.5 mL) subcut QWEEK 30 days 2.5 mL 0RF empagliflozin (Jardiance) Discontinued Reason: Doctor's Order 25 mg PO DAILY 90 tabs 0RF
== END 2025-06-10 13:58 | disposition home or self-care (01) ==
LOC: HO.HMCC 13:06
PROVIDERS: PCP Nurse Practitioner Family; Visit Provider Nurse Practitioner Family
DX: E11.65 Type 2 diabetes mellitus with hyperglycemia (principal); E66.9 Obesity, unspecified; E78.5 Hyperlipidemia, unspecified; Z23 Encounter for immunization; E11.9 Type 2 diabetes mellitus without complications

== ENCOUNTER → 2025-06-10 13:05 | Outpatient (BNVA) | payer OTHER, SELFPAY | PROVIDERS: PCP Nurse Practitioner Family; Visit Provider Nurse Practitioner Family | DX: Z23 Encounter for immunization (principal); E11.65 Type 2 diabetes mellitus with hyperglycemia; E66.9 Obesity, unspecified; E78.5 Hyperlipidemia, unspecified; Z68.37 Body mass index [BMI] 37.0-37.9, adult | CPT/HCPCS: 83036; 90471; 90656; 99212 ==